=== PATIENT | male | born 1975 | race Hispanic/Latino ===

== ENCOUNTER 2019-03-10 09:56 | Day surgery (SDC) | payer BC ==
[2019-03-09 08:51] VITALS: BMI 21.5
[2019-03-10] MEDS ORDERED: Ondansetron PF 4 MG/2 ML Vial ONE (10:17)
[2019-03-10] MEDS ORDERED: PROPOFOL 200 MG/20 ML VIAL ONE (10:17)
[2019-03-10 11:38] LABS: #Eosinphils 0.3 thou/uL (0.0-0.7); #Lymphocytes 1.7 thou/uL (1.20-3.40); #Monocytes 0.9 thou/uL (0.11-0.59); #Neutrophils 5.7 thou/uL (1.40-6.50); %Basophils 0.6 % (0.0-1.0); %Eosinophils 3.5 % (0.0-10.0); %Lymphocytes 19.3 % (21.0-51.0); %Monocytes 10.3 % (0.0-10.0); %Neutrophils 66.3 % (42.0-75.0); Hemoglobin 11.5 g/dL (14.0-18.0); Mean Corpuscular HGB CONC 34.2 g/dL (32.0-36.0); Mean Corpuscular Hemoglobin 33.9 pg (27.0-31.0); Mean Corpuscular Volume 99.3 fL (78.0-98.0); Platelet Count 374 thou/uL (130-400); RBC Distribution Width 12.6 % (11.5-14.5); Red Blood Cell (RBC) Count 3.41 mill/uL (4.70-6.10); White Blood Cell (WBC) Count 8.6 thou/uL (4.8-10.8)
[2019-03-10 12:03] LABS: BUN (Urea Nitrogen) 50 mg/dL (8.9-20.6); Calc. Creatinine Clearance 5 mL/min (70-130); Calcium 9.3 mg/dL (7.8-10.44); Carbon Dioxide 27 mmol/L (22-29); Chloride 95 mmol/L (98-107); Estimated GFR-MDRD 3; Glucose 103 mg/dL (70-105); Potassium 3.8 mmol/L (3.5-5.1)
[2019-03-10] MEDS ORDERED: Levofloxacin 500 mg/D5W 100 ml Premix Bag ONE (12:06)
[2019-03-10 12:23] LABS: Sodium 136 mmol/L (136-145)
[2019-03-10 12:24] LABS: Anion Gap 18 mmol/L (10-20)
[2019-03-10] MEDS ORDERED: Bupivacaine/Epinephrine 0.25% 30 ML VIAL ONE (12:56)
[2019-03-10] MEDS ORDERED: Fentanyl 100 MCG/2 ML VIAL ONE (13:17)
[2019-03-10] MEDS ORDERED: Propofol 1,000 MG/100 ML VIAL IV ONE (13:17)
[2019-03-10] MEDS ORDERED: Heparin 5,000 UNITS/ML VIAL ONE (14:25)
--- NOTE | 2019-03-11 14:08 | OP ---
DATE OF PROCEDURE: 03/10/2019 PROCEDURE: Revision of peritoneal dialysis catheter. PREOPERATIVE DIAGNOSIS: Chronic infection and extrusion of external cuff of peritoneal dialysis catheter. POSTOPERATIVE DIAGNOSIS: Chronic infection and extrusion of external cuff of peritoneal dialysis catheter. HISTORY: Mr. Zana Lackey is a 43-year-old man who has had several abscesses at the exit site of his peritoneal dialysis catheter. These have cleared up but now the external cuff is visible and recommendation was made to revise the external portion of the peritoneal dialysis catheter to prevent contamination of the internal portion. DESCRIPTION OF PROCEDURE: After informed consent was obtained and appropriate preoperative antibiotics administered, the patient was taken to the operating room. He was placed in the supine position and monitored anesthesia care was administered. He was prepped and draped in standard sterile fashion and local anesthesia infused through the skin and subcutaneous tissue overlying the subcutaneous portion of the peritoneal catheter well away from the exit site which was excluded from the field with a Tegaderm. Dissection was carried down to the catheter tubing, which was dissected free and there was no fluid around the tubing or evidence of infection. The tubing was clamped and divided between clamps. The internal portion was connected to a peritoneal dialysis extended cath, which was then tunneled lateral to the original exit site with the subcutaneous position just proximal to the exit site. The external portion of the peritoneal catheter was tied off and allowed to retract into the subcutaneous tissues, that was then closed with 3-0 Monocryl sutures and the wound was irrigated. The incision was closed with 3-0 subcutaneous Monocryl and 4-0 subcuticular Monocryl sutures. Dermabond dressings were placed at this incision and at the new exit site. Attention was then turned to removal of the old peritoneal dialysis catheter. An elliptical incision was made around the exit site and the external portion of the catheter was removed. There was purulent fluid in the subcutaneous tissue, but the wound was not completely closed, instead it was irrigated and reapproximated at intervals with Monocryl sutures and Telfa aleida placed between the sutures. Tegaderm and gauze dressing was then placed over this and the patient was taken to Recovery in good condition. Estimated blood loss is minimal. There were no complications. There were no specimens. Job ID: [id number]
--- NOTE | 2019-03-12 13:48 | EKG ---
Test Reason : PREOP Blood Pressure : / mmHG Vent. Rate : 052 BPM Atrial Rate : 052 BPM P-R Int : 118 ms QRS Dur : 098 ms QT Int : 492 ms P-R-T Axes : 035 033 042 degrees QTc Int : 457 ms Sinus bradycardia Otherwise normal ECG When compared with ECG of 08-NOV-2016 17:27, Vent. rate has decreased BY [address] Abby MCFARLANE ([id number]) on 03/12/2019 1:47:43 PM Referred By: KEISHA Confirmed By:DR. Abby MCFARLANE
== END 2019-03-10 15:55 | disposition home or self-care (01) ==
LOC: SDC 09:56
PROVIDERS: ATTEND Surgery
PROC: 0WPG03Z Removal of Infusion Device from Peritoneal Cavity, Open Approach (ICD-10-PCS; principal; 2019-03-10)
DX: T85.71XA Infection and inflammatory reaction due to peritoneal dialysis catheter, initial encounter (principal); I12.0 Hypertensive chronic kidney disease with stage 5 chronic kidney disease or end stage renal disease; E11.22 Type 2 diabetes mellitus with diabetic chronic kidney disease; N18.6 End stage renal disease; F17.200 Nicotine dependence, unspecified, uncomplicated; Z99.2 Dependence on renal dialysis; Z79.899 Other long term (current) drug therapy
CPT/HCPCS: 36415; 80048; 85025; 93005; 93010; J1644; J1956; J2405; J2704; J3010

== ENCOUNTER 2019-12-16 05:43 | Day surgery (SDC) | payer BC ==
[2019-12-15 14:28] VITALS: BMI 21.4
[2019-12-16] MEDS ORDERED: Levofloxacin 500 mg/D5W 100 ml Premix Bag ONE (06:17)
[2019-12-16] MEDS ORDERED: EPINEPHrine 1 MG/ML AMP ONE (06:21)
[2019-12-16] MEDS ORDERED: Heparin 10,000 UNITS/1 ML VIAL ONE (06:21)
[2019-12-16] MEDS ORDERED: Bupivacaine 0.25% HCL 30 ML VIAL ONE (06:21)
[2019-12-16] MEDS ORDERED: Fentanyl 100 MCG/2 ML VIAL ONE ×2 (06:41→09:25)
[2019-12-16 06:52] LABS: #Eosinphils 0.2 thou/uL (0.0-0.7); #Lymphocytes 1.2 thou/uL (1.20-3.40); #Monocytes 0.8 thou/uL (0.11-0.59); #Neutrophils 4.1 thou/uL (1.40-6.50); %Basophils 0.3 % (0.0-1.0); %Eosinophils 3.7 % (0.0-10.0); %Lymphocytes 18.7 % (21.0-51.0); %Monocytes 12.9 % (0.0-10.0); %Neutrophils 64.4 % (42.0-75.0); Hemoglobin 10.4 g/dL (14.0-18.0); Mean Corpuscular HGB CONC 33.2 g/dL (32.0-36.0); Mean Corpuscular Hemoglobin 34.4 pg (27.0-31.0); Mean Platelet Volume 7.4 fL (7.4-10.4); Platelet Count 297 thou/uL (130-400); RBC Distribution Width 14.3 % (11.5-14.5); Red Blood Cell (RBC) Count 3.03 mill/uL (4.70-6.10); White Blood Cell (WBC) Count 6.4 thou/uL (4.8-10.8)
[2019-12-16 07:05] LABS: Anion Gap 17 mmol/L (10-20); BUN (Urea Nitrogen) 53 mg/dL (8.9-20.6); Calc. Creatinine Clearance 6 mL/min (70-130); Calcium 8.9 mg/dL (7.8-10.44); Carbon Dioxide 27 mmol/L (22-29); Chloride 96 mmol/L (98-107); Estimated GFR-MDRD 4; Glucose 93 mg/dL (70-105); Potassium 4.8 mmol/L (3.5-5.1); Sodium 135 mmol/L (136-145)
[2019-12-16] MEDS ORDERED: SUGAMMADEX SODIUM 200 MG/2 ML VIAL ONE (09:02)
--- NOTE | 2019-12-16 09:56 | PDOC.OP ---
Operative Note - Operative Note Operative Note: PROCEDURE: Laparoscopic peritoneal dialysis catheter replacement SURGEON: Mary Navarro M.D. DATE OF PROCEDURE: 12/16/2019 PREOPERATIVE DIAGNOSIS: Renal failure with recurrent exit site infections POSTOPERATIVE DIAGNOSIS: Renal failure with recurrent exit site infections HISTORY: Patient with renal failure on peritoneal dialysis dialysis. He has had recurrent skin infections at and near his exit site. Resiting the exit site did not lead to resolution of this problem so replacement of the catheter was recommended. PROCEDURE IN DETAIL: After informed consent was obtained and appropriate preoperative antibiotic were administered the patient was taken to the operating room, placed in supine position and general endotracheal anesthesia was administered. The abdomen was sterilely prepped and draped and the peritoneal catheter, which had been included in the prep and drape, was connected to the insufflation tubing and carbon dioxide gas insufflated to an intra-abdominal pressure 15 which the patient tolerated well. Local anesthesia infused at the level of the umbilicus. A transverse skin incision was made and the fascia was elevated and a [place] port advanced under direct laparoscopic vision into the abdominal cavity which was carefully examined. There was no evidence of Veress needle or trocar injury. There were no significant adhesions and the peritoneal catheter was in appropriate position in the pelvis. A 5 mm trocar was placed in the lateral upper abdomen and the patient was placed in Trendelenburg. The small bowel was easily drawn up out of the pelvis and no adhesions seen in this area. The bottom of the left posterior rectus sheath was identified. Local anesthesia was infused to the skin and subcutaneous tissues overlying and lateral to this area. A skin incision was made and an 8 mm trocar tunneled superiorly medially and then inferiorly through the rectus sheath entering the abdominal cavity just above the inferior edge of the rectus sheath. The peritoneal dialysis catheter was placed through the trocar and held in place positioning the inner cuff within the rectus muscle. The trocar was withdrawn and the end of the peritoneal dialysis catheter placed into the pelvis. The second cuff of the peritoneal dialysis catheter was positioned within the subcutaneous tissues and the skin incision at the exit site closed in 2 layers with 4-0 Monocryl suture. Saline was infused and drained easily out of the peritoneal cavity through the cuffed tunneled dialysis catheter. The extension tubing was attached and flushed with heparin and clamped. The camera was moved to the upper abdominal trocar site and the umbilical trocar removed. The fascia was bridged with a 0 Vicryl suture on a GraNee needle and the sutures secured not tied down. The trocar was replaced through the same defect and the camera moved back to the umbilical location. The upper abdominal trocar was removed and a 0 Vicryl suture on a GraNee needle used to close the fascial defect. Attention was then turned to removal of the right peritoneal catheter. Local anesthesia was infused at the right peritoneal catheter exit site and the subcutaneous cuff dissected free. The tubing was traced to the location of the subcutaneous extension connection point and local anesthesia infused at that location and a counter-incision made. Dissection was carried out to the tubing which was dissected free and the metal connector identified and dissected free of its encasing scar tissue. The tubing was clamped and cut and the external portion removed and discarded. The inner cuff was then dissected free of the rectus muscles and the intra-abdominal portion removed and discarded. Carbon dioxide was reinsuflated and the new catheter confirmed to still be in good position. The rectus sheath defect at the old catheter site was closed with O Vicryl on a Granee needle under direct laparoscopic viosion with excellent result. Carbon dioxide gas was allowed to desufflate through the umbilical trocar which was then removed and the fascia closed with the pre-existing suture. The skin incisions were closed with subcuticular 4-0 Monocryl suture with a small opening left at the exit site of the old catheter which was packed with iodoform. Dermabond dressings were placed and allowed to dry. Once the Dermabond was dry the PD exit sites were dressed with gauze and Tegaderm. The patient was extubated and taken to the recovery room in good condition. Estimated blood loss was minimal. There were no complications. There were no specimens.
[2019-12-16] MEDS ORDERED: HYDROcodone/Acetaminophen 5/325 mg Tablet ONE (11:55)
[2019-12-16] MEDS ORDERED: PROPOFOL 200 MG/20 ML VIAL ONE (12:12)
[2019-12-16] MEDS ORDERED: Glycopyrrolate 0.2 MG/ML 5 ML SYRINGE ONE (12:12)
[2019-12-16] MEDS ORDERED: Ondansetron PF 4 MG/2 ML Vial ONE (12:12)
[2019-12-16] MEDS ORDERED: PHENYLEPHRINE-NS 100 MCG/ML 10 ML SYRINGE ONE (12:12)
[2019-12-16] MEDS ORDERED: EPHEDRINE 25 MG/5 ML SYRINGE ONE (12:12)
[2019-12-16] MEDS ORDERED: Metoclopramide HCl 10 MG/2 ML VIAL ONE (12:12)
[2019-12-16] MEDS ORDERED: Rocuronium Bromide 10 MG/ML (10ML VIAL) ONE (12:12)
[2019-12-16] MEDS ORDERED: Lidocaine 1% PF 5 ML VIAL ONE (12:12)
== END 2019-12-16 12:15 | disposition home or self-care (01) ==
LOC: SDC 05:43
PROVIDERS: ATTEND Surgery
PROC: 0J2TXYZ Change Other Device in Trunk Subcutaneous Tissue and Fascia, External Approach (ICD-10-PCS; principal; 2019-12-16)
DX: T85.71XA Infection and inflammatory reaction due to peritoneal dialysis catheter, initial encounter (principal); N17.9 Acute kidney failure, unspecified; I12.0 Hypertensive chronic kidney disease with stage 5 chronic kidney disease or end stage renal disease; E11.22 Type 2 diabetes mellitus with diabetic chronic kidney disease; N18.6 End stage renal disease; Z79.899 Other long term (current) drug therapy
CPT/HCPCS: 36415; 80048; 85025; J0171; J0690; J1644; J1956; J2001; J2405; J2704; J2765; J3010; S0020

== ENCOUNTER 2019-12-19 11:19 | Inpatient (IN) | payer BC ==
[2019-12-19 12:17] LABS: #Eosinphils 0.2 thou/uL (0.0-0.7); #Lymphocytes 0.9 thou/uL (1.20-3.40); #Monocytes 0.7 thou/uL (0.11-0.59); #Neutrophils 5.2 thou/uL (1.40-6.50); %Lymphocytes 12.4 % (21.0-51.0); %Monocytes 9.9 % (0.0-10.0); %Neutrophils 74.7 % (42.0-75.0); Hemoglobin 10.8 g/dL (14.0-18.0); Mean Corpuscular HGB CONC 34.1 g/dL (32.0-36.0); Mean Corpuscular Hemoglobin 34.3 pg (27.0-31.0); Mean Platelet Volume 7.6 fL (7.4-10.4); Platelet Count 294 thou/uL (130-400); RBC Distribution Width 13.4 % (11.5-14.5); Red Blood Cell (RBC) Count 3.16 mill/uL (4.70-6.10); White Blood Cell (WBC) Count 6.9 thou/uL (4.8-10.8)
[2019-12-19 12:35] LABS: ALT (SGPT) Less than 7 U/L (8-55); AST (SGOT) 50 U/L (5-34); Alkaline Phosphatase 83 U/L (40-110); Anion Gap 18 mmol/L (10-20); BUN (Urea Nitrogen) 66 mg/dL (8.9-20.6); Bilirubin, Total 0.3 mg/dL (0.2-1.2); Calc. Creatinine Clearance 0 mL/min (70-130); Calcium 8.8 mg/dL (7.8-10.44); Carbon Dioxide 24 mmol/L (22-29); Chloride 92 mmol/L (98-107); Estimated GFR-MDRD 3; Globulin 3.3 g/dL (2.4-3.5); Glucose 95 mg/dL (70-105); Potassium 5.6 mmol/L (3.5-5.1); Protein, Total 6.3 g/dL (6.0-8.3); Sodium 128 mmol/L (136-145)
[2019-12-19] MEDS ORDERED: Albuterol Sulfate 2.5 mg/3 ml Neb ONE (15:04)
[2019-12-19] MEDS ORDERED: Albuterol Sulfate 2.5 mg/0.5 ml Neb ONE (15:04)
[2019-12-19] MEDS ORDERED: Fentanyl 100 MCG/2 ML VIAL ONE (15:12)
[2019-12-19] MEDS ORDERED: Sodium Bicarb 50 MEQ/50 ML VIAL ONE (15:27)
[2019-12-19] MEDS ORDERED: Calcium Chloride 1 GM/10 ML Abboject SYRINGE ONE (15:27)
[2019-12-19] MEDS ORDERED: Insulin Regular 300 UNITS/3 ML VIAL ONE (15:27)
[2019-12-19] MEDS ORDERED: Dextrose 50% Abboject 50 ML SYRINGE ONE (15:27)
[2019-12-19] MEDS ORDERED: Dextrose 50% Abboject 50 ML SYRINGE SLOW IVP PRN (16:28)
[2019-12-19] MEDS ORDERED: Insulin Regular 300 UNITS/3 ML VIAL IVP SCH (18:00)
[2019-12-19] MEDS ORDERED: Insulin Regular 300 UNITS/3 ML VIAL SC PRN (18:15)
[2019-12-19] MEDS ORDERED: Dextrose 5% in Water 1,000 ML IV PRN (18:15)
[2019-12-19] MEDS ORDERED: Dextrose 50% Abboject 50 ML SYRINGE IVP PRN (18:15)
--- NOTE | 2019-12-19 18:19 | CON ---
DATE OF CONSULTATION: CONSULTING PHYSICIAN: Nevaeh Hawk MD REQUESTING PHYSICIAN: Dr. Harvey with ER. REASON FOR CONSULTATION: Hyperkalemia and end-stage renal disease. IMPRESSION: 1. End-stage renal disease, on peritoneal dialysis, unfortunately could not dialyze with new dialysis catheter. 2. Hyperkalemia related to missed dialysis. 3. Hyponatremia, probably related to #1. PLAN: 1. The patient's hyperkalemia to be medically managed. Hopefully, we will be able to put this under control pending when dialysis access is secured to initiate dialysis on this patient within the next 24 hours. 2. Renally dose all medications and place the patient on renal diet and low potassium diet. 3. Kayexalate, insulin, and dextrose to be used to address the hyperkalemia. 4. Monitor the sodium. Monitor the electrolyte closely, especially related to the hyperkalemia. HISTORY OF PRESENT ILLNESS: History is that of a 44-year-old gentleman with end-stage renal disease, on peritoneal dialysis, who unfortunately had to change his peritoneal dialysis due to recurrent infection. The patient tried low-volume dialysis; however, leakage could not allow this patient to continue with this modality of treatment. The patient now presented to ER, and elevated potassium was noted. Decision has now been taken to admit this patient to secure an access for alternate dialysis regimen. PAST MEDICAL HISTORY: Significant for end-stage renal disease, on peritoneal dialysis; hypertension; diabetes mellitus; hyperphosphatemia; and secondary hyperparathyroidism. MEDICATIONS: Reviewed as documented on [facility]. ALLERGIES: NO KNOWN DRUG ALLERGIES. FAMILY HISTORY: No alcohol. No drug use. REVIEW OF SYSTEMS: As documented in the body of history. All the other systems were reviewed and found not to be significantly related to present illness. PHYSICAL EXAMINATION: GENERAL: The patient is noted to be hemodynamically stable. Afebrile. HEENT: Unremarkable. CARDIOVASCULAR: First and second heart sounds were heard. RESPIRATORY: Clear to auscultation. DIGESTIVE SYSTEM: Revealed a benign abdomen with positive bowel sounds. EXTREMITIES: No peripheral edema. SKIN: No new gross rash. LYMPHATICS: No peripheral lymphadenopathy. SUMMARY: A 44-year-old gentleman with end-stage renal disease, here because of failed access. Thank you for this consultation. We will follow with you. Job ID: [id number]
[2019-12-19] MEDS ORDERED: Sodium Chloride 0.9% 10 ML ONE (21:00)
[2019-12-19] MEDS: busPIRone HCl 5 MG TAB PO SCH (21:14)
[2019-12-19] MEDS: Pravastatin Sodium 40 MG TAB PO SCH (21:14)
[2019-12-19] MEDS: Carvedilol 25 MG TAB PO SCH (21:14)
[2019-12-20 04:30] LABS: Albumin 2.7 g/dL (3.5-5.0); Anion Gap 18 mmol/L (10-20); BUN (Urea Nitrogen) 71 mg/dL (8.9-20.6); BUN/Creatinine Ratio 3.82; Calc. Creatinine Clearance 5 mL/min (70-130); Calcium 8.4 mg/dL (7.8-10.44); Carbon Dioxide 27 mmol/L (22-29); Chloride 92 mmol/L (98-107); Estimated GFR-MDRD 3; Glucose 79 mg/dL (70-105); Phosphorus 8.3 mg/dL (2.3-4.7); Potassium 5.4 mmol/L (3.5-5.1); Sodium 132 mmol/L (136-145)
--- NOTE | 2019-12-20 07:25 | HP ---
REASON FOR ADMISSION/CHIEF COMPLAINT: Abdominal pain and nonfunctioning peritoneal dialysis. HISTORY OF PRESENT ILLNESS: Mr. Spann is a 44-year-old male with past medical history of end-stage renal disease, hypertension, diabetes, was on peritoneal dialysis, came in because of abdominal pain. He says the peritoneal dialysis started leaking last night and was having some abdominal pain. He did not have any fever. No chest pain. No nausea or vomiting. The patient is sent to the emergency room for possible hemodialysis and fistula placement. He has been on peritoneal dialysis for the last 4 years. He did not have any respiratory problems. The patient was evaluated in the ER. The patient was found to have severe hyperkalemia, was given calcium chloride, insulin and dextrose in the ER. The patient is admitted for further evaluation and management. PAST MEDICAL HISTORY: 1. Hypertension. 2. Diabetes mellitus. 3. End-stage renal disease, on peritoneal dialysis. 4. Hyperlipidemia. PAST SURGICAL HISTORY: 1. Status post surgery for right bimalleolar ankle fracture. 2. Status post left total hip arthroplasty. 3. Status post dialysis access procedure. ALLERGIES: NKDA. CURRENT MEDICATIONS: The patient is on: 1. Pravastatin 40 mg at bedtime. 2. Fenofibrate 160 at bedtime. 3. Carvedilol b.i.d. 4. Amlodipine 10 mg daily. 5. Vitamin D 2000 units daily. FAMILY HISTORY: Nothing contributory. SOCIAL HISTORY: The patient lives with family. No history of smoking. No history of alcohol. REVIEW OF SYSTEMS: CARDIOVASCULAR: No chest pain. No shortness of breath. RESPIRATORY: No fever or cough. GASTROINTESTINAL: No nausea or vomiting. Has abdominal pain. CENTRAL NERVOUS SYSTEM: No headache. No dizziness. PHYSICAL EXAMINATION: GENERAL: The patient is alert, awake, oriented x3. VITAL SIGNS: Temperature 98, pulse 75, respirations 20, blood pressure 150/100. HEENT: Head is normocephalic, atraumatic. Pupils equal and reactive. Nasopharynx is pale and dry. NECK: Supple. No JVD. LUNGS: Bilateral air entry present. No rales, no rhonchi. HEART: S1 and S2 regular. ABDOMEN: Soft. No distention. No tenderness. Bowel sounds present. RECTAL: Deferred. CENTRAL NERVOUS SYSTEM: No focal deficits. LABORATORY DATA: CBC shows WBC 6.9, hemoglobin 10, hematocrit 31, platelets 294. Metabolic panel; sodium 128, potassium 5.6, chloride 92, CO2 25, BUN 66, creatinine 17, glucose 95, AST 15, ALT 7. ASSESSMENT: 1. Failed peritoneal dialysis. 2. Hyperkalemia. 3. End-stage renal disease. 4. Hypertension. 5. Diabetes mellitus. 6. Hyperlipidemia. PLAN: 1. Vital signs q.4 hours. 2. Activities, as tolerated. 3. Allergies, NKDA. 4. Hep-Lock. 5. Continue his home medication. Accu-Chek before meals and at bedtime with sliding scale mild with regular insulin. 6. Nephrology consult for possible hemodialysis. Job ID: [id number]
[2019-12-20] MEDS ORDERED: Ciprofloxacin 500 MG TAB PO SCH (09:00)
[2019-12-20] MEDS: hydrALAZINE 25 MG TAB PO SCH ×2 (09:15→19:30)
[2019-12-20] MEDS: Sevelamer Carbonate 800 MG TAB PO SCH ×3 (09:16→19:09)
[2019-12-20] MEDS: Amlodipine 10 MG TAB PO SCH (09:17)
[2019-12-20] MEDS: busPIRone HCl 5 MG TAB PO SCH ×2 (09:18→21:26)
[2019-12-20] MEDS: Carvedilol 25 MG TAB PO SCH ×2 (09:18→21:26)
[2019-12-20] MEDS: Cyanocobalamin (Vitamin B-12) 1,000 MCG TAB PO SCH (09:18)
[2019-12-20] MEDS: Promethazine 25 MG TAB PO PRN ×2 (09:23→19:44)
--- NOTE | 2019-12-20 10:13 | CON ---
DATE OF CONSULTATION: REASON FOR CONSULTATION: Dialysis access. HISTORY OF PRESENT ILLNESS: Mr. Zana Lackey is a 44-year-old man, who undergoes chronic peritoneal dialysis. He had problems with recurrent skin infections near the exit site of his catheter, and it was felt that his catheter was likely colonized, acting as a source for these abscesses. His catheter was re-sited to new position, but he noticed some leakage around the catheter with low volume peritoneal dialysis, so he was brought into the hospital to plan for hemodialysis catheter placement. He had a left AV fistula placed in the past, but this never developed. He denies any abdominal pain beyond just the normal postoperative soreness. He denies any fevers or chills. The peritoneal dialysate has not been cloudy. PAST MEDICAL HISTORY: Diabetes, hypertension, end-stage renal failure, and hyperlipidemia. PAST SURGICAL HISTORY: ORIF of an ankle fracture, hip replacement, PD catheter, and fistula surgery. ALLERGIES: HE HAS NO KNOWN DRUG ALLERGIES. OUTPATIENT MEDICATIONS: Include, 1. Pravastatin. 2. Fenofibrate. 3. Carvedilol. 4. Amlodipine. 5. Vitamin D. 6. Buspirone. 7. Ciprofloxacin. 8. Pravastatin. 9. Sevelamer. 10. Hydralazine. FAMILY HISTORY: Noncontributory. SOCIAL HISTORY: The patient does not smoke, drink, or use illicit drugs. PHYSICAL EXAMINATION: VITAL SIGNS: T-max 99.3, heart rate 76, respirations 18, 95% saturated on room air, and blood pressure 157/90. GENERAL: Reveals a healthy-appearing man, in no acute distress. He is not flushed or toxic, not jaundiced or icteric. HEENT: Unremarkable. NECK: Supple without lymphadenopathy or thyroid nodules. HEART: Regular in its rate and rhythm without murmurs, rubs, or gallops. LUNGS: Clear to auscultation bilaterally. ABDOMEN: Soft and nondistended with appropriate postoperative tenderness. His incisions look good. The gauze around his exit site is dry. Does not exhibit any rigidity, rebound, or guarding. EXTREMITIES: Warm and well perfused. He has a good forearm cephalic vein on the left side on the dorsum of his forearm. NEURO: No focal deficits. PSYCHIATRIC: Alert, oriented, and appropriate. LABORATORY DATA: White count is normal at 6.9, hematocrit 31.8, and platelets 294. Potassium is 5.4 this morning, down from 5.6 on admission. BUN and creatinine are 71 and 18.58, glucose is 115, and albumin is 2.7. ASSESSMENT: End-stage renal failure, on peritoneal dialysis chronically. The plan was to continue with low volume peritoneal dialysis, but he has had problems with leaking around the catheter, so we are going to transition into hemodialysis for a brief period of time. He had a fistula on the left, which failed to develop, but he has a suitable vein on the dorsum of his forearm, which could be brought across to the radial artery for a new fistula. If there is time on the OR schedule today, we will plan to do that in case he continues to have problems with his peritoneal dialysis. Otherwise, we will plan on a hemodialysis catheter today. Inherent risks include, but are not limited to, bleeding, infection, risks of anesthesia, hemothorax, pneumothorax, and need for other procedures. All the patient's questions were answered. He is on the OR schedule as an add-on for a hemodialysis catheter and possible AV fistula on the left arm. Job ID: [id number]
[2019-12-20] MEDS ORDERED: Lidocaine 1% PF 5 ML VIAL ONE (11:03)
[2019-12-20] MEDS ORDERED: Bupivacaine HCl 0.5%/Epinephrine 1:200,000/PF 30 ml Vial ONE (11:03)
[2019-12-20] MEDS ORDERED: Bupivacaine 0.25% HCL 30 ML VIAL ONE (14:33)
[2019-12-20] MEDS ORDERED: Sodium Chloride 0.9% 30 ML ONE (14:33)
[2019-12-20] MEDS ORDERED: Lidocaine 1% w/Epinephrine 1:100K 20 ML VIAL ONE (14:33)
[2019-12-20] MEDS ORDERED: Heparin 10,000 UNITS/1 ML VIAL ONE (14:33)
[2019-12-20] MEDS ORDERED: Heparin 5,000 UNITS/ML VIAL ONE (14:33)
[2019-12-20] MEDS ORDERED: Midazolam HCl 2 mg/2 ml Vial ONE (15:42)
[2019-12-20] MEDS ORDERED: Fentanyl 100 MCG/2 ML VIAL ONE (15:42)
[2019-12-20] MEDS ORDERED: Propofol 1,000 MG/100 ML VIAL IV ONE (15:46)
[2019-12-20] MEDS ORDERED: Ondansetron HCl/PF 4 MG/2 ML Vial IVP PRN (17:40)
[2019-12-20] MEDS ORDERED: Promethazine HCl 25 MG/ML VIAL IM PRN (17:40)
[2019-12-20] MEDS ORDERED: PACU-Morphine 4MG/ML VIAL SLOW IVP PRN (17:40)
[2019-12-20] MEDS ORDERED: Morphine Sulfate 2 MG/ML SYRINGE SLOW IVP PRN (17:40)
[2019-12-20] MEDS ORDERED: Promethazine HCl 25 MG/ML VIAL SLOW IVP PRN (17:40)
--- NOTE | 2019-12-20 18:06 | PRG ---
DATE OF SERVICE: 12/20/2019 SUBJECTIVE: The patient is noted with the following vital signs. OBJECTIVE: VITAL SIGNS: Afebrile, temperature 98, pulse 69, respiratory rate 16, O2 saturation 96%, and blood pressure 156/94. HEENT: Unremarkable. CARDIOVASCULAR: First and second heart sounds were heard. RESPIRATORY SYSTEM: Clear to auscultation. DIGESTIVE SYSTEM: Benign abdomen. Positive bowel sounds. EXTREMITIES: No peripheral edema. SKIN: No new gross rash. LYMPHATICS: No peripheral lymphadenopathy. LABORATORY INVESTIGATIONS: Significant for potassium of 5.4, BUN of 71, and creatinine 18.58. IMPRESSION: 1. End-stage renal disease. 2. Profound azotemia. 3. Hyperkalemia. PLAN: 1. The patient to be initiated on hemodialysis; however, if the patient comes out very late today, we will initiate hemodialysis tomorrow. 2. We will start with a low prescription to avoid precipitating disequilibrium syndrome given the fact this patient has not been dialyzed for some time. 3. Low-potassium diet. 4. The patient for dialysis as an outpatient on Thursday. Therefore, after dialysis tomorrow the patient could be discharged afterwards to continue with outpatient dialysis. 5. Further management to be dependent on the clinical course. Job ID: [id number]
--- NOTE | 2019-12-20 18:50 | RAD ---
EXAM: CHEST ONE VIEW: 12/20/19 HISTORY: Hemodialysis catheter placement. COMPARISON: 02/28/17. FINDINGS: Right dural lumen access catheter is placed without pneumothorax or pleural effusion. IMPRESSION: Hemodialysis catheter placement without complication. POS: RRE
[2019-12-20] MEDS: Fenofibrate Nanocrystallized 145 MG TAB PO SCH (19:31)
[2019-12-20] MEDS: Acetaminophen 500 MG TAB PO PRN (21:25)
[2019-12-20] MEDS: Pravastatin Sodium 40 MG TAB PO SCH (21:26)
[2019-12-21 05:35] LABS: Albumin 2.4 g/dL (3.5-5.0); Anion Gap 18 mmol/L (10-20); BUN (Urea Nitrogen) 78 mg/dL (8.9-20.6); BUN/Creatinine Ratio 3.74; Calc. Creatinine Clearance 5 mL/min (70-130); Calcium 7.7 mg/dL (7.8-10.44); Carbon Dioxide 24 mmol/L (22-29); Chloride 94 mmol/L (98-107); Estimated GFR-MDRD 2; Glucose 102 mg/dL (70-105); Phosphorus 7.9 mg/dL (2.3-4.7); Potassium 6.4 mmol/L (3.5-5.1); Sodium 130 mmol/L (136-145)
[2019-12-21] MEDS: hydrALAZINE 25 MG TAB PO SCH ×2 (08:50→17:11)
[2019-12-21] MEDS: busPIRone HCl 5 MG TAB PO SCH ×2 (08:51→22:02)
[2019-12-21] MEDS: Amlodipine 10 MG TAB PO SCH (08:51)
[2019-12-21] MEDS: Sevelamer Carbonate 800 MG TAB PO SCH ×3 (08:51→17:12)
[2019-12-21] MEDS: Cyanocobalamin (Vitamin B-12) 1,000 MCG TAB PO SCH (08:51)
[2019-12-21] MEDS: Carvedilol 25 MG TAB PO SCH ×2 (08:51→22:02)
--- NOTE | 2019-12-21 09:02 | PDOC.OP ---
Operative Note - Operative Note Operative Note: DATE OF PROCEDURE: 12/20/2019 PROCEDURE: Placement of tunneled hemodialysis catheter with ultrasound and fluoroscopic guidance left snuffbox AV fistula. SURGEON: Mary Navarro M.D. PREOPERATIVE DIAGNOSIS: End-stage renal failure. POSTOPERATIVE DIAGNOSIS: End-stage renal failure. HISTORY: Patient with end-stage renal failure previously on peritoneal dialysis but experiencing some leakage around his catheter. 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 PROCEDURE: After informed consent was obtained and appropriate preoperative antibiotics were administered, the patient was taken to the Operating Room, placed in the supine position and monitored anesthesia care was administered. The neck and chest were prepped and draped in a standard sterile fashion and the patient placed in Trendelenburg position. A sterile ultrasound probe was used to identify the patent compressible right IJ vein which was accessed under direct ultrasound guidance. A wire was threaded through the needle and confirmed by ultrasound to be within the patent compressible vessel with the tip in the vena cava by fluoroscopy. Local anesthesia was infused to the skin and subcutaneous tissues of the right neck and chest. An infraclavicular incision was made and a catheter tunneled from the infraclavicular to the right IJ access site. The right IJ was sequentially dilated over the wire following which a dilator and sheath were placed over the wire and the dilator and wire removed leaving the sheath in place. The catheter was tunneled through the sheath which was then split and removed leaving the catheter in place. This was confirmed by fluoroscopy to be in good position in the superior vena cava with no kinking of the course of the catheter. Both ports easily aspirated dark venous nonpulsatile blood and easily flushed without resistance. Heparin was instilled to the quantity specified on the hub, and the hub was secured to the skin with 3-0 nylon sutures. The skin incision at the neck was closed in two layers with 4-0 Monocryl suture and Dermabond dressings were placed. The skin at the exit site was snugged up around the catheter with 4-0 Monocryl suture and Dermabond was placed there as well. Once the Dermabond was dry, an occlusive antimicrobial dressing was placed at the exit site. Attention was then turned to creation of the left AV fistula.. A preoperative block had been placed by anesthesia and adequacy confirmed. The patient's arm was prepped and draped in standard sterile fashion. The patient had a large branch of the cephalic vein on the dorsum of his hand near the snuffbox and a good radial artery pulse at that location. The palpable cephalic vein and radial artery were marked on the skin. An incision was made between these 2 structures and dissection carried down to the cephalic vein. This was felt to be of adequate caliber and quality to support an AV fistula. The vein was interrogated with cardiac dilators and easily accepted up to a 3.5 mm dilator. The vein was flushed with heparinized saline and clamped. The radial artery was identified and dissected free and was felt to be of adequate caliber and quality to support a fistula. This was dissected free. Heparin was administered systemically and allowed to circulate for 3 minutes. After the heparin had circulated for 3 minutes, the radial artery was clamped proximally and distally. An anterior arteriotomy was created with an 11 blade and extended with Mitchell scissors. The vein was spatulated and an end-to-side anastomosis was created with excellent technical result. Prior to tying down the anastomosis, the arterial inflow was released flushing the anastomosis. The anastomosis was then secured and hemostasis was verified. Flow was established first through the fistula following which flow was restored through the artery. The patient had a palpable thrill in the cephalic vein as well as a good Doppler signal to the level of the antecubital fossa. The wound was irrigated and examined for hemostasis was again confirmed to be excellent. The subcutaneous tissues were reapproximated with a running 3-0 Monocryl sutures and the skin was closed with running 4-0 subcuticular Monocryl suture. Dermabond dressings were placed. Prior to leaving the operating room the fistula was again examined by Doppler and a good bruit confirmed. The patient was then taken to recovery in good condition. Estimated blood loss was minimal. There were no complications. There were no specimens.
[2019-12-21] MEDS ORDERED: Heparin 10,000 UNITS/ 10 ML VIAL ONE (11:02)
[2019-12-21] MEDS: Acetaminophen 500 MG TAB PO PRN ×3 (12:25→22:08)
--- NOTE | 2019-12-21 16:13 | PDOC.GSPN ---
Surgery Progress Note: Subj - Subjective Narrative: Fistula has a good thrill. Hand is warm and pink. No significant swelling. He is to follow-up in my clinic in 2 weeks. Signing off for now. Surgery Progress Note: Obj - Vital signs Vital signs: Vital Signs - Most Recent Temp Pulse Resp BP Pulse Ox 98.6 F 84 19 153/81 H 93 L 12/21/19 16:00 12/21/19 16:00 12/21/19 16:00 12/21/19 16:00 12/21/19 16:00 Surgery Progress Note: Results - Labs Result Diagrams: 12/19/19 12:08 12/21/19 04:38 Lab results: Laboratory Results - last 24 hr 12/21/19 12/21/19 12/21/19 04:38 05:23 12:32 Sodium 130 L Potassium 6.4 H Chloride 94 L Carbon Dioxide 24 Anion Gap 18 BUN 78 H Creatinine 20.83 H Estimated GFR (MDRD) 2 BUN/Creatinine Ratio 3.74 Glucose 102 POC Glucose 118 H 90 Calcium 7.7 L Phosphorus 7.9 H Albumin 2.4 L
[2019-12-21] MEDS: Fenofibrate Nanocrystallized 145 MG TAB PO SCH (17:11)
[2019-12-21] MEDS: Pravastatin Sodium 40 MG TAB PO SCH (22:02)
[2019-12-22] MEDS: Acetaminophen 500 MG TAB PO PRN ×2 (03:33→17:41)
[2019-12-22 05:13] LABS: Albumin 2.3 g/dL (3.5-5.0); Anion Gap 14 mmol/L (10-20); BUN (Urea Nitrogen) 45 mg/dL (8.9-20.6); BUN/Creatinine Ratio 3.11; Calc. Creatinine Clearance 7 mL/min (70-130); Calcium 7.7 mg/dL (7.8-10.44); Carbon Dioxide 27 mmol/L (22-29); Chloride 96 mmol/L (98-107); Estimated GFR-MDRD 4; Glucose 98 mg/dL (70-105); Phosphorus 5.8 mg/dL (2.3-4.7); Sodium 132 mmol/L (136-145)
--- NOTE | 2019-12-22 09:07 | PRG ---
DATE OF SERVICE: 12/21/2019 SUBJECTIVE: The patient was seen and examined, noted with the following vital signs. OBJECTIVE: VITAL SIGNS: Afebrile with temperature 98.6, pulse 84, respiratory rate of 19, O2 saturation 98%, blood pressure 152/81. HEENT EXAMINATION: Unremarkable. CARDIOVASCULAR SYSTEM: First and second heart sounds were heard. RESPIRATORY: Clear to auscultation. DIGESTIVE: Revealed a benign abdomen with positive bowel sounds. EXTREMITIES: There is no peripheral edema. SKIN EXAMINATION: No new gross rash. LYMPHATICS: No peripheral lymphadenopathy. LABORATORY INVESTIGATIONS: Significant for potassium of 6.1, BUN of 78, creatinine of 20.83, calcium 7.7, phosphorus 7.9, albumin 2.4. IMPRESSION: 1. End-stage renal disease. 2. Severe hyperkalemia in the context of end-stage renal disease. 3. Hyperphosphatemia. 4. Hyperlipidemia. PLAN: 1. The patient to be emergently dialyzed today, . 2. The patient to be as patient does have outpatient dialysis placement . Job ID: [id number]
[2019-12-22] MEDS ORDERED: Heparin 10,000 UNITS/ 10 ML VIAL ONE (09:27)
[2019-12-22] MEDS: Sevelamer Carbonate 800 MG TAB PO SCH ×3 (11:53→17:41)
[2019-12-22] MEDS: busPIRone HCl 5 MG TAB PO SCH ×2 (11:53→20:37)
[2019-12-22] MEDS: hydrALAZINE 25 MG TAB PO SCH ×2 (11:53→17:42)
[2019-12-22] MEDS: Amlodipine 10 MG TAB PO SCH (11:54)
[2019-12-22] MEDS: Cyanocobalamin (Vitamin B-12) 1,000 MCG TAB PO SCH (11:54)
[2019-12-22] MEDS: Carvedilol 25 MG TAB PO SCH ×2 (11:54→20:37)
[2019-12-22 14:58] VITALS: BMI 22.8
--- NOTE | 2019-12-22 17:09 | PRG ---
DATE OF SERVICE: 12/22/2019 SUBJECTIVE: The patient is seen and examined, undergoing dialysis. Hemodynamically stable. OBJECTIVE: HEENT: Unremarkable. CARDIOVASCULAR: First and second heart sounds were heard. RESPIRATORY: Clear to auscultation. DIGESTIVE: Revealed a benign abdomen with positive bowel sounds. EXTREMITIES: No peripheral edema. SKIN: No new gross rash. LYMPHATICS: No peripheral lymphadenopathy. IMPRESSION: 1. End-stage renal disease, on hemodialysis now, normally on peritoneal dialysis. 2. Uremia. 3. Hyperkalemia, improved. PLAN: 1. The patient is undergoing the second session of dialysis today. We will plan on stop the patient on dialysis tomorrow. From the renal standpoint after dialysis tomorrow, the patient can be discharged to follow up with outpatient dialysis next week. 2. Further management to be dependent on the clinical course. Job ID: [id number]
[2019-12-22] MEDS: Fenofibrate Nanocrystallized 145 MG TAB PO SCH (17:41)
[2019-12-22] MEDS: Pravastatin Sodium 40 MG TAB PO SCH (20:37)
[2019-12-23] MEDS: hydrALAZINE 25 MG TAB PO SCH ×2 (09:33→18:59)
[2019-12-23] MEDS: Carvedilol 25 MG TAB PO SCH (09:34)
[2019-12-23] MEDS: Amlodipine 10 MG TAB PO SCH (09:34)
[2019-12-23] MEDS: Sevelamer Carbonate 800 MG TAB PO SCH ×3 (09:34→18:59)
[2019-12-23] MEDS: Cyanocobalamin (Vitamin B-12) 1,000 MCG TAB PO SCH (09:34)
[2019-12-23] MEDS: busPIRone HCl 5 MG TAB PO SCH (09:35)
[2019-12-23 11:45] VITALS: TEMP 97.7
[2019-12-23] MEDS ORDERED: Heparin 10,000 UNITS/ 10 ML VIAL ONE (12:55)
[2019-12-23] MEDS: Fenofibrate Nanocrystallized 145 MG TAB PO SCH (18:59)
[2019-12-23 19:00] VITALS: BP 170/91
[2019-12-23] MEDS: Acetaminophen 500 MG TAB PO PRN (19:00)
[2019-12-23] MEDS ORDERED: Atorvastatin Calcium 10 MG TAB PO SCH (21:00)
--- NOTE | 2019-12-24 15:45 | EKG ---
Test Reason : Blood Pressure : / mmHG Vent. Rate : 069 BPM Atrial Rate : 069 BPM P-R Int : 148 ms QRS Dur : 088 ms QT Int : 392 ms P-R-T Axes : 066 019 043 degrees QTc Int : 420 ms Normal sinus rhythm Normal ECG Confirmed by ERMELINDA HYMAN, RACHID ([id number]), slot editor RAJANI ACEVEDO ([id number]) on 12/24/2019 3:45:21 PM Referred By: Confirmed By:RACHID WADSWORTH MD
--- NOTE | 2019-12-25 09:02 | PRG ---
DATE OF SERVICE: 12/23/2019 SUBJECTIVE: The patient is seen and examined with no new complaint, noted with the following vital signs. OBJECTIVE: VITAL SIGNS: Afebrile, temperature 97.7; pulse 72; respiratory rate 16; O2 sat 93%; blood pressure 149/87. HEENT: Unremarkable. CARDIOVASCULAR: First and second heart sounds were heard. RESPIRATORY: Clear to auscultation. DIGESTIVE: Benign abdomen. Positive bowel sounds. EXTREMITIES: No peripheral edema. SKIN: No new gross rash. LYMPHATICS: No peripheral lymphadenopathy. IMPRESSION: End-stage renal disease, currently on hemodialysis peritoneal dialysis. PLAN: The patient to be dialyzed today and afterwards. From the renal standpoint, the patient can be discharged today to follow up with the outpatient dialysis unit next week. Job ID: [id number]
== END 2019-12-23 20:24 | disposition home or self-care (01) | DRG 907 ==
LOC: ERS 11:19 → 2NO 17:47
PROVIDERS: ADMIT Internal Medicine; ATTEND Internal Medicine
PROC: 031C0ZF Bypass Left Radial Artery to Lower Arm Vein, Open Approach (ICD-10-PCS; principal; 2019-12-20)
PROC: 0JH63XZ Insertion of Tunneled Vascular Access Device into Chest Subcutaneous Tissue and Fascia, Percutaneous Approach (ICD-10-PCS; 2019-12-20)
PROC: 02HV33Z Insertion of Infusion Device into Superior Vena Cava, Percutaneous Approach (ICD-10-PCS; 2019-12-20)
PROC: B5181ZA Fluoroscopy of Superior Vena Cava using Low Osmolar Contrast, Guidance (ICD-10-PCS; 2019-12-20)
PROC: B548ZZA Ultrasonography of Superior Vena Cava, Guidance (ICD-10-PCS; 2019-12-20)
PROC: 5A1D70Z Performance of Urinary Filtration, Intermittent, Less than 6 Hours Per Day (ICD-10-PCS; 2019-12-21)
DX: T85.611A Breakdown (mechanical) of intraperitoneal dialysis catheter, initial encounter (principal); N18.6 End stage renal disease; N25.81 Secondary hyperparathyroidism of renal origin; I12.0 Hypertensive chronic kidney disease with stage 5 chronic kidney disease or end stage renal disease; E87.1 Hypo-osmolality and hyponatremia; E87.5 Hyperkalemia; E11.22 Type 2 diabetes mellitus with diabetic chronic kidney disease; E78.5 Hyperlipidemia, unspecified; Z96.642 Presence of left artificial hip joint; E83.39 Other disorders of phosphorus metabolism; Y84.8 Other medical procedures as the cause of abnormal reaction of the patient, or of later complication, without mention of misadventure at the time of the procedure; Z99.2 Dependence on renal dialysis; Z79.899 Other long term (current) drug therapy
CPT/HCPCS: 36415; 36416; 71045; 76000; 80048; 80053; 80069; 85025; 90935; 93005; 94640; 94760; C1752; C1769; G0257; J0171; J0670; J0690; J1644; J1815; J1956; J2001; J2250; J2405; J2704; J2765; J3010; J7611; Q0169; S0020

== ENCOUNTER 2020-04-13 08:23 | Outpatient (CLI) | payer BC, OTHER ==
[2020-04-13 17:27] LABS: Mean Corpuscular HGB CONC 32.9 g/dL (32.0-36.0); Mean Corpuscular Hemoglobin 33.6 pg (27.0-31.0); Mean Platelet Volume 8.1 fL (7.4-10.4); Platelet Count 326 thou/uL (130-400); Red Blood Cell (RBC) Count 4.46 mill/uL (4.70-6.10); White Blood Cell (WBC) Count 9.4 thou/uL (4.8-10.8)
[2020-04-13 17:56] LABS: Anion Gap 22 mmol/L (10-20); BUN (Urea Nitrogen) 56 mg/dL (8.9-20.6); Calc. Creatinine Clearance 0 mL/min (70-130); Calcium 8.9 mg/dL (7.8-10.44); Carbon Dioxide 25 mmol/L (22-29); Chloride 92 mmol/L (98-107); Estimated GFR-MDRD 3; Glucose 117 mg/dL (70-105); Potassium 3.2 mmol/L (3.5-5.1); Sodium 136 mmol/L (136-145)
[2020-04-14 13:13] LABS: SARS-CoV-2 MS2 Positive; SARS-CoV-2 N Gene Negative; SARS-CoV-2 S Gene Negative; SARS-CoV-2 orf1ab Negative
== END 2020-04-13 08:24 | disposition home or self-care (01) ==
LOC: LABBT 08:23
PROVIDERS: ATTEND Surgery
DX: Z01.812 Encounter for preprocedural laboratory examination (principal); Z11.59 Encounter for screening for other viral diseases; N18.6 End stage renal disease
CPT/HCPCS: 80048; 85027; 87635; U0003

== ENCOUNTER 2020-04-21 15:14 | Inpatient (IN) | payer BC ==
[~2020-04-21 15:14] MED LIST: Iopamidol-370 76% 500 ML 1 ML ONE
[2020-04-21 16:05] LABS: Hemoglobin 13.3 g/dL (14.0-18.0); Mean Corpuscular HGB CONC 34.6 g/dL (32.0-36.0); Mean Corpuscular Hemoglobin 34.9 pg (27.0-31.0); Mean Platelet Volume 7.8 fL (7.4-10.4); Platelet Count 259 thou/uL (130-400); RBC Distribution Width 13.7 % (11.5-14.5); Red Blood Cell (RBC) Count 3.83 mill/uL (4.70-6.10); White Blood Cell (WBC) Count 14.1 thou/uL (4.8-10.8)
--- NOTE | 2020-04-21 16:11 | RAD ---
EXAM: CHEST ONE VIEW HISTORY: Dyspnea. Vomiting. COMPARISON: 12/20/2019 FINDINGS: Right-sided hemodialysis catheter had been removed. Cardiac silhouette and pulmonary vasculature are magnified by portable technique of study. Minimal linear densities are seen in each lung base suggesting mild atelectasis. Lungs are otherwise clear without consolidation or pleural fluid. Vascul ar calcifications are seen in the thoracic aorta. No other interval change. IMPRESSION: No acute cardiopulmonary process.
[2020-04-21 16:18] LABS: Band 11 % (5-11); Lymphocytes 6 % (21-51); MDiff Complete? YES; Monocytes 3 % (0-10); Neutrophil 80 % (42-75); Platelet Morphology Comment Appears Adequate; RBC Morphology Normal
[2020-04-21 16:34] LABS: ALT (SGPT) Less than 7 U/L (8-55); AST (SGOT) 51 U/L (5-34); Albumin 3.3 g/dL (3.5-5.0); Alkaline Phosphatase 81 U/L (40-110); Anion Gap 27 mmol/L (10-20); BUN (Urea Nitrogen) 79 mg/dL (8.9-20.6); Bilirubin, Total 0.6 mg/dL (0.2-1.2); Calc. Creatinine Clearance 0 mL/min (70-130); Carbon Dioxide 20 mmol/L (22-29); Chloride 90 mmol/L (98-107); Estimated GFR-MDRD 2; Glucose 129 mg/dL (70-105); Potassium 3.7 mmol/L (3.5-5.1); Protein, Total 6.3 g/dL (6.0-8.3); Sodium 133 mmol/L (136-145)
[2020-04-21 16:50] LABS: CKMB 9.1 ng/mL (0-6.6)
--- NOTE | 2020-04-21 17:54 | CT ---
CT ABDOMEN AND PELVIS WITH IV CONTRAST 04/21/2020 CLINICAL INFORMATION: Diffuse abdominal pain. Nausea and vomiting. COMPARISON: Noncontrast CT abdomen and pelvis on 11/08/2016. Technique: Multiple contiguous axial CT images are obtained through the abdomen and pelvis with IV contrast. Cor onal reformatted images are provided. FINDINGS: Lower Chest: Remote posterior right rib fractures are seen. Minimal dependent atelectasis is present at the right lung base. Vessels: Minimal vascular calcifications are seen in the abdominal aorta. Abdomen: Portal vein:Patent Gallbladder: Within normal limits for CT imaging. Liver: Mildly enlarged in craniocaudal dimensions measuring 18.5 cm. Liver otherwise demonstrates a n ormal CT appearance. Spleen: within normal limits. Pancreas: within normal limits. Adrenals: within normal limits. Kidneys: Innumerable subcentimeter hypodense lesions are seen throughout the kidneys bilaterally whic h are too small to further characterize. A larger 11 mm hypodense lesion is seen in the inferior pole left kidney which does demonstrate fluid attenuation. Cortically based calcification is seen inv olving the medial aspect superior pole right kidney. There is no hydronephrosis present. Few punctate nonobstructing bilateral renal calculi are seen. Kidneys are generally small in size. Bowel: Scattered colonic diverticula are seen in the sigmoid and descending colon. Appendix: The appendix is visualized and normal in caliber. Peritoneum: Small amount of intraperitoneal free fluid is seen within the abdomen and pelvis. However , this is likely secondary to peritoneal dialysis. Peritoneal dialysis catheter is seen entering the left lower quadrant and coiled within the pelvis. No fluid collection is seen. Mesentery and Retroperitoneum: No enlarged mesenteric or retroperitoneal lymph nodes. Abdominal Wall: There is subcutaneous gas and stranding adjacent to the peritoneal dialysis catheter within the left lower quadrant. No fluid collection is seen in this region. Pelvis: Reproductive Organs: No pelvic masses. Pelvis within normal limits. Bladder: Decompressed. Bones: Left total hip prosthesis present. Bilateral pars defects are seen at L5 with trace anterolist hesis of L5 on S1. IMPRESSION: 1. No acute findings. 2. Small amount of ascites likely related to peritoneal dialysis. Peritoneal dialysis catheter seen e ntering via the left lower quadrant. There is subcutaneous gas and mild stranding along the course of the peritoneal dialysis catheter in the subcutaneous soft tissues. 3. Mild enlargement of the liver in craniocaudal dimensions, but the liver otherwise demonstrates a n ormal CT appearance. 4. Small size of the bilateral kidneys with innumerable subcentimeter too small to characterize hypod ense lesions in each kidney. 5. Scattered punctate nonobstructing bilateral renal calculi. 6. Colonic diverticulosis. 7. Spondylolisthesis lumbosacral junction.
[2020-04-21] MEDS ORDERED: Morphine 4 MG/ML VIAL ONE (18:18)
[2020-04-21] MEDS ORDERED: Ondansetron PF 4 MG/2 ML Vial ONE (18:27)
[2020-04-21] MEDS ORDERED: MEROPENEM 1 GM/50 ML BAG IVPB SCH (18:30)
[2020-04-21 19:25] LABS: HBSAg Index 0.21 S/CO (0-0.99); Hep B Surf Ag Non-Reactive S/CO (NonReactive)
[2020-04-21] MEDS ORDERED: Dextrose 50% Abboject 50 ML SYRINGE SLOW IVP PRN (20:47)
[2020-04-21] MEDS ORDERED: Dextrose 5% in Water 1,000 ML IV PRN (20:47)
[2020-04-21] MEDS ORDERED: hydrALAZINE 20 MG/ML VIAL SLOW IVP PRN (20:50)
--- NOTE | 2020-04-21 22:30 | CON ---
DATE OF CONSULTATION: 04/21/2020 SERVICE: Nephrology. REASON FOR CONSULTATION: End-stage renal disease management. REQUESTING PHYSICIAN: Dr. Pal Mcdonnell. HISTORY OF PRESENT ILLNESS: A 45-year-old male with end-stage renal disease, on dialysis, admitted due to intractable nausea and vomiting. The patient reported that earlier this morning, he developed acute onset of nausea and vomiting. He had several episodes of nausea and vomiting reportedly, more than 20 times. He said that he was unable to keep anything down. He denied cough, shortness of breath, fever, hematemesis, swelling, or abdominal pain. In the ER, the patient was found to have some abdominal tenderness and further evaluation with CT scan, however, was unremarkable. Of note, the patient had peritoneal dialysis exit site infection with Pseudomonas, for which he is on antibiotics and subsequently had reciting of the PD catheter recently. The patient was supposed to transition to hemodialysis, but had access problem, hence hemodialysis could not be started as planned yesterday. PAST MEDICAL HISTORY: 1. Hypertension. 2. Hyperlipidemia. 3. Diabetes mellitus. 4. End-stage renal disease. 5. Prior peritoneal catheter associated infection. PAST SURGICAL HISTORY: 1. Right bimalleolar ankle fracture repair. 2. Left total hip arthroplasty. 3. PD catheter placement. 4. Left arm wrist recent AV fistula creation. FAMILY HISTORY: Reviewed and noncontributory. No history of end-stage renal disease in relatives or premature cardiac disease. SOCIAL HISTORY: The patient lives alone. Smokes about 3 cigarettes daily. 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 ALLERGIES: NO KNOWN DRUG ALLERGIES REPORTED. HOME MEDICATIONS: 1. Sevelamer 800 mg t.i.d. 2. Hydralazine 25 mg p.o. b.i.d. 3. Carvedilol 25 mg p.o. b.i.d. 4. Pravastatin 40 mg p.o. daily. 5. Amlodipine 10 mg p.o. daily. 6. Fenofibrate 160 mg p.o. daily. 7. Promethazine 12.5 mg every 4 hours p.r.n. 8. Buspirone 5 mg p.o. b.i.d. REVIEW OF SYSTEMS: 12-point review of systems performed, was negative other than pertinent positives and negatives included in the history of present illness. PHYSICAL EXAMINATION: VITAL SIGNS: Most current vitals showed BP 129/88, pulse 85, respiratory rate 16, SpO2 of 95% on room air, temperature 99.3. Initial vitals on presentation showed BP 137/86, pulse 98, respiratory rate 19, temperature 100.2, SpO2 of 95% on 3 L nasal cannula. GENERAL: Male patient, in no distress. Afebrile. Anicteric. Acyanotic. HEENT: Normocephalic, atraumatic. Oral mucosa is moist. NECK: Supple with no JVD. CARDIOVASCULAR: Regular rhythm and rate with normal heart sounds 1 and 2. RESPIRATORY: Fair air entry bilaterally with few bibasilar crackles posteriorly. GASTROINTESTINAL: Full, soft with mild diffuse tenderness. PD catheter noted. EXTREMITIES: Grossly normal looking, atraumatic with no edema or erythema. Left wrist AV fistula noted on the dorsum aspect of the arm. Good thrill felt. CENTRAL NERVOUS SYSTEM: Conscious, alert, oriented x3 with appropriate mental status. Cranial nerves 2 through 12 are grossly intact. DIAGNOSTIC DATA: CBC showed WBC count of 14.1, hemoglobin of 13.3, MCV of 101. Chemistry: Sodium 133, potassium 3.7, chloride 90, CO2 of 20, BUN 79, creatinine 22.1, glucose 129, calcium 8.0, total bilirubin 0.6, AST 51, ALT 7, alkaline phosphatase 81, total protein 6.3, albumin 3.3. Initial cardiac markers showed CK-MB 9.1, troponin 0.07. BNP 327. Initial troponin was 1.1 and 1.6. Chest x-ray showed no acute cardiopulmonary process. Minimal linear densities also were seen in each lung base suggesting mild atelectasis. CT scan of the abdomen and pelvis with contrast showed no acute findings. Small amount of ascites likely related to peritoneal dialysis noted. Peritoneal dialysis catheter seen entering the left lower quadrant with some subcutaneous gas and mild stranding along the course of the peritoneal dialysis catheter in the subcutaneous tissue. Mild enlargement of the liver in cranial caudal dimension, but liver otherwise demonstrates normal CT appearance. Colonic diverticulosis and scattered punctate nonobstructing bilateral renal stones and small size of multiple bilateral kidney subcentimeter to small hypodense lesions noted. ASSESSMENT: 1. Presumed uremia. The patient has not had dialysis for about 6 days. 2. Intractable nausea and vomiting, thought to be due to uremia. 3. End-stage renal disease, on dialysis. The patient is currently being transitioned over to hemodialysis due to peritoneal dialysis AV site infection requiring reciting of the PD catheter. 4. Hypertension. Control is acceptable. 5. PD catheter exit site Pseudomonas infection. 6. Hyperlipidemia. PLAN: 1. We will dialyze the patient today utilizing the left arm AV fistula. 2. We will start antiemetics as needed for nausea and vomiting. 3. Further treatment to follow depending on hospital course. Job ID: [id number]
[2020-04-21] MEDS: Heparin 5,000 UNITS/ML VIAL SC SCH (23:37)
[2020-04-21] MEDS: Piperacillin/Tazobactam 2.25 GM in Sodium Chloride 0.9% 100 ML IVPB SCH (23:38)
--- NOTE | 2020-04-22 01:52 | CON ---
DATE OF CONSULTATION: 04/21/2020 SERVICE: Nephrology. REASON FOR CONSULTATION: End-stage renal disease management. REQUESTING PHYSICIAN: Dr. Pal Mcdonnell. CHIEF COMPLAINT: Intractable nausea and vomiting. HISTORY OF PRESENT ILLNESS: 45-year-old male with known history of end-stage renal disease, on peritoneal dialysis; hypertension; diabetes; who presented to the ED with intractable nausea and vomiting as well as abdominal pain and ill feeling. The patient on PD had recently developed Pseudomonas exit site infection necessitating recent surgery and reciting of the PD catheter. The patient was transitioned to hemodialysis to allow for healing. He was supposed to have hemodialysis starting from yesterday, April 20, 2020, but had AV fistula infiltration, hence could not have treatments. The patient denied fever, cough, shortness of breath, hematemesis, hematochezia, or swelling. The patient was also found to have abdominal tenderness on presentation to the ED and subsequently had CT scan of the abdomen. There was a concern for peritonitis and the patient was given meropenem. Evaluation showed a creatinine of 22, hence patient is being admitted for further evaluation and treatment. PAST MEDICAL HISTORY: 1. Hypertension. 2. Hyperlipidemia. 3. Diabetes mellitus. 4. End-stage renal disease, on peritoneal dialysis. 5. Prior peritonitis and PD catheter associated infection. PAST SURGICAL HISTORY: 1. Left wrist AV fistula creation. 2. PD catheter placement. 3. PD catheter removal. 4. Right bimalleolar ankle fracture repair. FAMILY HISTORY: Reviewed and noncontributory. No history of end-stage renal disease in parents or premature coronary artery disease. SOCIAL HISTORY: The patient lives alone. 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 He smokes about 3 cigarettes daily. Denied recreational drug use. ALLERGIES: NO KNOWN DRUG ALLERGIES REPORTED. CURRENT MEDICATIONS: 1. Renvela 800 mg t.i.d. 2. Hydralazine 25 mg b.i.d. 3. Carvedilol 25 mg p.o. b.i.d. 4. Pravastatin 40 mg daily. 5. Amlodipine 10 mg p.o. daily. 6. Fenofibrate 160 mg p.o. daily. 7. Ciprofloxacin 500 mg daily. 8. Promethazine 12.5 mg every 4 hours p.r.n. 9. Buspirone 5 mg p.o. b.i.d. REVIEW OF SYSTEMS: 10-point review of systems performed was negative other than pertinent positives and negatives included in the history of present illness. PHYSICAL EXAMINATION: VITAL SIGNS: Initial vitals on presentation to the ER showed BP 137/86, pulse 98, respiratory rate 19, temperature 100.2, SpO2 of 95. Current vitals showed BP 129/88, pulse 85, respiratory rate 16, temperature 99.3, SpO2 at 96% on room air. GENERAL: Male patient, in no obvious distress. The patient appears older than stated age. Afebrile, anicteric, acyanotic. HEENT: Normocephalic, atraumatic. Oral mucosa is moist. NECK: Supple with no obvious JVD. CARDIOVASCULAR: Regular rhythm and rate with normal. heart sounds one and two. RESPIRATORY: Fair air entry bilaterally with few bibasilar crackles posteriorly. No respiratory distress or use of accessory muscles appreciated. GASTROINTESTINAL: Full, soft with mild diffuse tenderness. Left lower quadrant PD catheter noted. EXTREMITIES: Grossly normal looking, atraumatic with no obvious edema or erythema. Left wrist area AV fistula with good thrill noted. [employer]PARATUS ENGINEERING TECHNOLOGIST: Conscious and alert, oriented x3 with appropriate mental stressors. Cranial nerves 2 through 12 are grossly intact. DIAGNOSTIC DATA: CBC showed WBC count of 14.1, hemoglobin of 13.3, MCV of 101, platelet of 259. CMP showed sodium 133, potassium 3.7, chloride 90, CO2 of 20, BUN 79, creatinine 22, glucose 129, calcium 8.0, total bilirubin 0.6, AST 51, ALT less than 7, alkaline phosphatase 81, total protein 6.3, albumin 3.3, globulin 3.0. Initial cardiac markers showed CK-MB 9.1, troponin 0.070 and BNP 327. Initial lactic acid is 1.6. Chest x-ray showed minimum linear densities in each lung base suggestive of mild atelectasis, but no consolidation or pleural effusion. CT scan of the abdomen and pelvis with IV contrast showed a patent portal vein. Gallbladder within normal limits. Mildly enlarged liver measuring 18.5 cm. Adrenal within normal limits. Innumerable subcentimeter hypodense lesions seen throughout the kidneys bilaterally which are too small for further characterization. A few punctate nonobstructing bilateral renal calculi were also noted. Scattered colonic diverticula are seen in the sigmoid and descending colon. Small amount of intraperitoneal fluid is seen within the abdomen and pelvis. The patient dialysis catheter also is seen entering the left lower quadrant and coiled within the pelvis. No fluid collection is seen. There is subcutaneous gas and stranding adjacent to the peritoneal dialysis catheter within the left lower quadrant with no fluid collection in the area. Impression is read as no acute finding. ASSESSMENT: 1. Intractable nausea and vomiting: This is concerning for uremia. The patient has not had any dialysis for about 6 days. 2. Presumed uremia. 3. End-stage renal disease, on dialysis. The patient was on PD, but had to be stopped due to Pseudomonas exit site infection that required reciting of PD catheter. The patient was supposed to have hemodialysis, but due to access problem, this could not happen. 4. Hypertension, control is acceptable. 5. Volume status: Acceptable. 6. Electrolytes: Potassium is acceptable. The patient had mild hyponatremia. 7. Peritoneal dialysis exit site infection with Pseudomonas. PLAN: We will dialyze the patient today for 3 hours via the patent and functional AV fistula on the left upper limb. I agree with empirical antibiotics. However, I doubt if this patient has any peritonitis. Antibiotics is purely for exit wound infection. We will continue other medications. Antiemetic for nausea and vomiting will be provided. Continue phosphate binders. We will reassess the patient in the morning and if stable and tolerating food, can be discharged to continue outpatient dialysis. Further treatment to follow depending on hospital course. Job ID: [id number]
--- NOTE | 2020-04-22 02:24 | HP ---
REASON FOR ADMISSION: Nausea and vomiting. HISTORY OF PRESENT ILLNESS: This is a 45-year-old male patient, who is known to have end-stage renal disease and usually undergoes peritoneal dialysis, and he does have an AV fistula, but there were some issues accessing the fistula. The patient did miss his dialysis session on Thursday. He comes today reporting nausea, vomiting, and abdominal discomfort, described as cramping in nature, localized mainly in the periumbilical area. Denies any fever, but he was noted to have a temperature of 100.2. Nephrology was notified and the patient is currently undergoing dialysis. He appears to be comfortable, in no acute distress. I did review his records and it seems that he had insertion of hemodialysis catheter in December 2019 and creation of an AV fistula on that month as well. In the past, he had multiple revisions of his peritoneal catheter. It was noted that he had leaking around the catheter and in December, there was an anticipation to transition to hemodialysis since he did have problems with leaking around his catheter. He was noted to have a fistula on the left, which failed to develop, but he has a suitable vein on the dorsum of the forearm. PAST MEDICAL HISTORY: 1. Diabetes. 2. High blood pressure. 3. End-stage renal disease. 4. High cholesterol. PAST SURGICAL HISTORY: 1. ORIF of an ankle fracture. 2. Hip replacement. 3. Peritoneal dialysis catheter placement. 4. Fistula surgery. SOCIAL HISTORY: The patient used to drink a lot, but currently not drinking. He is a smoker. FAMILY HISTORY: Reviewed, found to be noncontributory. REVIEW OF SYSTEMS: All systems reviewed except the above mentioned, found to be negative. PHYSICAL EXAMINATION: GENERAL: He is awake, alert, and oriented, does not appear in distress. VITAL SIGNS: His blood pressure is 137/87, his pulse is 80, saturating 100% on room air, and temperature 100.2. HEENT: Head is nontraumatic and normocephalic. Pupils are equal and reactive. Extraocular movements are intact. Nonicteric sclerae. Well injected conjunctivae. Oral mucosa normal. Nasal mucosa normal. NECK: Supple. No adenopathy. No murmur. Thyroid is not palpable. Trachea is midline. No supraclavicular adenopathy. HEART: S1 and S2. Regular. No murmur. No gallops. No friction rubs. No displaced PMI. LUNGS: Clear to auscultation bilaterally. No wheezes, rhonchi. No crackles. ABDOMEN: Bowel sounds are positive. Abdomen slightly tender, but overall soft. Examination of the skin around the point of entry of his peritoneal catheter appears to be clean. No discharge. EXTREMITIES: No lower extremity edema. No cyanosis noted. NEUROLOGIC: Cranial nerves 2 through 12 within normal limits. Normal motor function. Normal sensory function. Normal reflexes. LABORATORY DATA: Blood work shows WBC of 14.8, hemoglobin 13.3, platelets of 259, neutrophil count 80%. Sodium 133, potassium of 3.7, BUN of 79, and creatinine 22.14. Previous creatinine 15.25 on April 12. CK-MB 9.1, troponin 0.07. BNP 327.6. COVID-19, nonreactive. His CT scan of the abdomen showed no acute findings, small amount of ascites, likely related to peritoneal dialysis. Peritoneal dialysis catheter seen entering via the left lower quadrant, subcutaneous gas and mild stranding along the course of the peritoneal dialysis catheter in the subcutaneous soft tissues. Chest x-ray shows no acute process. ASSESSMENT AND PLAN: This is a 45-year-old male patient, who is presenting with abdominal pain, fever, nausea and vomiting, possibly due to spontaneous bacterial peritonitis. Also, he missed his hemodialysis session. Currently, he is receiving hemodialysis through his AV fistula and appears to be doing well. ID: The patient has suspected spontaneous bacterial peritonitis in the setting of abdominal pain and fever. We are in the process of obtaining a peritoneal fluid and sent for a CBC, differential, Gram stain and culture, also LDH, amylase, and protein as well as albumin levels. Until we get the results, we will cover him with IV Zosyn. He did receive IV meropenem in the ER, I did review previous culture of his wound and fluids in September 2019, it was positive for Pseudomonas, multi-sensitive to meropenem and Zosyn, so we will cover him with Zosyn for now. We will ask ID to see him. Renal system, electrolytes: The patient is undergoing hemodialysis. Nephrology is aware of him. We will recheck his labs in the morning. For deep venous thrombosis prophylaxis, he will be on heparin subcutaneously. Cardiac: The patient does have an indeterminate troponin. I believe it is due to his end-stage renal disease. We will recheck another troponin in the morning. In regard to his diabetes, we will have him on insulin sliding scale. I am awaiting his med rec to be done, so I could reconcile his medications. I did discuss with him his code status and he wishes to be a full code. Job ID: [id number]
[2020-04-22 04:25] LABS: #Lymphocytes 0.9 thou/uL (1.20-3.40); #Monocytes 1.2 thou/uL (0.11-0.59); #Neutrophils 14.3 thou/uL (1.40-6.50); %Basophils 0.1 % (0.0-1.0); %Eosinophils 0.1 % (0.0-10.0); %Lymphocytes 5.5 % (21.0-51.0); %Neutrophils 87.2 % (42.0-75.0); Hemoglobin 12.7 g/dL (14.0-18.0); Mean Corpuscular HGB CONC 32.9 g/dL (32.0-36.0); Mean Corpuscular Hemoglobin 33.3 pg (27.0-31.0); Mean Platelet Volume 8.2 fL (7.4-10.4); Platelet Count 212 thou/uL (130-400); RBC Distribution Width 13.8 % (11.5-14.5); White Blood Cell (WBC) Count 16.4 thou/uL (4.8-10.8)
[2020-04-22 04:41] LABS: Anion Gap 17 mmol/L (10-20); BUN (Urea Nitrogen) 41 mg/dL (8.9-20.6); Calc. Creatinine Clearance 6 mL/min (70-130); Calcium 8.3 mg/dL (7.8-10.44); Carbon Dioxide 26 mmol/L (22-29); Chloride 91 mmol/L (98-107); Estimated GFR-MDRD 4; Glucose 84 mg/dL (70-105); Sodium 130 mmol/L (136-145)
[2020-04-22 09:12] LABS: RBC Count-Automated (BF) 230824 /cu.mm; WBC/Nucleated-Auto (BF) 24207 uL
[2020-04-22 09:15] LABS: BF Color Brown; Body Fluid Source Ascites Body Fluid; Clarity Cloudy/Turbid (Clear)
[2020-04-22] MEDS: hydrALAZINE 25 MG TAB PO SCH ×2 (09:37→17:13)
[2020-04-22] MEDS: Carvedilol 25 MG TAB PO SCH ×2 (09:37→20:25)
[2020-04-22] MEDS: busPIRone HCl 5 MG TAB PO SCH ×2 (09:37→20:25)
[2020-04-22] MEDS: Piperacillin/Tazobactam 2.25 GM in Sodium Chloride 0.9% 100 ML IVPB SCH ×3 (09:37→22:49)
[2020-04-22] MEDS: Fenofibrate Nanocrystallized 145 MG TAB PO SCH (09:38)
[2020-04-22] MEDS: Cyanocobalamin (Vitamin B-12) 1,000 MCG TAB PO SCH (09:38)
[2020-04-22] MEDS: Sevelamer Carbonate 800 MG TAB PO SCH ×3 (09:39→20:25)
[2020-04-22] MEDS: Heparin 5,000 UNITS/ML VIAL SC SCH ×3 (09:39→20:23)
[2020-04-22 09:52] LABS: BF Segmented Neutrophils 87 %; Cell Count Non Hematic 4 %; Lymphocytes 9 %
--- NOTE | 2020-04-22 11:37 | PRG ---
DATE OF SERVICE: 04/22/2020 SERVICE: Nephrology. SUBJECTIVE: A 45-year-old male patient with end-stage renal disease on dialysis, admitted due to intractable nausea and vomiting after missing dialysis for several days. Feeling better after hemodialysis last night. Nausea and vomiting have subsided. Tolerated oral intake. Denied fever, chills, or edema. OBJECTIVE: VITAL SIGNS: Temperature 99.6, pulse 83, respiratory rate 16, SpO2 of 94% on room air, blood pressure is 134/77. GENERAL: Comfortable male patient in no distress. Afebrile. Anicteric. Acyanotic. HEENT: Normocephalic, atraumatic. Oral mucosa is moist. CARDIOVASCULAR: Regular rhythm and rate with normal heart sounds 1 and 2. RESPIRATORY: Good air entry bilaterally with no crackle or rhonchi or use of accessory muscles. GI: Full, soft, nondistended. Mild diffuse tenderness noted. Left lower quadrant PD catheter noted. EXTREMITIES: Grossly normal looking atraumatic with no edema or erythema. Left forearm AV fistula noted. GRANULATOR TENDER: Conscious, alert, oriented x3 with appropriate mental status. Cranial nerves 2 through 12 are grossly intact. DIAGNOSTIC DATA: CBC showed WBC count of 16.4, hemoglobin of 12.7, platelets of 212. Chemistry showed sodium 130, potassium 4.0, chloride 91, CO2 of 26, BUN 41, creatinine 14.79, glucose 84, calcium 8.3. ASSESSMENT: 1. End-stage renal disease. Had hemodialysis yesterday. The patient was transitioned to hemodialysis to allow for resolution of PD catheter exit site Pseudomonas infection. 2. PD site Pseudomonas infection. The patient had exchange of catheter recently. 3. Hyponatremia: Due to excess free water intake and poor urinary excretion of free water. 4. Hypertension: Control is acceptable. 5. Possible peritonitis: Given the leukocytosis and mild abdominal pain. PLAN: 1. We will continue hemodialysis on Thursday, Thursday, Thursday with next treatment scheduled for 2 more. 2. We will also continue broad-spectrum antibiotics. We will, however, defer to primary attending for stress of antibiotics. We will hopefully get the prior culture result with susceptibility to help determine choice of antibiotics. 3. We will also get culture of the peritoneal fluid. 4. Continue other treatments. Further treatment to follow depending on hospital course. Job ID: [id number]
[2020-04-22 12:13] LABS: CKMB 2.8 ng/mL (0-6.6)
--- NOTE | 2020-04-22 12:32 | PDOC.HOSPP ---
- Subjective Encounter Date: 04/22/20 Encounter Time: 09:00 Subjective: no overnight events. this morning, no change. abdominal pain and tenderness persists. otherwise no complaints. - Objective Vital Signs & Weight: Vital Signs (12 hours) Temp Pulse Resp BP BP Pulse Ox 04/22/20 11:34 99.5 F 77 19 120/74 95 04/22/20 09:37 83 134/77 04/22/20 09:35 99.6 F 83 16 134/77 94 L 04/22/20 08:00 94 L Weight Weight 159 lb 4.8 oz I&O: 04/21/20 04/22/20 04/23/20 06:59 06:59 06:59 Intake Total 300 Output Total 1999 Balance -1700 Result Diagrams: 04/22/20 04:08 04/22/20 04:08 Additional Labs: Accuchecks 04/22/20 04/22/20 04/21/20 11:10 06:06 23:16 POC Glucose 79 93 86 Hospitalist ROS - Review of Systems Constitutional: denies: fever, chills, sweats Cardiovascular: denies: chest pain, palpitations Gastrointestinal: reports: abdominal pain. denies: nausea, vomiting, diarrhea, constipation, melena, hematochezia - Medication Medications: Active Medications Generic Name Dose Route Start Last Admin Trade Name Bhavinq PRN Reason Stop Dose Admin Buspirone HCl 5 mg 04/22/20 09:00 04/22/20 09:37 Buspar PO 5 mg BID PAT Administration Carvedilol 25 mg 04/22/20 09:00 04/22/20 09:37 Coreg PO 25 mg BID PAT Administration Cyanocobalamin 2,000 mcg 04/22/20 09:00 04/22/20 09:38 Vitamin B-12 PO 2,000 mcg DAILY PAT Administration Fenofibrate 145 mg 04/22/20 09:00 04/22/20 09:38 Tricor PO 145 mg DAILY PAT Administration Heparin Sodium (Porcine) 5,000 units 04/21/20 21:00 04/22/20 09:39 Heparin SC 5,000 units TID PAT Administration Hydralazine HCl 25 mg 04/22/20 08:00 04/22/20 09:37 Apresoline PO 25 mg BID- PAT Administration Piperacillin Sod/Tazobactam 100 mls @ 200 mls/hr 04/21/20 22:00 04/22/20 09: 37 Sod 2.25 gm/ Sodium Chloride IVPB 100 mls Q8HR PAT Administration Sevelamer Carbonate 3,200 mg 04/22/20 09:00 04/22/20 09:39 Renvela PO 3,200 mg TID PAT Administration - Exam General Appearance: NAD, awake alert Eye: PERRL Neck: no JVD Heart: RRR, no murmur, no gallops, no rubs Respiratory: CTAB, no wheezes, no rales, no ronchi Gastrointestinal - other findings: diffusely tender with guarding; normal bowel sounds Psychiatric: normal affect, normal behavior, A&O x 3 Hosp A/P - Plan #SBP -pending studies; ID onboard, continue zosyn based on previous culture susceptibilities, if febrile, will add vancomycin; ABx may be more beneficial if administered intraperitoneally, defer to ID no indication for albumin since patient already has renal failure; -at this point, no Ix to remove catheter; defer to nephro/ID -preliminary asicitic gram stain showing many WBCs -CT abdomen remarkable for diverticulosis; no free air; unlikely secondary peritonitis #troponinemia -elevated CKMB; may be demand ischemia in context of infection -repeat trop, EKG #macrocytic anemia likely related to liver disease
[2020-04-22] MEDS: Amlodipine 10 MG TAB PO SCH (20:24)
[2020-04-22] MEDS: Atorvastatin Calcium 10 MG TAB PO SCH (20:24)
--- NOTE | 2020-04-22 20:34 | CON ---
DATE OF CONSULTATION: REASON FOR CONSULTATION: CAPD associated peritonitis. HISTORY OF PRESENT ILLNESS: A 45-year-old with history of type 2 diabetes, hypertension, and end-stage renal disease on peritoneal dialysis for more than 4 years. At the end of last year, he developed infection of the exit site of the CAPD catheter and recently Dr. Navarro replaced the catheter exit site or the cuff. There is one procedure in February 2019, which was a chronic infection, extrusion of external cuff of peritoneal dialysis catheter. The operative note was reviewed. Dissection carried down to the catheter tubing, which was dissected free and no fluid around the tubing or evidence of infection noted. The internal portion was connected to a peritoneal dialysis extended cath. This was then tunneled laterally to the original exit site with the subcutaneous position just proximal to the exit site. The external portion of the catheter was tied off and allowed to retract into the subcutaneous tissues. The tract was then ligated. The wound was irrigated and then on December 16, 2019, the patient underwent replacement of the catheter. A transverse skin incision was made. Fascia elevated under laparoscopic vision. No evidence of injury was noted. No significant adhesions to the peritoneal catheter were noted. On December 21, 2019, the patient had another procedure because of leakage around the recent catheter revision site. Also a tunneled hemodialysis catheter was placed in the left AV fistula. Now, the patient presents with abdominal pain, nausea, vomiting, and persistence of drainage. Apparently, the procedure was done in Dr. Navarro's office, it is not clear, which procedure was done, it was replacement of the cuff again or what. Attempted use of the AV fistula was made, but it was not successful. No headaches. No visual symptoms other than his usual retinopathy symptoms. No sore throat, odynophagia, or dysphagia. No cough or sputum production. No chest pain. He is still with abdominal pain, but not as much as before. No more vomiting. Does not have much urine output. No joint symptoms. No skin disorder outside the area of involvement. PAST MEDICAL HISTORY: Type 2 diabetes, hypertension, end-stage renal disease on peritoneal dialysis for the most of the past 4 years without many complications other than the more recent ones since 2018. He has had a tunneled dialysis catheter placement and AV fistula placement. SOCIAL HISTORY: Drinks daily more than 10 drinks per day. Smokes daily with the friend or his brother I guess. ALLERGIES: NONE. FAMILY HISTORY: Type 2 diabetes. CURRENT MEDICATIONS: 1. Norvasc. 2. Lipitor. 3. Buspar. 4. Coreg. 5. TriCor. 6. Apresoline. 7. Insulin. 8. Zosyn. 9. Renvela. PHYSICAL EXAMINATION: VITAL SIGNS: T-max 99.6, blood pressure 120/74, pulse 77, respirations 19, and O2 saturation 95. SKIN: Shows the CAPD catheter site exit in left lower quadrant. No tenderness or induration. The patient has had the right tunneled catheter removed. His AV fistula in left upper extremity was not yet ready to be used. HEENT: Ocular movements conjugate, pterygium. Oral cavity not remarkable. NECK: Supple. LUNGS: Symmetric clear breath sounds. HEART: S1 and S2. Regular rate. No S3 or S4. ABDOMEN: Soft, very mild tenderness, certainly improved from previous symptoms. No distention. No ascites. : No genital abnormalities. EXTREMITIES: No joint inflammatory activity. No edema. Pulses are 1+ in dorsalis pedis. Plantar responses are flexor. Moves all extremities equally. NEUROLOGIC: He is awake and oriented, follows commands. LABORATORY DATA: White cell count is 14,000, it is up to 16.4 at the moment. Platelets 254 and 212 and 87% neutrophils. Chemistry was as expected for his renal disease. Liver profile, AST was 51 and other elements normal. CK 9.1, troponin 0.070, and BNP 327. Albumin 3.3. The peritoneal dialysis fluid with 24,000 wbc's with predominance of mature neutrophils. Protein 3.5. COVID PCR was not detected on April 12. Abdomen and pelvis CT, small amount of ascites, mild enlargement of liver that is basically he had. Microbiology, we have Pseudomonas aeruginosa with broad susceptibility profile from October 06. This is from the abdominal wall, I assume from the catheter exit site and current cultures are yet preliminary findings with no growth thus far including the CAPD fluid. ASSESSMENT: Type 2 diabetes, hypertension, end-stage renal disease on continuous ambulatory peritoneal dialysis treatment for the past four years, now with problems with the exit site having had replacement x2. One time was a revision of the exit site and then, the second time was a total replacement. Knows he is having leakage and this problem has not yet been repaired I believe. Apparently, Dr. Navarro did a procedure just a few days ago, it was not clear, which procedure was it. Anyway so, now he has evidence of continuous ambulatory peritoneal dialysis peritonitis again. DISCUSSION: The usual pathogens include Pseudomonas aeruginosa, but more likely a gram-positive organisms such as coagulase-negative Staphylococcus or Staphylococcus aureus and so on. Escherichia coli is a possibility as well. He was on meropenem and now he is on Zosyn and I would add vancomycin to his regimen until we have final results of the cultures. The future course of his clinical problem will determine if he is going to need removal of the peritoneal dialysis catheter or not. For example, if there is prompt resolution of symptoms, the organisms are easily treatable, then we could pursue conservative management. Otherwise, he would probably require removal of the catheter and transition to hemodialysis. If Pseudomonas is confirmed, eventually could transition to oral quinolone for discharge planning and treat for about 3 weeks. If another organisms, then regimen will be adjusted accordingly. Job ID: [id number]
[2020-04-23 04:31] LABS: #Eosinphils 0.1 thou/uL (0.0-0.7); #Lymphocytes 0.8 thou/uL (1.20-3.40); #Monocytes 0.9 thou/uL (0.11-0.59); #Neutrophils 9.7 thou/uL (1.40-6.50); %Basophils 0.2 % (0.0-1.0); %Eosinophils 0.7 % (0.0-10.0); %Lymphocytes 6.6 % (21.0-51.0); %Neutrophils 84.5 % (42.0-75.0); Hemoglobin 11.2 g/dL (14.0-18.0); Mean Corpuscular HGB CONC 33.9 g/dL (32.0-36.0); Mean Corpuscular Hemoglobin 34.9 pg (27.0-31.0); Mean Platelet Volume 7.9 fL (7.4-10.4); Platelet Count 199 thou/uL (130-400); RBC Distribution Width 13.6 % (11.5-14.5); Red Blood Cell (RBC) Count 3.21 mill/uL (4.70-6.10); White Blood Cell (WBC) Count 11.5 thou/uL (4.8-10.8)
[2020-04-23 04:59] LABS: Troponin I 0.085 ng/mL (< 0.028)
[2020-04-23 05:00] LABS: Anion Gap 20 mmol/L (10-20); BUN (Urea Nitrogen) 60 mg/dL (8.9-20.6); Calc. Creatinine Clearance 5 mL/min (70-130); Calcium 8.3 mg/dL (7.8-10.44); Carbon Dioxide 25 mmol/L (22-29); Chloride 87 mmol/L (98-107); Estimated GFR-MDRD 3; Glucose 61 mg/dL (70-105); Magnesium 2.4 mg/dL (1.6-2.6); Potassium 4.1 mmol/L (3.5-5.1); Sodium 128 mmol/L (136-145)
[2020-04-23] MEDS: Piperacillin/Tazobactam 2.25 GM in Sodium Chloride 0.9% 100 ML IVPB SCH ×3 (05:31→20:32)
[2020-04-23] MEDS ORDERED: Vancomycin 1 GM in Premix Bag 1 BAG IVPB SCH ×2 (08:00→08:15)
[2020-04-23] MEDS ORDERED: HOLD VANCOMYCIN FOR LEVEL >20 FS SCH (08:15)
[2020-04-23] MEDS ORDERED: Vancomycin HCl 1.25 GM in Sodium Chloride 0.9% 250 ML 250 ML IVPB SCH (08:15)
[2020-04-23] MEDS ORDERED: Vancomycin HCl 1.75 GM in Sodium Chloride 0.9% 500 ML IVPB SCH (08:15)
[2020-04-23] MEDS ORDERED: Vancomycin HCl 750 MG in Sodium Chloride 0.9% 250 ML 250 ML IVPB SCH (08:15)
[2020-04-23] MEDS ORDERED: Vancomycin HCl 500 MG in Sodium Chloride 0.9% 100 ML IVPB SCH (08:15)
[2020-04-23] MEDS ORDERED: Vancomycin Sliding Scale 1 EACH FS SCH (08:15)
[2020-04-23] MEDS: Fenofibrate Nanocrystallized 145 MG TAB PO SCH (12:28)
[2020-04-23] MEDS: Heparin 5,000 UNITS/ML VIAL SC SCH ×3 (12:28→20:13)
[2020-04-23] MEDS: Carvedilol 25 MG TAB PO SCH ×2 (12:29→20:08)
[2020-04-23] MEDS: busPIRone HCl 5 MG TAB PO SCH ×2 (12:29→20:08)
[2020-04-23] MEDS: hydrALAZINE 25 MG TAB PO SCH ×2 (12:29→17:00)
[2020-04-23] MEDS: Cyanocobalamin (Vitamin B-12) 1,000 MCG TAB PO SCH (12:29)
[2020-04-23] MEDS: Sevelamer Carbonate 800 MG TAB PO SCH ×3 (12:29→20:09)
--- NOTE | 2020-04-23 16:16 | PDOC.HOSPP ---
- Subjective Encounter Date: 04/23/20 Encounter Time: 09:00 Subjective: No overnight events. Remains afebrile. Has no complaints - Objective Vital Signs & Weight: Vital Signs (12 hours) Temp Pulse Resp BP BP Pulse Ox 04/23/20 11:36 99.4 F 70 16 131/73 95 04/23/20 08:00 98.5 F 71 13 128/75 93 L 04/23/20 05:12 98.3 F 81 16 123/77 96 Weight Weight 159 lb 4.8 oz I&O: 04/22/20 04/23/20 04/24/20 06:59 06:59 06:59 Intake Total 952 757 2721 Output Total 2000 0 Balance -9635 668 4605 Result Diagrams: 04/23/20 04:18 04/23/20 04:18 Additional Labs: Accuchecks 04/23/20 04/23/20 04/23/20 10:27 06:23 05:27 POC Glucose 82 105 59 L* 04/22/20 04/22/20 20:32 16:46 POC Glucose 93 122 H Hospitalist ROS - Review of Systems Constitutional: denies: fever, chills, sweats Respiratory: denies: cough, dry, shortness of breath, hemoptysis Cardiovascular: denies: chest pain, palpitations, orthopnea, paroxysmal noc. dyspnea Gastrointestinal: denies: nausea, vomiting, abdominal pain, diarrhea, constipation - Medication Medications: Active Medications Generic Name Dose Route Start Last Admin Trade Name Freq PRN Reason Stop Dose Admin Amlodipine Besylate 10 mg 04/22/20 21:00 04/22/20 20:24 Norvasc PO 10 mg HS PAT Administration Atorvastatin Calcium 10 mg 04/22/20 21:00 04/22/20 20:24 Lipitor PO 10 mg HS PAT Administration Buspirone HCl 5 mg 04/22/20 09:00 04/23/20 12:29 Buspar PO 5 mg BID PAT Administration Carvedilol 25 mg 04/22/20 09:00 04/23/20 12:29 Coreg PO 25 mg BID PAT Administration Cyanocobalamin 2,000 mcg 04/22/20 09:00 04/23/20 12:29 Vitamin B-12 PO 2,000 mcg DAILY PAT Administration Fenofibrate 145 mg 04/22/20 09:00 04/23/20 12:28 Tricor PO 145 mg DAILY PAT Administration Heparin Sodium (Porcine) 5,000 units 04/21/20 21:00 04/23/20 12:28 Heparin SC 5,000 units TID PAT Administration Hydralazine HCl 25 mg 04/22/20 08:00 04/23/20 12:29 Apresoline PO 25 mg BID-WM PAT Administration Piperacillin Sod/Tazobactam 100 mls @ 200 mls/hr 04/21/20 22:00 04/23/20 05: 31 Sod 2.25 gm/ Sodium Chloride IVPB 100 mls Q8HR PAT Administration Sevelamer Carbonate 3,200 mg 04/22/20 09:00 04/23/20 12:29 Renvela PO 3,200 mg TID PAT Administration Sodium Chloride 10 ml 04/23/20 09:00 04/23/20 12:29 Flush - Normal Saline IVF 10 ml Q12HR PAT Administration - Exam General Appearance: NAD, awake alert Neck: no JVD Heart: RRR, no murmur, no gallops, no rubs Respiratory: CTAB, no wheezes, no rales, no ronchi Gastrointestinal: soft, non-distended, normal bowel sounds Gastrointestinal - other findings: mild diffuse tenderness Psychiatric: normal affect, normal behavior, A&O x 3 Hosp A/P - Plan #peritoneal-dialysis induced peritonitis -peritoneal culture growing pseudomonas; on vanc and zosyn pending finalization of culture; ID onboard appreciated recs -at this point, no Ix to remove catheter; nephro onboard appreciated recs #troponinemia -elevated CKMB; likely demand ischemia in context of infection/hypervolemia; no further workup or treatment #macrocytic anemia likely related to liver disease
--- NOTE | 2020-04-23 18:16 | PRG ---
DATE OF SERVICE: 04/23/2020 SUBJECTIVE: Feeling better. Less abdominal pain. Being dialyzed. Dialysis worked through the AV fistula. OBJECTIVE: VITAL SIGNS: He is afebrile, BP 130/70, pulse 76, respirations 18, and O2 saturation 95. GENERAL: Appears in no distress. LUNGS: Clear. HEART: S1 and S2. Regular rate. ABDOMEN: Flat, soft, not distended. LABORATORY DATA: White cell count down to 11.5, hemoglobin 11, and platelets 199. Cultures from the fluid with presumptive Pseudomonas. ASSESSMENT AND DISCUSSION: 1. Type 2 diabetes. 2. Hypertension. 3. End-stage renal disease, on continuous ambulatory peritoneal dialysis with infection secondary to Pseudomonas aeruginosa. This organism will likely be susceptible to quinolones and so we will be able to discharge on oral quinolone adjusted for renal function, treat him for 3 weeks. Looks like we will be able to salvage the catheter for the time being. Discontinue vancomycin. Job ID: [id number]
[2020-04-23] MEDS: Atorvastatin Calcium 10 MG TAB PO SCH (20:08)
[2020-04-23] MEDS: Amlodipine 10 MG TAB PO SCH (20:08)
[2020-04-24] MEDS: Piperacillin/Tazobactam 2.25 GM in Sodium Chloride 0.9% 100 ML IVPB SCH ×3 (05:16→21:08)
--- NOTE | 2020-04-24 07:37 | PRG ---
DATE OF SERVICE: 04/23/2020 SUBJECTIVE: The patient was seen and examined today, claimed to be feeling better. OBJECTIVE: VITAL SIGNS: Afebrile, temperature 99.4, pulse 70, respiratory rate of 16, O2 saturation of 95%, blood pressure 131/73. HEENT: Unremarkable. CARDIOVASCULAR SYSTEM: First and second heart sounds were heard. RESPIRATORY SYSTEM: Clear to auscultation. DIGESTIVE SYSTEM: Revealed a benign abdomen on palpation with positive bowel sounds. EXTREMITIES: No peripheral edema. SKIN: No new gross rash. LYMPHATICS: No peripheral lymphadenopathy. LABORATORY INVESTIGATION: Showed a white count going down to 11.5, hemoglobin 11.2. Chemistry showed a creatinine of 17.47, sodium of 128, BUN of 60. IMPRESSION: 1. End-stage renal disease, admitted with uremic symptomatologies, doing better. 2. Peritonitis in the context of Pseudomonas infection, status post recent change of the peritoneal dialysis catheter. 3. Recurrent catheter infection. PLAN: 1. The patient is to continue with hemodialysis for now. 2. We will be following the recommendation from Infectious Disease specialist. The patient depending on the sensitivity of the antibiotics may benefit from quinolones long time. 3. Further management will be dependent on the clinical course as well as further recommendations from the Infectious Disease specialist. If the infection cannot be eradicated, this might warrant removal of the peritoneal dialysis catheter entirely. Job ID: [id number]
[2020-04-24] MEDS: Fenofibrate Nanocrystallized 145 MG TAB PO SCH (07:42)
[2020-04-24] MEDS: busPIRone HCl 5 MG TAB PO SCH ×2 (07:42→21:06)
[2020-04-24] MEDS: hydrALAZINE 25 MG TAB PO SCH ×2 (07:42→17:08)
[2020-04-24] MEDS: Heparin 5,000 UNITS/ML VIAL SC SCH ×3 (07:42→21:09)
[2020-04-24] MEDS: Cyanocobalamin (Vitamin B-12) 1,000 MCG TAB PO SCH (07:42)
[2020-04-24] MEDS: Carvedilol 25 MG TAB PO SCH ×2 (07:43→21:06)
[2020-04-24] MEDS: Sevelamer Carbonate 800 MG TAB PO SCH ×3 (07:43→17:08)
--- NOTE | 2020-04-24 19:57 | PDOC.HOSPP ---
- Subjective Encounter Date: 04/24/20 Encounter Time: 08:00 Subjective: No overnight events. Susceptibilites back, not susceptibile to fluoroquinolones. No indication for catheter replacement. Pending discharge - Objective Vital Signs & Weight: Vital Signs (12 hours) Temp Pulse Resp BP Pulse Ox 04/24/20 19:13 98.0 F 58 L 18 121/71 98 04/24/20 17:08 73 04/24/20 08:00 94 L Weight Weight 136 lb 4 oz I&O: 04/23/20 04/24/20 04/25/20 06:59 06:59 06:59 Intake Total 680 1560 1280 Output Total 0 0 Balance 680 1560 1280 Result Diagrams: 04/23/20 04:18 04/23/20 04:18 Additional Labs: Accuchecks 04/24/20 04/24/20 04/24/20 19:21 16:36 11:18 POC Glucose 127 H 125 H 106 04/24/20 04/23/20 04:21 20:12 POC Glucose 112 H 143 H Hospitalist ROS - Review of Systems Constitutional: denies: fever, chills, sweats, weakness, malaise, other Respiratory: denies: cough, dry, shortness of breath, hemoptysis, SOB with excertion, pleuritic pain, sputum, wheezing, other Cardiovascular: denies: chest pain, palpitations, orthopnea, paroxysmal noc. dyspnea, edema, light headedness, other Gastrointestinal: denies: nausea, vomiting, abdominal pain, diarrhea, constipation, melena, hematochezia, other - Medication Medications: Active Medications Generic Name Dose Route Start Last Admin Trade Name Carlo PRN Reason Stop Dose Admin Amlodipine Besylate 10 mg 04/22/20 21:00 04/23/20 20:08 Norvasc PO 10 mg HS PAT Administration Atorvastatin Calcium 10 mg 04/22/20 21:00 04/23/20 20:08 Lipitor PO 10 mg HS PAT Administration Buspirone HCl 5 mg 04/22/20 09:00 04/24/20 07:42 Buspar PO 5 mg BID PAT Administration Carvedilol 25 mg 04/22/20 09:00 04/24/20 07:43 Coreg PO 25 mg BID PAT Administration Cyanocobalamin 2,000 mcg 04/22/20 09:00 04/24/20 07:42 Vitamin B-12 PO 2,000 mcg DAILY PAT Administration Fenofibrate 145 mg 04/22/20 09:00 04/24/20 07:42 Tricor PO 145 mg DAILY PAT Administration Heparin Sodium (Porcine) 5,000 units 04/21/20 21:00 04/24/20 15:00 Heparin SC 5,000 units TID PAT Administration Hydralazine HCl 25 mg 04/22/20 08:00 04/24/20 17:08 Apresoline PO 25 mg BID-WM PAT Administration Piperacillin Sod/Tazobactam 100 mls @ 200 mls/hr 04/21/20 22:00 04/24/20 14: 59 Sod 2.25 gm/ Sodium Chloride IVPB 100 mls Q8HR PAT Administration Sevelamer Carbonate 3,200 mg 04/24/20 17:00 04/24/20 17:08 Renvela PO 3,200 mg 0800,1200,1700 PAT Administration Sodium Chloride 10 ml 04/23/20 09:00 04/24/20 07:43 Flush - Normal Saline IVF 10 ml Q12HR PAT Administration - Exam General Appearance: NAD, awake alert Heart: RRR, no murmur, no gallops, no rubs Respiratory: CTAB, no wheezes, no rales, no ronchi Gastrointestinal: soft, non-tender, non-distended Psychiatric: normal affect, normal behavior, A&O x 3 Hosp A/P - Plan #peritoneal-dialysis induced peritonitis -peritoneal culture growing pseudomonas;on zosyn per ID; not susceptible to fluoroquinolones; considering negative blood culture and prompt patient response , intraperitoneal administration may be preferred, possibly of once daily ceftazidime; defer to ID -at this point, no Ix to remove catheter; defer to nephro/ID #troponinemia -elevated CKMB; likely demand ischemia in context of infection/hypervolemia; no further workup or treatment #macrocytic anemia likely related to liver disease Pending discharge on 04/25
[2020-04-24] MEDS: Amlodipine 10 MG TAB PO SCH (21:03)
[2020-04-24] MEDS: Atorvastatin Calcium 10 MG TAB PO SCH (21:06)
[2020-04-25] MEDS: Ondansetron PF 4 MG/2 ML Vial IVP PRN ×2 (04:39→20:13)
[2020-04-25] MEDS: Piperacillin/Tazobactam 2.25 GM in Sodium Chloride 0.9% 100 ML IVPB SCH ×3 (05:10→22:17)
--- NOTE | 2020-04-25 07:02 | PRG ---
DATE OF SERVICE: 04/24/2020 SUBJECTIVE: The patient is seen and examined, seems to be feeling better, noted with the following vital signs. OBJECTIVE: VITAL SIGNS: Afebrile, temperature 98.8, pulse 73, respiratory rate 22, blood pressure 144/87. HEENT: Unremarkable. CARDIOVASCULAR: First and second heart sounds were heard. RESPIRATORY: Clear to auscultation. DIGESTIVE: Revealed some areas of vague tenderness. Otherwise positive bowel sounds. EXTREMITIES: No peripheral edema. SKIN: No new gross rash. IMPRESSION: 1. End-stage renal disease, on peritoneal dialysis, but currently being dialyzed through the hemodialysis modality. 2. Pseudomonas aeruginosa peritonitis. PLAN: 1. The patient is currently on hemodialysis. 2. According to the Infectious Disease specialist, he feels this catheter could be salvaged with a prolonged antibiotic treatment. However, unfortunately going by the sensitivity result, it seems this patient's Pseudomonas is resistant to quinolones. We will await the recommendation from the Infectious Disease specialist, given the susceptibility results. In any case, if this infection is not amenable to significant outpatient treatment, would recommend removal of this dialysis catheter. I will await the decision of the Infectious Disease specialist. Job ID: [id number]
[2020-04-25] MEDS: busPIRone HCl 5 MG TAB PO SCH ×3 (08:20→20:14)
[2020-04-25] MEDS: Carvedilol 25 MG TAB PO SCH (08:20)
[2020-04-25] MEDS: hydrALAZINE 25 MG TAB PO SCH (08:20)
[2020-04-25] MEDS: Sevelamer Carbonate 800 MG TAB PO SCH ×3 (08:20→17:35)
[2020-04-25] MEDS: Heparin 5,000 UNITS/ML VIAL SC SCH ×3 (08:20→20:13)
[2020-04-25] MEDS: Cyanocobalamin (Vitamin B-12) 1,000 MCG TAB PO SCH (12:46)
[2020-04-25] MEDS: Fenofibrate Nanocrystallized 145 MG TAB PO SCH (12:46)
[2020-04-25] MEDS ORDERED: Carvedilol 25 MG TAB PO SCH (12:47)
[2020-04-25] MEDS ORDERED: Carvedilol 6.25 MG TAB PO SCH (13:00)
--- NOTE | 2020-04-25 17:12 | PRG ---
DATE OF SERVICE: 04/25/2020 SUBJECTIVE: Mr. Spann is feeling okay. He was scheduled for removal of PD catheter, but it has been canceled at the moment. He denies any headaches. No shortness of breath. No back pain. OBJECTIVE: VITAL SIGNS: Normal except for some elevation in systolic blood pressure. His O2 saturations are 97% on room air. GENERAL: Appears in no distress. LUNGS: Clear. HEART: S1 and S2. Regular rate. ABDOMEN: Soft, not distended. LABORATORY DATA: His white cell count is 11.5, hemoglobin 11, platelets 199. Chemistry not remarkable. The Pseudomonas showed resistance to quinolones and susceptibility to cefepime, ceftazidime, Zosyn, meropenem. ASSESSMENT AND DISCUSSION: Type 2 diabetes, hypertension, and end-stage renal disease on CAPD with infection due to Pseudomonas aeruginosa. I discussed with Dr. Herring. Obviously, he has had recurring problems over the past few months. The Pseudomonas aeruginosa being recovered all the times, so I think overall it is likely that this will recur and probably the best advice now is to remove the PD catheter and place a Mueller catheter for administration of the remainder of the course of treatment of his peritonitis, probably with cefepime, adjusted for renal function once daily for another approximately 17 days. Job ID: [id number]
[2020-04-25] MEDS: Carvedilol 6.25 MG TAB PO SCH (20:13)
[2020-04-25] MEDS: Atorvastatin Calcium 10 MG TAB PO SCH (20:13)
[2020-04-25] MEDS: Amlodipine 10 MG TAB PO SCH (20:14)
--- NOTE | 2020-04-25 20:35 | PDOC.HOSPP ---
- Subjective Encounter Date: 04/25/20 Encounter Time: 09:00 Subjective: no overnight events. This morning, feels well and has no complaints. Discharge pending ID and nephro recs regarding antibiotics and catheter replacement - Objective Vital Signs & Weight: Vital Signs (12 hours) Temp Pulse Resp BP BP BP Pulse Ox 04/25/20 20:14 61 04/25/20 20:13 138/84 04/25/20 19:27 98.4 F 61 16 138/84 97 04/25/20 16:00 98.5 F 62 20 169/82 H 97 04/25/20 13:45 98.8 F 64 16 94 L 04/25/20 13:39 144/84 H Weight Weight 136 lb 4 oz I&O: 04/24/20 04/25/20 04/26/20 06:59 06:59 06:59 Intake Total 1560 1480 Output Total 0 Balance 1560 1480 Result Diagrams: 04/23/20 04:18 04/23/20 04:18 Additional Labs: Accuchecks 04/25/20 04/25/20 04/25/20 19:20 15:45 12:49 POC Glucose 102 107 111 H 04/25/20 04:39 POC Glucose 99 Hospitalist ROS - Review of Systems Constitutional: denies: fever, chills, sweats, weakness, malaise, other Cardiovascular: denies: chest pain, palpitations, orthopnea, paroxysmal noc. dyspnea, edema, light headedness, other Gastrointestinal: denies: nausea, vomiting, abdominal pain, diarrhea, constipation, melena, hematochezia, other Genitourinary: denies: dysuria, frequency, incontinence, hematuria, retention, other - Medication Medications: Active Medications Generic Name Dose Route Start Last Admin Trade Name Freq PRN Reason Stop Dose Admin Amlodipine Besylate 10 mg 04/22/20 21:00 04/25/20 20:14 Norvasc PO 10 mg HS PAT Administration Atorvastatin Calcium 10 mg 04/22/20 21:00 04/25/20 20:13 Lipitor PO 10 mg HS PAT Administration Buspirone HCl 5 mg 04/22/20 09:00 04/25/20 20:14 Buspar PO 5 mg BID PAT Administration Carvedilol 12.5 mg 04/25/20 21:00 04/25/20 20:13 Coreg PO 12.5 mg BID PAT Administration Cyanocobalamin 2,000 mcg 04/22/20 09:00 04/25/20 12:46 Vitamin B-12 PO 2,000 mcg DAILY PAT Administration Fenofibrate 145 mg 04/22/20 09:00 04/25/20 12:46 Tricor PO 145 mg DAILY PAT Administration Heparin Sodium (Porcine) 5,000 units 04/21/20 21:00 04/25/20 20:13 Heparin SC 5,000 units TID PAT Administration Piperacillin Sod/Tazobactam 100 mls @ 200 mls/hr 04/21/20 22:00 04/25/20 13: 38 Sod 2.25 gm/ Sodium Chloride IVPB 100 mls Q8HR PAT Administration Ondansetron HCl 4 mg 04/21/20 20:44 04/25/20 20:13 Zofran IVP 4 mg Q6H PRN Administration Nausea/Vomiting Sevelamer Carbonate 3,200 mg 04/24/20 17:00 04/25/20 17:35 Renvela PO 3,200 mg 0800,1200,1700 PAT Administration Sodium Chloride 10 ml 04/23/20 09:00 04/25/20 20:14 Flush - Normal Saline IVF 10 ml Q12HR PAT Administration - Exam General Appearance: NAD, awake alert Neck: no JVD Heart: RRR, no murmur, no gallops, no rubs Respiratory: CTAB, no wheezes, no rales, no ronchi Gastrointestinal: soft, non-tender, non-distended, normal bowel sounds Extremities: no edema Psychiatric: normal affect, normal behavior, A&O x 3 Hosp A/P - Plan #peritoneal-dialysis induced peritonitis -peritoneal culture growing pseudomonas;on zosyn per ID; not susceptible to fluoroquinolones; pending ID recs regarding DC ABx -per ID and nephro, planning to remove PD catheter and place juarez #troponinemia -elevated CKMB; likely demand ischemia in context of infection/hypervolemia; no further workup or treatment #macrocytic anemia likely related to liver disease ELOS: pending arrangement of ABx as outpatient
[2020-04-26] MEDS ORDERED: Promethazine HCl 12.5 MG in Sodium Chloride 0.9% 50 ML IVPB SCH (04:15)
[2020-04-26] MEDS: Piperacillin/Tazobactam 2.25 GM in Sodium Chloride 0.9% 100 ML IVPB SCH ×3 (05:24→21:04)
[2020-04-26 06:37] LABS: Anion Gap 15 mmol/L (10-20); BUN (Urea Nitrogen) 21 mg/dL (8.9-20.6); Calc. Creatinine Clearance 8 mL/min (70-130); Calcium 8.7 mg/dL (7.8-10.44); Carbon Dioxide 27 mmol/L (22-29); Chloride 92 mmol/L (98-107); Estimated GFR-MDRD 6; Glucose 87 mg/dL (70-105); Potassium 4.1 mmol/L (3.5-5.1); Sodium 130 mmol/L (136-145)
[2020-04-26] MEDS: Cyanocobalamin (Vitamin B-12) 1,000 MCG TAB PO SCH (08:52)
[2020-04-26] MEDS: Sevelamer Carbonate 800 MG TAB PO SCH ×3 (08:52→16:21)
[2020-04-26] MEDS: Heparin 5,000 UNITS/ML VIAL SC SCH ×3 (08:54→21:06)
[2020-04-26] MEDS ORDERED: Bupivacaine 0.25% HCL 30 ML VIAL ONE (10:20)
[2020-04-26] MEDS ORDERED: Lidocaine 1% w/Epinephrine 1:100K 20 ML VIAL ONE (10:20)
[2020-04-26] MEDS ORDERED: Sodium Chloride 0.9% 20 ML ONE (10:20)
[2020-04-26] MEDS: Carvedilol 6.25 MG TAB PO SCH ×2 (10:25→21:04)
[2020-04-26] MEDS: busPIRone HCl 5 MG TAB PO SCH ×2 (10:25→21:04)
[2020-04-26] MEDS ORDERED: Propofol 500 MG/50 ML VIAL ONE (10:31)
[2020-04-26] MEDS: Fenofibrate Nanocrystallized 145 MG TAB PO SCH (10:33)
--- NOTE | 2020-04-26 10:34 | PDOC.GSPN ---
Surgery Progress Note: Subj - Subjective Narrative: Patient did not get much sleep last night due to abdominal pain. His PD catheter exit site looks good but he is having significant abdominal tenderness diffusely consistent with peritonitis. Vital signs are stable and his exam is otherwise normal. His fistula is functioning well and he has been undergoing dialysis in the hospital without difficulty. I had initially seen the patient as an inpatient on Thursday and had placed him on the OR schedule for removal of peritoneal dialysis catheter yesterday, but Dr. Blackmon felt that the catheter was potentially salvageable with long-term antibiotics. However, Dr. dey and Dr. Blackmon have since conferred and decided that the catheter should be removed. The patient has had 3 episodes of peritonitis with the same organism and they feel that he is going to continue to have problems with this catheter. Dr. Blackmon has also requested a Mueller catheter for long-term antibiotics. The patient is agreeable to having the catheter removed as he is having a lot of discomfort from his infection and just wants to get better. We discussed the procedure of peritoneal dialysis catheter removal and Mueller catheter placement and the inherent risks of these procedures. These risks include but are not limited to bleeding, infection, risks of anesthesia, damage to nearby structures including bowel, hernia formation, need for other procedures, hemothorax, pneumothorax and DVT. The patient understands and accepts these risks and wishes to proceed. Surgery Progress Note: Obj - Vital signs Vital signs: Vital Signs - Most Recent Temp Pulse Resp BP Pulse Ox 99.7 F H 65 18 157/88 H 95 04/26/20 08:55 04/26/20 08:55 04/26/20 08:55 04/26/20 08:55 04/26/20 08:55 Surgery Progress Note: Results - Labs Result Diagrams: 04/23/20 04:18 04/26/20 05:25 Lab results: Laboratory Results - last 24 hr 04/26/20 04/26/20 04/26/20 04:37 05:25 07:20 Sodium 130 L Potassium 4.1 Chloride 92 L Carbon Dioxide 27 Anion Gap 15 BUN 21 H Creatinine 9.74 H Estimated GFR (MDRD) 6 Glucose 87 POC Glucose 104 Calcium 8.7 SARS-CoV-2 Rap RNA(RT-PCR) Not Detected
[2020-04-26] MEDS ORDERED: Ondansetron HCl/PF 4 MG/2 ML Vial IVP PRN (10:55)
[2020-04-26] MEDS ORDERED: Promethazine HCl 25 MG/ML VIAL SLOW IVP PRN (10:55)
[2020-04-26] MEDS ORDERED: Promethazine HCl 25 MG/ML VIAL IM PRN (10:55)
[2020-04-26] MEDS ORDERED: CEFAZOLIN 1 GM VIAL ONE (11:17)
[2020-04-26] MEDS ORDERED: Ondansetron PF 4 MG/2 ML Vial ONE (11:17)
[2020-04-26] MEDS ORDERED: Promethazine HCl 25 MG/ML VIAL ONE (12:30)
[2020-04-26] MEDS ORDERED: Fentanyl 100 MCG/2 ML VIAL ONE (12:47)
--- NOTE | 2020-04-26 12:56 | RAD ---
Portable frontal chest radiograph: 04/26/2020 COMPARISON: 12/20/2019 HISTORY: Evaluate chest following Mueller catheter placement FINDINGS: Right vascular catheter present with distal tip overlying the cavoatrial junction. No pneum othorax or pleural fluid. No focal consolidation or alveolar edema. Heart and mediastinal contours are grossly unremarkable. IMPRESSION: Right vascular catheter with no evidence for pneumothorax.
--- NOTE | 2020-04-26 17:37 | PRG ---
DATE OF SERVICE: 04/26/2020 SUBJECTIVE: The patient is seen and examined. Noted to be hemodynamically stable. OBJECTIVE: HEENT: Unremarkable. CARDIOVASCULAR SYSTEM: First and second heart sounds were heard. RESPIRATORY SYSTEM: Clear to auscultation. DIGESTIVE SYSTEM: Revealed a benign abdomen with positive bowel sounds. EXTREMITIES: No peripheral edema. SKIN: No new gross rash. LYMPHATICS: No peripheral lymphadenopathy. IMPRESSION: 1. End-stage renal disease, on hemodialysis. 2. Recurrent peritoneal dialysis catheter infection. 3. Peritonitis with Pseudomonas aeruginosa. PLAN: 1. The patient's peritoneal dialysis catheter to be removed today. 2. Mueller catheter to be placed for long-term antibiotics administration. 3. The patient for now to continue with hemodialysis until further noticed. Job ID: [id number]
--- NOTE | 2020-04-26 18:03 | PRG ---
DATE OF SERVICE: 04/25/2020 SUBJECTIVE: The patient was seen and examined, noted with the following vital signs. OBJECTIVE: VITAL SIGNS: Afebrile, temperature 98.4, blood pressure of 138/84, pulse 61, respiratory rate of 16, and O2 saturations of 97%. HEENT: Unremarkable. CARDIOVASCULAR SYSTEM: First and second heart sounds were heard. RESPIRATORY SYSTEM: Clear to auscultation. DIGESTIVE SYSTEM: Revealed vague tenderness with positive bowel sounds. EXTREMITIES: No peripheral edema. SKIN: No new gross rash. IMPRESSION: 1. End-stage renal disease, used to be on peritoneal dialysis, but now currently on hemodialysis. 2. Pseudomonas peritonitis. PLAN: 1. The patient is currently receiving hemodialysis. 2. Decision to be made regarding the patient's peritoneal dialysis catheter, given the sensitivity results of the antibiotics, sensitivity results of the culture of this patient's peritoneum. We are leaning more towards removal of this dialysis catheter as this might become a little bit challenging and difficult to eradicate with a catheter still in place. 3. We will discuss with Infectious Disease specialist as it relates to the definitive management of this recurrent catheter infection. Job ID: [id number]
[2020-04-26] MEDS: Ondansetron PF 4 MG/2 ML Vial IVP PRN (19:27)
[2020-04-26] MEDS: Morphine 2 MG/ML VIAL SLOW IVP PRN (19:27)
[2020-04-26] MEDS: Amlodipine 10 MG TAB PO SCH (21:04)
[2020-04-26] MEDS: Atorvastatin Calcium 10 MG TAB PO SCH (21:04)
--- NOTE | 2020-04-26 22:14 | PDOC.HOSPP ---
- Subjective Encounter Date: 04/26/20 Encounter Time: 09:00 Subjective: overnight, PD catheter removed, juarez placed. this morning, complains of worse nausea, vomiting, and diffuse abdominal pain. - Objective Vital Signs & Weight: Vital Signs (12 hours) Temp Pulse Resp BP BP Pulse Ox 04/26/20 21:04 95 136/93 H 04/26/20 19:29 98.1 F 95 16 136/93 H 97 04/26/20 16:00 98.1 F 78 18 157/83 H 95 Weight Weight 136 lb 4 oz I&O: 04/25/20 04/26/20 04/27/20 06:59 06:59 06:59 Intake Total 1480 Balance 1480 Result Diagrams: 04/23/20 04:18 04/26/20 05:25 Additional Labs: Accuchecks 04/26/20 04/26/20 04/26/20 19:22 16:45 04:37 POC Glucose 116 H 115 H 104 Hospitalist ROS - Review of Systems Constitutional: denies: fever, chills, sweats Respiratory: denies: cough, dry, shortness of breath, pleuritic pain Cardiovascular: denies: chest pain, palpitations Gastrointestinal: reports: nausea, vomiting, abdominal pain. denies: diarrhea, constipation - Medication Medications: Active Medications Generic Name Dose Route Start Last Admin Trade Name Freq PRN Reason Stop Dose Admin Amlodipine Besylate 10 mg 04/22/20 21:00 04/26/20 21:04 Norvasc PO 10 mg HS PAT Administration Atorvastatin Calcium 10 mg 04/22/20 21:00 04/26/20 21:04 Lipitor PO 10 mg HS PAT Administration Buspirone HCl 5 mg 04/22/20 09:00 04/26/20 21:04 Buspar PO 5 mg BID PAT Administration Carvedilol 12.5 mg 04/25/20 21:00 04/26/20 21:04 Coreg PO 12.5 mg BID PAT Administration Cyanocobalamin 2,000 mcg 04/22/20 09:00 04/26/20 08:52 Vitamin B-12 PO Not Given DAILY PAT Fenofibrate 145 mg 04/22/20 09:00 04/26/20 10:33 Tricor PO Not Given DAILY PAT Heparin Sodium (Porcine) 5,000 units 04/21/20 21:00 04/26/20 21:06 Heparin SC 5,000 units TID PAT Administration Piperacillin Sod/Tazobactam 100 mls @ 200 mls/hr 04/21/20 22:00 04/26/20 21: 04 Sod 2.25 gm/ Sodium Chloride IVPB 100 mls Q8HR PAT Administration Morphine Sulfate 2 mg 04/26/20 15:08 04/26/20 19:27 Morphine Sulfate SLOW IVP 2 mg Q4H PRN Administration Moderate Pain (4-6) Ondansetron HCl 4 mg 04/21/20 20:44 04/26/20 19:27 Zofran IVP 4 mg Q6H PRN Administration Nausea/Vomiting Sevelamer Carbonate 3,200 mg 04/24/20 17:00 04/26/20 16:21 Renvela PO 3,200 mg 0800,1200,1700 PAT Administration Sodium Chloride 10 ml 04/23/20 09:00 04/26/20 10:33 Flush - Normal Saline IVF 10 ml Q12HR PAT Administration - Exam General - other findings: mild distress due to abdominal pain Neck: no JVD Heart: RRR, no murmur, no gallops, no rubs Respiratory: CTAB, no wheezes, no rales, no ronchi Gastrointestinal: soft, non-distended, normal bowel sounds Gastrointestinal - other findings: diffusely tender Extremities: no edema Psychiatric: normal affect, normal behavior, A&O x 3 Hosp A/P - Plan #peritoneal-dialysis induced peritonitis -worse abdominal pain, nausea, vomiting (04/26) -PD catheter removed; juarez placed per ID, nephro -pending outpatient abx treatment #troponinemia -elevated CKMB; likely demand ischemia in context of infection/hypervolemia; no further workup or treatment #macrocytic anemia likely related to liver disease ELOS: pending arrangement of ABx as outpatient
--- NOTE | 2020-04-27 04:57 | PDOC.EVN ---
Event Note - Event Note Event Note: called by RN for low BP, will bolus with 500 cc NS and reassess, will draw labs potenstial transfer to ICU for pressors addendum at 6:00 am labs demonstrating high lactate , hyperkalemia and worsening acidosis. BP improved after fluids I plan to urgently contact nephrology , transfer to ICU, give bicarb, do a CT abdomen.
[2020-04-27] MEDS ORDERED: Sodium Chloride 0.9% 500 ML IV SCH (05:00)
[2020-04-27 05:22] LABS: #Eosinphils 0.1 thou/uL (0.0-0.7); #Lymphocytes 0.9 thou/uL (1.20-3.40); #Monocytes 1.4 thou/uL (0.11-0.59); #Neutrophils 17.2 thou/uL (1.40-6.50); %Basophils 0.1 % (0.0-1.0); %Eosinophils 0.3 % (0.0-10.0); %Lymphocytes 4.6 % (21.0-51.0); %Neutrophils 88.1 % (42.0-75.0); Hemoglobin 8.6 g/dL (14.0-18.0); Mean Corpuscular HGB CONC 31.9 g/dL (32.0-36.0); Mean Corpuscular Hemoglobin 33.6 pg (27.0-31.0); Mean Platelet Volume 9.5 fL (7.4-10.4); Platelet Count 262 thou/uL (130-400); RBC Distribution Width 13.1 % (11.5-14.5); Red Blood Cell (RBC) Count 2.54 mill/uL (4.70-6.10); White Blood Cell (WBC) Count 19.5 thou/uL (4.8-10.8)
[2020-04-27 05:44] LABS: Anion Gap 33 mmol/L (10-20); BUN (Urea Nitrogen) 35 mg/dL (8.9-20.6); Calc. Creatinine Clearance 7 mL/min (70-130); Calcium 8.8 mg/dL (7.8-10.44); Carbon Dioxide 14 mmol/L (22-29); Chloride 90 mmol/L (98-107); Estimated GFR-MDRD 5; Glucose 169 mg/dL (70-105); Potassium 6.6 mmol/L (3.5-5.1); Sodium 130 mmol/L (136-145)
[2020-04-27] MEDS ORDERED: Sodium Bicarb 50 MEQ/50 ML Abboject 8.4% SYRINGE IVP SCH (06:00)
[2020-04-27] MEDS ORDERED: Sodium Bicarbonate 150 MEQ in Dextrose 5% in Water 1,000 ML IV PRN (06:11)
[2020-04-27] MEDS ORDERED: Calcium Gluconate 9.2 MEQ in Sodium Chloride 0.9% 100 ML IVPB SCH (07:00)
[2020-04-27] MEDS ORDERED: Insulin Regular 300 UNITS/3 ML VIAL IVP SCH ×2 (07:00→09:31)
[2020-04-27] MEDS ORDERED: Dextrose 50% Abboject 50 ML SYRINGE SLOW IVP SCH (07:00)
--- NOTE | 2020-04-27 07:08 | PDOC.HOSPP ---
- Subjective Encounter Date: 04/27/20 Encounter Time: 06:45 Subjective: overnight, hypotensive, hypoglycemic, transferred to ICU and started on pressors. Lactic acid grossly elevated, hyperkalemic. this morning, feeling well and has no complaints. abdominal pain resolved. Telemetry showing high amplitude T-waves. started emergent medical treatment for hyperkalemia pending hemodialysis - Objective Vital Signs & Weight: Vital Signs (12 hours) Temp Pulse Resp BP BP Pulse Ox 04/27/20 05:15 93/60 04/27/20 04:42 86/57 L 04/27/20 04:00 77 16 98/63 100 04/27/20 00:00 97.3 F L 73 16 100/67 96 04/26/20 21:04 95 136/93 H 04/26/20 20:00 96 04/26/20 19:29 98.1 F 95 16 136/93 H 97 Weight Weight 136 lb 4 oz I&O: 04/26/20 04/27/20 04/28/20 06:59 06:59 06:59 Output Total 350 Balance -350 Result Diagrams: 04/27/20 05:08 04/27/20 05:08 Additional Labs: Accuchecks 04/27/20 04/27/20 04/26/20 04:35 01:57 19:22 POC Glucose 182 H 74 116 H 04/26/20 16:45 POC Glucose 115 H Hospitalist ROS - Review of Systems Constitutional: denies: fever, chills, sweats Respiratory: denies: cough, dry, shortness of breath Cardiovascular: denies: chest pain, palpitations, orthopnea Gastrointestinal: denies: nausea, vomiting, abdominal pain, diarrhea Genitourinary: denies: dysuria, frequency, incontinence - Medication Medications: Active Medications Generic Name Dose Route Start Last Admin Trade Name Freq PRN Reason Stop Dose Admin Atorvastatin Calcium 10 mg 04/22/20 21:00 04/26/20 21:04 Lipitor PO 10 mg HS PAT Administration Buspirone HCl 5 mg 04/22/20 09:00 04/26/20 21:04 Buspar PO 5 mg BID PAT Administration Cyanocobalamin 2,000 mcg 04/22/20 09:00 04/26/20 08:52 Vitamin B-12 PO Not Given DAILY PAT Dextrose/Water 25 gm 04/21/20 20:47 04/27/20 02:45 Dextrose 50% SLOW IVP 25 gm PRN PRN Administration Hypoglycemia Dextrose/Water 25 gm 04/27/20 07:00 04/27/20 06:55 Dextrose 50% SLOW IVP 04/27/20 09:00 25 gm NOW PAT Administration Fenofibrate 145 mg 04/22/20 09:00 04/26/20 10:33 Tricor PO Not Given DAILY PAT Glucagon 1 mg 04/21/20 20:47 04/27/20 02:20 Glucagon IM 1 mg PRN PRN Administration Hypoglycemia Heparin Sodium (Porcine) 5,000 units 04/21/20 21:00 04/26/20 21:06 Heparin SC 5,000 units TID PAT Administration Piperacillin Sod/Tazobactam 100 mls @ 200 mls/hr 04/21/20 22:00 04/26/20 21: 04 Sod 2.25 gm/ Sodium Chloride IVPB 100 mls Q8HR PAT Administration Insulin Human Regular 10 units 04/27/20 07:00 04/27/20 06:55 Humulin R IVP 04/27/20 09:00 10 unit NOW PAT Administration Morphine Sulfate 2 mg 04/26/20 15:08 04/26/20 19:27 Morphine Sulfate SLOW IVP 2 mg Q4H PRN Administration Moderate Pain (4-6) Ondansetron HCl 4 mg 04/21/20 20:44 04/26/20 19:27 Zofran IVP 4 mg Q6H PRN Administration Nausea/Vomiting Sevelamer Carbonate 3,200 mg 04/24/20 17:00 04/26/20 16:21 Renvela PO 3,200 mg 0800,1200,1700 PAT Administration Sodium Bicarbonate 50 meq 04/27/20 06:00 04/27/20 06:55 Bicarbonate, Sodium IVP 04/27/20 08:00 50 meq NOW PAT Administration Sodium Chloride 10 ml 04/23/20 09:00 04/26/20 10:33 Flush - Normal Saline IVF 10 ml Q12HR PAT Administration - Exam General Appearance: NAD, awake alert Neck: no JVD Neck - other findings: juarez in place, no signs of swelling or erythema at insertion site Heart: RRR, no murmur, no gallops, no rubs Respiratory: CTAB, no wheezes, no rales, no ronchi Gastrointestinal: soft, non-tender, non-distended, normal bowel sounds Extremities: no edema Psychiatric: normal affect, normal behavior, A&O x 3 Hosp A/P - Plan #peritoneal-dialysis induced peritonitis #sepsis -qSOFA 2/3 overnight -sepsis vs. cardiogenic shock vs. catheter induced complication (arrhythmia vs. embolism vs. pneumo/hemothorax) -added vancomycin to zosyn -match I/O -blood culture, CXR -repeat troponin; echo #troponinemia -elevated CKMB; likely demand ischemia in context of infection/hypervolemia -repeat trop, echo in context of hypotension #macrocytic anemia likely related to liver disease ELOS: 1
[2020-04-27] MEDS ORDERED: Vancomycin HCl 750 MG in Sodium Chloride 0.9% 250 ML 250 ML IVPB SCH (07:30)
[2020-04-27] MEDS ORDERED: HOLD VANCOMYCIN FOR LEVEL >20 FS SCH (07:30)
[2020-04-27] MEDS ORDERED: Vancomycin Sliding Scale 1 EACH FS ONE (07:30)
[2020-04-27] MEDS ORDERED: Vancomycin 1 GM in Premix Bag 1 BAG IVPB SCH (07:30)
[2020-04-27] MEDS ORDERED: Vancomycin HCl 250 MG in Sodium Chloride 0.9% 100 ML IVPB SCH (07:30)
[2020-04-27] MEDS ORDERED: Vancomycin HCl 500 MG in Sodium Chloride 0.9% 100 ML IVPB SCH (07:30)
[2020-04-27] MEDS: Norepinephrine 8 MG/0.9% NS 250 ML IVPB SCH ×2 (07:51→18:58)
[2020-04-27] MEDS: Piperacillin/Tazobactam 2.25 GM in Sodium Chloride 0.9% 100 ML IVPB SCH ×3 (07:51→21:29)
[2020-04-27 08:10] LABS: Anion Gap 30 mmol/L (10-20); BUN (Urea Nitrogen) 37 mg/dL (8.9-20.6); Calc. Creatinine Clearance 7 mL/min (70-130); Calcium 7.9 mg/dL (7.8-10.44); Carbon Dioxide 14 mmol/L (22-29); Chloride 91 mmol/L (98-107); Estimated GFR-MDRD 5; Glucose 274 mg/dL (70-105); Potassium 5.4 mmol/L (3.5-5.1); Sodium 130 mmol/L (136-145)
--- NOTE | 2020-04-27 08:33 | RAD ---
RADIOGRAPH CHEST 1 VIEW: DATE: 04/27/2020 HISTORY: 45-year-old male with dyspnea. COMPARISON: 04/26/2020 FINDINGS: There are no airspace densities, pulmonary edema, pneumothorax, or cardiomegaly. The lateral costophr enic angles are sharp. Right-sided central venous catheter with distal tip overlying SVC/right atrial junction. No interval change overall. IMPRESSION: No acute cardiopulmonary findings.
[2020-04-27 08:34] LABS: CKMB 3.2 ng/mL (0-6.6)
[2020-04-27 08:59] LABS: Lactic Acid 13.4 mmol/L (0.5-2.2)
[2020-04-27] MEDS ORDERED: Vancomycin 1.5 GRAM/300 ML BAG 1.5 GM in Premix Bag 1 BAG IVPB SCH (09:00)
[2020-04-27] MEDS: Sevelamer Carbonate 800 MG TAB PO SCH ×3 (09:03→17:50)
[2020-04-27] MEDS: Heparin 5,000 UNITS/ML VIAL SC SCH ×3 (09:13→20:40)
[2020-04-27] MEDS: Cyanocobalamin (Vitamin B-12) 1,000 MCG TAB PO SCH (09:13)
[2020-04-27] MEDS: busPIRone HCl 5 MG TAB PO SCH ×2 (09:13→20:39)
[2020-04-27] MEDS: Fenofibrate Nanocrystallized 145 MG TAB PO SCH (09:13)
[2020-04-27] MEDS: Ondansetron PF 4 MG/2 ML Vial IVP PRN ×2 (11:33→20:38)
[2020-04-27 12:24] LABS: #Eosinphils 0.1 thou/uL (0.0-0.7); #Lymphocytes 1.4 thou/uL (1.20-3.40); #Monocytes 0.4 thou/uL (0.11-0.59); #Neutrophils 8.1 thou/uL (1.40-6.50); %Basophils 0.2 % (0.0-1.0); %Eosinophils 0.5 % (0.0-10.0); %Lymphocytes 14.2 % (21.0-51.0); %Monocytes 3.8 % (0.0-10.0); %Neutrophils 81.2 % (42.0-75.0); Hemoglobin 7.2 g/dL (14.0-18.0); Mean Corpuscular HGB CONC 32.9 g/dL (32.0-36.0); Mean Corpuscular Hemoglobin 34.6 pg (27.0-31.0); Mean Platelet Volume 9.9 fL (7.4-10.4); Platelet Count 226 thou/uL (130-400); RBC Distribution Width 12.9 % (11.5-14.5); Red Blood Cell (RBC) Count 2.09 mill/uL (4.70-6.10)
[2020-04-27 12:42] LABS: Anion Gap 26 mmol/L (10-20); BUN (Urea Nitrogen) 37 mg/dL (8.9-20.6); Calc. Creatinine Clearance 8 mL/min (70-130); Calcium 8.7 mg/dL (7.8-10.44); Carbon Dioxide 18 mmol/L (22-29); Chloride 92 mmol/L (98-107); Estimated GFR-MDRD 5; Glucose 132 mg/dL (70-105); Potassium 5.4 mmol/L (3.5-5.1); Sodium 131 mmol/L (136-145)
[2020-04-27 12:49] LABS: Troponin I 0.118 ng/mL (< 0.028)
[2020-04-27 12:58] LABS: CKMB 6.7 ng/mL (0-6.6)
[2020-04-27 13:52] LABS: Lactic Acid 9.2 mmol/L (0.5-2.2)
--- NOTE | 2020-04-27 14:29 | CON ---
DATE OF CONSULTATION: 04/27/2020 CONSULTING PHYSICIAN: Hospitalist. REASON FOR CONSULTATION: Low blood pressure. HISTORY OF PRESENT ILLNESS: The patient is a 45-year-old male, who was originally hospitalized on 04/21/2020. He apparently has an infected peritoneal dialysis catheter that was removed yesterday. He is receiving hemodialysis through AV fistula in his left arm. He also has Mueller catheter that was placed in his right chest yesterday. He had to be placed on Levophed last night. He feels better this morning. He has a high potassium. He is supposed to have dialysis this morning. PAST MEDICAL HISTORY: 1. End-stage renal disease. 2. Diabetes mellitus. 3. Hypertension. 4. Hyperlipidemia. PAST SURGICAL HISTORY: 1. Ankle fracture surgery. 2. Hip replacement. 3. Peritoneal dialysis catheter placement. 4. Left arm AV fistula. 5. Mueller catheter placement. SOCIAL HISTORY: Former drinker. Does smoke. FAMILY MEDICAL HISTORY: Unremarkable. REVIEW OF SYSTEMS: Ten-point review of systems is otherwise negative. PHYSICAL EXAMINATION: VITAL SIGNS: Temperature 96.8, pulse 69, blood pressure 99/59, O2 saturation 100%, and respiratory rate 21. GENERAL: He is awake, alert, no distress. HEENT: Unremarkable. NECK: No adenopathy or JVD. LUNGS: Clear. CARDIAC: S1 and S2. Regular. ABDOMEN: Soft and nontender. EXTREMITIES: No clubbing, cyanosis, or edema. LABORATORY DATA: Sodium 130, potassium 5.4, chloride 91, CO2 of 14, BUN 37, creatinine 11.9, and glucose 274. White blood cell count 19.5, hematocrit 26.8, and platelet count 265. His micro cultures are growing out Pseudomonas from his peritoneal fluid. IMAGING DATA: X-ray shows no mass, effusion, or infiltrate. ASSESSMENT: 1. Sepsis from peritonitis. 2. Chronic renal failure with elevated potassium, BUN, and creatinine. PLAN: 1. Continue Levophed. 2. Continue antibiotics. 3. Needs dialysis. 4. We will be happy to follow with you. Job ID: [id number]
[2020-04-27] MEDS: Sodium Bicarbonate 150 MEQ in Dextrose 5% in Water 1,000 ML IV SCH (15:11)
--- NOTE | 2020-04-27 17:43 | PRG ---
DATE OF SERVICE: 04/27/2020 SUBJECTIVE: Mr. Lackey developed hypotension. He was given a bolus and transferred to the ICU for pressors. Dr. Martin has evaluated the patient. I think he is scheduled for removal of the PD catheter. He right now is in ICU A6 and he is on Levophed drip, that is the main reason he is still in the ICU. Not much pain. No dyspnea. He did have abdominal pain earlier. OBJECTIVE: VITAL SIGNS: T-max of 99.7, blood pressure 106/74, pulse 87, respirations 20, O2 saturation 100%. GENERAL: Awake and alert. LUNGS: Clear. HEART: S1 and S2, regular rate. ABDOMEN: Moderately tender. EXTREMITIES: He moves extremities equally. LABORATORY DATA: White cell count is down to 10,000, hemoglobin 7.2, platelets 226. Creatinine 10.46, sodium 131. Lactic acid 9.2. Repeat blood cultures were not submitted. Chest x-ray with no acute cardiopulmonary findings. Echocardiogram, EF 65% and valves without major abnormalities noted. He is currently receiving vancomycin, sliding scale, and Zosyn. ASSESSMENT AND DISCUSSION: Type 2 diabetes; hypertension; end-stage renal disease, on continuous ambulatory peritoneal dialysis previously, now has been switched over to hemodialysis through his left upper extremity arteriovenous fistula; peritoneal dialysis infection with Pseudomonas aeruginosa with peritonitis and now he has had hypotension associated with worsening pain in the abdominal area. The patient actually does not look particularly unwell at the moment, so whatever happened was somewhat transient. It looks like blood cultures are still cooking and we will have to adjust antimicrobial therapy accordingly, but he certainly will have to have the peritoneal dialysis catheter removed and an alternate intraabdominal inflammatory process, for example, bowel involvement, would be something to be concerned with since those complications sometimes develop in patients with continuous ambulatory peritoneal dialysis catheters. Job ID: [id number]
[2020-04-27 18:04] LABS: Hemoglobin 6.7 g/dL (14.0-18.0); Mean Corpuscular HGB CONC 33.9 g/dL (32.0-36.0); Mean Corpuscular Hemoglobin 34.9 pg (27.0-31.0); Platelet Count 256 thou/uL (130-400); RBC Distribution Width 13.2 % (11.5-14.5); Red Blood Cell (RBC) Count 1.92 mill/uL (4.70-6.10); White Blood Cell (WBC) Count 21.5 thou/uL (4.8-10.8)
--- NOTE | 2020-04-27 18:05 | PRG ---
DATE OF SERVICE: 04/27/2020 SUBJECTIVE: The patient seen and examined in ICU. Events that are related to the patient being transferred to the ICU noted. The patient is still labile in terms of hemodynamics now and dependent on pressors to maintain the blood pressure. SUBJECTIVE: HEENT: Otherwise, HEENT examination unremarkable. CARDIOVASCULAR SYSTEM: First and second heart sounds were heard. RESPIRATORY SYSTEM: Clear to auscultation. DIGESTIVE SYSTEM: Reveals some area of tenderness with positive bowel sounds. EXTREMITIES: No peripheral edema. SKIN: No new gross rash. NEURO: Revealed the patient cranial nerves II through XII grossly intact. LABORATORY INVESTIGATION: Showed a potassium of 6.6, sodium 130, bicarb of 14 with lactic acid of , creatinine 11.88, BUN of 35. IMPRESSION: 1. End-stage renal disease, on hemodialysis for now. 2. Pseudomonas peritonitis/sepsis, status post removal of the dialysis catheter yesterday. 3. Profound metabolic acidosis, lactic acidemia, query cause. 4. Hyperkalemia, likely related to the cellular shift of potassium with profound metabolic acidosis. PLAN: 1. The patient to be dialyzed today. 2. Start this patient on gentle IV fluid resuscitation with a bicarb-based infusion. 3. Monitor the hemodynamics closely. We will likely be able to come off the pressors, status post hemodialysis and IV fluid resuscitation. 4. Further management will be dependent on the clinical course. Meanwhile, we will continue with broad-spectrum antibiotics. Job ID: [id number]
[2020-04-27 18:15] LABS: Band 7 % (5-11); Lymphocytes 9 % (21-51); MDiff Complete? YES; Macrocytosis SLIGHT = 6-15 cells (100X) (0-5/hpf); Monocytes 2 % (0-10); Neutrophil 82 % (42-75); Platelet Morphology Comment Appears Adequate; Polychromasia SLIGHT = 2-3 cells (100X) (0-2/hpf)
[2020-04-27 18:16] LABS: Anion Gap 22 mmol/L (10-20); BUN (Urea Nitrogen) 29 mg/dL (8.9-20.6); Calc. Creatinine Clearance 10 mL/min (70-130); Calcium 8.2 mg/dL (7.8-10.44); Carbon Dioxide 22 mmol/L (22-29); Chloride 92 mmol/L (98-107); Estimated GFR-MDRD 8; Glucose 131 mg/dL (70-105); Sodium 131 mmol/L (136-145)
[2020-04-27] MEDS: Atorvastatin Calcium 10 MG TAB PO SCH (20:39)
[2020-04-27] MEDS: HumaLOG 300 UNITS/3 ML VIAL SC PRN (20:47)
[2020-04-27] MEDS ORDERED: Promethazine HCl 12.5 MG in Sodium Chloride 0.9% 50 ML IVPB SCH (21:30)
[2020-04-28] MEDS: Sodium Bicarbonate 150 MEQ in Dextrose 5% in Water 1,000 ML IV SCH ×2 (02:02→18:41)
[2020-04-28] MEDS: Piperacillin/Tazobactam 2.25 GM in Sodium Chloride 0.9% 100 ML IVPB SCH ×3 (05:23→21:39)
[2020-04-28] MEDS: Ondansetron PF 4 MG/2 ML Vial IVP PRN ×2 (05:47→09:09)
[2020-04-28] MEDS: HumaLOG 300 UNITS/3 ML VIAL SC PRN (06:28)
--- NOTE | 2020-04-28 07:48 | PDOC.HOSPP ---
- Subjective Encounter Date: 04/28/20 Encounter Time: 07:00 Subjective: overnight, had dialysis during which was thrashing in bed, eyes rolled back, resolved with discontinuation of dialysis and giving fluids per nurse. blood glucose and electrolytes wnl at the time. this morning, laying comfortably in bed and has no complaints. - Objective Vital Signs & Weight: Vital Signs (12 hours) Temp Pulse Ox 04/28/20 04:00 98.5 F 04/28/20 00:00 98.5 F 04/27/20 20:00 98.0 F 04/27/20 19:59 98 Weight Weight 149 lb 0.52 oz Most Recent Monitor Data Heart Rate from ECG 79 NIBP 111/66 NIBP BP-Mean 81 Respiration from ECG 21 SpO2 100 I&O: 04/27/20 04/28/20 04/29/20 06:59 06:59 06:59 Intake Total 3338.4 Output Total 350 500 Balance -350 2838.4 Result Diagrams: 04/28/20 07:35 04/28/20 07:35 Additional Labs: Accuchecks 04/28/20 04/27/20 04/27/20 06:31 20:48 16:16 POC Glucose 157 H 204 H 127 H 04/27/20 04/27/20 04/27/20 12:12 11:01 07:44 POC Glucose 169 H 208 H 305 H 04/27/20 02:21 POC Glucose 65 L Hospitalist ROS - Review of Systems Constitutional: denies: fever, chills, sweats, weakness Respiratory: denies: cough, shortness of breath Cardiovascular: denies: chest pain, palpitations, orthopnea Gastrointestinal: denies: nausea, vomiting, abdominal pain - Medication Medications: Active Medications Generic Name Dose Route Start Last Admin Trade Name Freq PRN Reason Stop Dose Admin Atorvastatin Calcium 10 mg 04/22/20 21:00 04/27/20 20:39 Lipitor PO 10 mg HS PAT Administration Buspirone HCl 5 mg 04/22/20 09:00 04/27/20 20:39 Buspar PO 5 mg BID PAT Administration Cyanocobalamin 2,000 mcg 04/22/20 09:00 04/27/20 09:13 Vitamin B-12 PO 2,000 mcg DAILY PAT Administration Dextrose/Water 25 gm 04/21/20 20:47 04/27/20 02:45 Dextrose 50% SLOW IVP 25 gm PRN PRN Administration Hypoglycemia Fenofibrate 145 mg 04/22/20 09:00 04/27/20 09:13 Tricor PO 145 mg DAILY PAT Administration Glucagon 1 mg 04/21/20 20:47 04/27/20 02:20 Glucagon IM 1 mg PRN PRN Administration Hypoglycemia Heparin Sodium (Porcine) 5,000 units 04/21/20 21:00 04/27/20 20:40 Heparin SC 5,000 units TID PAT Administration Piperacillin Sod/Tazobactam 100 mls @ 200 mls/hr 04/21/20 22:00 04/28/20 05: 23 Sod 2.25 gm/ Sodium Chloride IVPB 100 mls Q8HR PAT Administration Norepinephrine Bitartrate 250 mls @ 0 mls/hr 04/27/20 06:15 04/27/20 18:58 Levophed IVPB 250 mls INF PAT Administration Protocol Titrate Sodium Bicarbonate 150 meq/ 1,150 mls @ 100 mls/hr 04/27/20 13:00 04/28/20 02 :02 Dextrose/Water IV 1,150 mls .[id number] APT Administration Insulin Human Lispro 0 units 04/21/20 20:47 04/28/20 06:28 Humalog SC 2 unit .MODERATE SLIDING SC PRN Administration Moderate Correctional Scale Morphine Sulfate 2 mg 04/26/20 15:08 04/26/20 19:27 Morphine Sulfate SLOW IVP 2 mg Q4H PRN Administration Moderate Pain (4-6) Ondansetron HCl 4 mg 04/21/20 20:44 04/28/20 05:47 Zofran IVP 4 mg Q6H PRN Administration Nausea/Vomiting Sevelamer Carbonate 3,200 mg 04/24/20 17:00 04/27/20 17:50 Renvela PO Not Given 0800,1200,1700 PAT Sodium Chloride 10 ml 04/23/20 09:00 04/27/20 20:40 Flush - Normal Saline IVF Not Given Q12HR PAT - Exam General Appearance: NAD, awake alert Eye: PERRL ENT: normocephalic atraumatic Neck: no JVD Heart: RRR, no murmur, no gallops, no rubs Heart - other findings: juarez right upper thorax, no signs of infection Respiratory: CTAB, no wheezes, no rales, no ronchi Gastrointestinal: soft, non-tender, non-distended, normal bowel sounds Psychiatric: normal affect, normal behavior, A&O x 3 Hosp A/P - Plan #peritoneal-dialysis induced peritonitis #sepsis -qsofa 0/3 -sepsis vs. cardiogenic shock vs. hypovolemic shock vs. catheter induced complication (arrhythmia vs. embolism vs. pneumo/hemothorax) -added vancomycin to zosyn -match I/O -blood culture, CXR -repeat troponin; echo #troponinemia -elevated CKMB; likely demand ischemia in context of infection/hypervolemia -repeat trop, echo in context of hypotension #macrocytic anemia likely related to liver disease ELOS: 4 nights
[2020-04-28 08:02] LABS: Anion Gap 15 mmol/L (10-20); BUN (Urea Nitrogen) 39 mg/dL (8.9-20.6); Calc. Creatinine Clearance 10 mL/min (70-130); Calcium 7.9 mg/dL (7.8-10.44); Carbon Dioxide 32 mmol/L (22-29); Chloride 88 mmol/L (98-107); Estimated GFR-MDRD 6; Glucose 117 mg/dL (70-105); Potassium 4.1 mmol/L (3.5-5.1); Sodium 131 mmol/L (136-145)
[2020-04-28 08:06] LABS: #Basophils 0.1 thou/uL (0.0-0.2); #Lymphocytes 1.4 thou/uL (1.20-3.40); #Monocytes 0.7 thou/uL (0.11-0.59); #Neutrophils 12.3 thou/uL (1.40-6.50); %Basophils 0.3 % (0.0-1.0); %Eosinophils 0.3 % (0.0-10.0); %Lymphocytes 9.6 % (21.0-51.0); %Monocytes 4.7 % (0.0-10.0); Hemoglobin 5.6 g/dL (14.0-18.0); Mean Corpuscular HGB CONC 33.9 g/dL (32.0-36.0); Mean Corpuscular Hemoglobin 35.4 pg (27.0-31.0); Platelet Count 246 thou/uL (130-400); RBC Distribution Width 13.1 % (11.5-14.5); Red Blood Cell (RBC) Count 1.58 mill/uL (4.70-6.10); White Blood Cell (WBC) Count 14.5 thou/uL (4.8-10.8)
--- NOTE | 2020-04-28 08:06 | PRG ---
DATE OF SERVICE: 04/28/2020 SUBJECTIVE: The patient feels well today. He has been weaned off his Levophed drip. OBJECTIVE: VITAL SIGNS: On exam, his temperature is 98.5, pulse 79, blood pressure 111/66, and O2 saturation 100%. Intake 3338, output not quantitated. HEENT: Unremarkable. NECK: No adenopathy or JVD. LUNGS: Clear. CARDIAC: S1 and S2. Regular. ABDOMEN: Soft. EXTREMITIES: No edema. LABORATORY DATA: No new labs were reported today. ASSESSMENT: 1. Transient hypotension, likely related to volume status, now resolved. 2. Sepsis from peritonitis. 3. Chronic renal failure. PLAN: From my standpoint, patient could be transferred out to the floor. He will continue antibiotics per ID and the Hospitalist Group. He does not need vasopressors at this time; therefore, he does not need to be in ICU. Job ID: [id number]
[2020-04-28] MEDS: Sevelamer Carbonate 800 MG TAB PO SCH ×3 (08:16→18:50)
[2020-04-28] MEDS: Fenofibrate Nanocrystallized 145 MG TAB PO SCH (08:17)
[2020-04-28] MEDS: busPIRone HCl 5 MG TAB PO SCH ×2 (08:17→21:39)
[2020-04-28] MEDS: Cyanocobalamin (Vitamin B-12) 1,000 MCG TAB PO SCH (08:17)
[2020-04-28 08:23] LABS: Vancomycin, Trough 31.9 ug/mL
--- NOTE | 2020-04-28 08:54 | PDOC.EVN ---
Event Note - Event Note Event Note: Notified by nurse that patient has HgB 5.6. PRBC x 2, CT thorax and abd/pelvis stat.
--- NOTE | 2020-04-28 09:15 | PDOC.GSPN ---
Surgery Progress Note: Subj - Subjective Narrative: Patient looks and feels much better today. Abdominal pain has resolved and BP is normal, off levophed. Abdominal exam is benign and mental status normal. Hgb has dropped- will recheck as intraoperative bleeding was minimal and no hematemesis/melena to explain drop. Agree with CT abdomen and pelvis but recommend PO contrast. Will follow. If low H/H confirmed on recheck, will need transfusion then serial H/H q6h. Surgery Progress Note: Obj - Vital signs Vital signs: Vital Signs - Most Recent Temp Pulse Resp BP Pulse Ox 98.0 F 77 16 93/60 98 04/28/20 08:00 04/27/20 04:00 04/27/20 04:00 04/27/20 05:15 04/27/20 19:59 Surgery Progress Note: Results - Labs Result Diagrams: 04/28/20 07:35 04/28/20 07:35 Lab results: Laboratory Results - last 24 hr 04/28/20 04/28/20 04/28/20 06:31 07:35 07:35 WBC RBC Hgb Hct MCV MCH MCHC RDW Plt Count MPV Neutrophils % Lymphocytes % Monocytes % Eosinophils % Basophils % Neutrophils # Lymphocytes # Monocytes # Eosinophils # Basophils # Sodium 131 L Potassium 4.1 Chloride 88 L Carbon Dioxide 32 H Anion Gap 15 BUN 39 H Creatinine 9.09 H Estimated GFR (MDRD) 6 Glucose 117 H POC Glucose 157 H Calcium 7.9 Vancomycin Trough 31.9 H* 04/28/20 07:35 WBC 14.5 H RBC 1.58 L Hgb 5.6 L* Hct 16.4 L MCV 104.0 H MCH 35.4 H MCHC 33.9 RDW 13.1 Plt Count 246 MPV 9.0 Neutrophils % 85.0 H Lymphocytes % 9.6 L Monocytes % 4.7 Eosinophils % 0.3 Basophils % 0.3 Neutrophils # 12.3 H Lymphocytes # 1.4 Monocytes # 0.7 H Eosinophils # 0.0 Basophils # 0.1 Sodium Potassium Chloride Carbon Dioxide Anion Gap BUN Creatinine Estimated GFR (MDRD) Glucose POC Glucose Calcium Vancomycin Trough
[2020-04-28 09:55] LABS: #Lymphocytes 1.6 thou/uL (1.20-3.40); #Monocytes 0.8 thou/uL (0.11-0.59); #Neutrophils 12.5 thou/uL (1.40-6.50); %Basophils 0.1 % (0.0-1.0); %Eosinophils 0.1 % (0.0-10.0); %Lymphocytes 10.4 % (21.0-51.0); %Monocytes 5.6 % (0.0-10.0); %Neutrophils 83.8 % (42.0-75.0); Critical Call w/ Read Back NUR.LG7; Hemoglobin 5.8 g/dL (14.0-18.0); Mean Corpuscular HGB CONC 34.1 g/dL (32.0-36.0); Mean Platelet Volume 9.3 fL (7.4-10.4); Platelet Count 255 thou/uL (130-400); Red Blood Cell (RBC) Count 1.65 mill/uL (4.70-6.10)
--- NOTE | 2020-04-28 13:12 | PDOC.OP ---
Operative Note - Operative Note Operative Note: DATE OF PROCEDURE: 04/26/2020 PROCEDURE: Placement of Mueller catheter with ultrasound and fluoroscopic guidance, removal of peritoneal dialysis catheter. SURGEON: Mary Navarro M.D. PREOPERATIVE/POSTOPERATIVE DIAGNOSIS: End-stage renal failure with recurrent peritonitis and need for long-term IV antibiotic access. HISTORY: Patient with renal failure and recurrent catheter associated peritonitis. His electric razor assembler and infectious disease specialist have recommended removal of the peritoneal dialysis catheter. He will also need a Mueller catheter for long-term IV antibiotics.. PROCEDURE: After informed consent was obtained and appropriate preoperative antibiotics were administered, the patient was taken to the Operating Room, placed in the supine position and monitored anesthesia care was administered. The neck and chest were prepped and draped in a standard sterile fashion and the patient placed in Trendelenburg position. A sterile ultrasound probe was used to identify the patent compressible right IJ vein which was accessed under direct ultrasound guidance. A wire was threaded through the needle and confirmed by ultrasound to be within the patent compressible vessel with the tip in the vena cava by fluoroscopy. Local anesthesia was infused to the skin and subcutaneous tissues of the right neck and chest. An infraclavicular incision was made and a catheter tunneled from the infraclavicular to the right IJ access site and trimmed to the appropriate leg. The dilator and sheath were placed over the wire and the dilator and wire removed leaving the sheath in place. The catheter was tunneled through the sheath which was then split and removed leaving the catheter in place. This was confirmed by fluoroscopy to be in good position in the superior vena cava with no kinking of the course of the catheter. Both ports easily aspirated dark venous nonpulsatile blood and easily flushed without resistance. Heparin flush was instilled to the quantity specified on the hub, and the hub was secured to the skin with 3-0 nylon sutures. The skin incision at the neck was closed in two layers with 4-0 Monocryl suture and Dermabond dressings were placed. The skin at the exit site was snugged up around the catheter with 4-0 Monocryl suture and Dermabond was placed there as well. Once the Dermabond was dry, a Biopatch and Tegaderm dressing was placed at the exit site. Attention was then turned to removal of the peritoneal dialysis catheter. The abdomen had been sterilely prepped and draped as well and local anesthesia was infused to the skin and subcutaneous tissues overlying the internal cuffs. The muscular cuff was dissected free of the surrounding rectus muscle and hemostasis verified. The catheter was removed and the rectus sheath closed under direct vision with a 0 Vicryl suture on a UR 6 needle with excellent result. The subcutaneous tissues were copiously irrigated, closed with 3-0 Monocryl suture and the skin closed with a 4-0 Monocryl suture. Dermabond dressings were placed.. The external cuffs were not yet adherent due to recent placement, and these were simply removed and the external opening packed with a Telfa wick. The patient was taken to Recovery in good condition. Estimated blood loss was minimal. There were no complications. There were no specimens.
--- NOTE | 2020-04-28 13:14 | PDOC.GSPN ---
Surgery Progress Note: Subj - Subjective Narrative: Patient has not intraperitoneal fluid as anticipated. This was slightly higher density than serous but does not look like layering blood. I agree with transfusion. Recommend serial H/H posttransfusion. Do not anticipate need for surgery. Surgery Progress Note: Obj - Vital signs Vital signs: Vital Signs - Most Recent Temp Pulse Resp BP Pulse Ox 98.0 F 77 16 93/60 100 04/28/20 08:00 04/27/20 04:00 04/27/20 04:00 04/27/20 05:15 04/28/20 08:00 Surgery Progress Note: Results - Labs Result Diagrams: 04/28/20 09:19 04/28/20 07:35 Lab results: Laboratory Results - last 24 hr 04/28/20 04/28/20 04/28/20 06:31 07:35 07:35 WBC RBC Hgb Hct MCV MCH MCHC RDW Plt Count MPV Neutrophils % Lymphocytes % Monocytes % Eosinophils % Basophils % Neutrophils # Lymphocytes # Monocytes # Eosinophils # Basophils # Sodium 131 L Potassium 4.1 Chloride 88 L Carbon Dioxide 32 H Anion Gap 15 BUN 39 H Creatinine 9.09 H Estimated GFR (MDRD) 6 Glucose 117 H POC Glucose 157 H Calcium 7.9 Vancomycin Trough 31.9 H* Blood Type Antibody Screen Crossmatch 04/28/20 04/28/20 04/28/20 07:35 08:23 09:19 WBC 14.5 H 15.0 H RBC 1.58 L 1.65 L Hgb 5.6 L* 5.8 L* Hct 16.4 L 16.9 L MCV 104.0 H 103.0 H MCH 35.4 H 35.0 H MCHC 33.9 34.1 RDW 13.1 13.0 Plt Count 246 255 MPV 9.0 9.3 Neutrophils % 85.0 H 83.8 H Lymphocytes % 9.6 L 10.4 L Monocytes % 4.7 5.6 Eosinophils % 0.3 0.1 Basophils % 0.3 0.1 Neutrophils # 12.3 H 12.5 H Lymphocytes # 1.4 1.6 Monocytes # 0.7 H 0.8 H Eosinophils # 0.0 0.0 Basophils # 0.1 0.0 Sodium Potassium Chloride Carbon Dioxide Anion Gap BUN Creatinine Estimated GFR (MDRD) Glucose POC Glucose Calcium Vancomycin Trough Blood Type O POSITIVE Antibody Screen NEGATIVE Crossmatch See Detail 04/28/20 10:39 WBC RBC Hgb Hct MCV MCH MCHC RDW Plt Count MPV Neutrophils % Lymphocytes % Monocytes % Eosinophils % Basophils % Neutrophils # Lymphocytes # Monocytes # Eosinophils # Basophils # Sodium Potassium Chloride Carbon Dioxide Anion Gap BUN Creatinine Estimated GFR (MDRD) Glucose POC Glucose 162 H Calcium Vancomycin Trough Blood Type Antibody Screen Crossmatch
[2020-04-28] MEDS: Atorvastatin Calcium 10 MG TAB PO SCH (21:39)
--- NOTE | 2020-04-28 23:02 | PRG ---
DATE OF SERVICE: 04/28/2020 SUBJECTIVE: Noted with the following vital signs. OBJECTIVE: VITAL SIGNS: Afebrile, temperature 97.9, pulse 60, respiratory rate of 16, O2 saturation of 100%, and blood pressure 144/82. HEENT: Unremarkable. CARDIOVASCULAR: First and second heart sounds were heard. RESPIRATORY: Clear to auscultation. DIGESTIVE: Revealed a benign abdomen with positive bowel sounds. EXTREMITIES: No peripheral edema. SKIN: No new gross rash. LYMPHATICS: No peripheral lymphadenopathy. LABORATORY INVESTIGATION: Showed the hemoglobin dropped to 5.6, platelets 255,000, white count of 15,000. IMPRESSION: 1. Severe anemia, query cause. 2. End-stage renal disease. 3. Sepsis with Pseudomonas peritonitis, status post removal of dialysis catheter. PLAN: 1. It is quite worrisome that the hemoglobin dropped to about raising the possibility of bleeding, which may be related to the recent removal of the dialysis catheter or may be other source of bleeding. The patient did require about 2 units of blood and continue with erythropoiesis stimulating agent. We will monitor this hemoglobin closely and if further significant drop, will require possible surgical intervention. 2. We will continue with current regimen of hemodialysis. The patient is beginning to act like somebody that is classified as a failed peritoneal dialysis candidate and will not be committed to permanent hemodialysis. 3. Avoid any anticoagulant put on the floor and during dialysis. 4. Further management to be dependent on the clinical course. Job ID: [id number]
[2020-04-28 23:36] LABS: Hemoglobin 8.1 g/dL (14.0-18.0)
[2020-04-29 04:44] LABS: #Eosinphils 0.1 thou/uL (0.0-0.7); #Lymphocytes 1.2 thou/uL (1.20-3.40); #Monocytes 0.8 thou/uL (0.11-0.59); #Neutrophils 9.5 thou/uL (1.40-6.50); %Basophils 0.2 % (0.0-1.0); %Eosinophils 0.6 % (0.0-10.0); %Lymphocytes 10.2 % (21.0-51.0); %Neutrophils 81.9 % (42.0-75.0); Hemoglobin 7.7 g/dL (14.0-18.0); Mean Corpuscular HGB CONC 35.6 g/dL (32.0-36.0); Mean Corpuscular Hemoglobin 34.1 pg (27.0-31.0); Mean Corpuscular Volume 95.8 fL (78.0-98.0); Mean Platelet Volume 8.4 fL (7.4-10.4); Platelet Count 206 thou/uL (130-400); RBC Distribution Width 14.4 % (11.5-14.5); Red Blood Cell (RBC) Count 2.26 mill/uL (4.70-6.10); White Blood Cell (WBC) Count 11.6 thou/uL (4.8-10.8)
[2020-04-29 05:06] LABS: Anion Gap 14 mmol/L (10-20); BUN (Urea Nitrogen) 46 mg/dL (8.9-20.6); Calc. Creatinine Clearance 10 mL/min (70-130); Calcium 7.3 mg/dL (7.8-10.44); Carbon Dioxide 33 mmol/L (22-29); Chloride 85 mmol/L (98-107); Estimated GFR-MDRD 6; Glucose 117 mg/dL (70-105); Sodium 128 mmol/L (136-145)
[2020-04-29] MEDS: Piperacillin/Tazobactam 2.25 GM in Sodium Chloride 0.9% 100 ML IVPB SCH ×3 (06:14→21:28)
[2020-04-29] MEDS: Cyanocobalamin (Vitamin B-12) 1,000 MCG TAB PO SCH (08:16)
[2020-04-29] MEDS: Fenofibrate Nanocrystallized 145 MG TAB PO SCH (08:16)
[2020-04-29] MEDS: busPIRone HCl 5 MG TAB PO SCH ×2 (08:16→21:27)
[2020-04-29] MEDS: Sevelamer Carbonate 800 MG TAB PO SCH ×3 (08:16→17:40)
[2020-04-29] MEDS: Ondansetron PF 4 MG/2 ML Vial IVP PRN ×2 (08:16→21:28)
--- NOTE | 2020-04-29 11:02 | PDOC.GSPN ---
Surgery Progress Note: Subj - Subjective Narrative: Patient is feeling okay today, just tired. He denies any abdominal pain or nausea. His hemoglobin chinyere appropriately after transfusion yesterday and remained stable on repeat checks through the night. Vital signs are normal. He is afebrile. His abdomen is soft nontender nondistended. His surgical incisions look good. Drain packing at the PD exit site was removed. Assessment/plan: Status post removal of peritoneal dialysis catheter for persistent/recurrent peritonitis. Hypotensive episode postoperatively likely a combination of anemia and sepsis. These are both being treated appropriately and he is improving clinically. His blood count has been stable since transfusion and I have discontinued serial H&H checks. We will repeat his labs in the morning. No new recommendations. Surgery Progress Note: Obj - Vital signs Vital signs: Vital Signs - Most Recent Temp Pulse Resp BP Pulse Ox 97.9 F 59 L 18 135/79 94 L 04/29/20 08:00 04/29/20 08:00 04/29/20 08:00 04/29/20 08:00 04/29/20 08:00 Surgery Progress Note: Results - Labs Result Diagrams: 04/29/20 04:23 04/29/20 04:23 Lab results: Laboratory Results - last 24 hr 04/28/20 04/29/20 04/29/20 23:24 04:23 04:23 WBC 11.6 H RBC 2.26 L Hgb 8.1 L 7.7 L Hct 23.2 L 21.7 L MCV 95.8 MCH 34.1 H MCHC 35.6 RDW 14.4 Plt Count 206 MPV 8.4 Neutrophils % 81.9 H Lymphocytes % 10.2 L Monocytes % 7.0 Eosinophils % 0.6 Basophils % 0.2 Neutrophils # 9.5 H Lymphocytes # 1.2 Monocytes # 0.8 H Eosinophils # 0.1 Basophils # 0.0 Sodium 128 L Potassium 4.0 Chloride 85 L Carbon Dioxide 33 H Anion Gap 14 BUN 46 H Creatinine 9.91 H Estimated GFR (MDRD) 6 Glucose 117 H POC Glucose Calcium 7.3 L Magnesium 2.0 04/29/20 04/29/20 05:50 10:39 WBC RBC Hgb Hct MCV MCH MCHC RDW Plt Count MPV Neutrophils % Lymphocytes % Monocytes % Eosinophils % Basophils % Neutrophils # Lymphocytes # Monocytes # Eosinophils # Basophils # Sodium Potassium Chloride Carbon Dioxide Anion Gap BUN Creatinine Estimated GFR (MDRD) Glucose POC Glucose 123 H 149 H Calcium Magnesium
--- NOTE | 2020-04-29 12:05 | PDOC.HOSPP ---
- Subjective Encounter Date: 04/29/20 Encounter Time: 15:00 Subjective: Patient seen and examined for peritonitis. Abd pain improving. Intermittent nausea. No new complaints. No overnight events - Objective Vital Signs & Weight: Vital Signs (12 hours) Temp Pulse Resp BP Pulse Ox 04/29/20 08:00 97.9 F 59 L 18 135/79 94 L 04/29/20 03:24 98.1 F 63 20 108/65 96 Weight Weight 163 lb 6.4 oz Most Recent Monitor Data Heart Rate from ECG 69 NIBP 134/80 NIBP BP-Mean 96 Respiration from ECG 19 SpO2 95 I&O: 04/28/20 04/29/20 04/30/20 06:59 06:59 06:59 Intake Total 3338.4 750 Output Total 500 Balance 2838.4 750 Result Diagrams: 04/30/20 04:19 04/30/20 04:19 Additional Labs: Accuchecks 04/29/20 04/29/20 04/28/20 10:39 05:50 20:28 POC Glucose 149 H 123 H 148 H 04/28/20 16:38 POC Glucose 165 H EKG Reviewed by me: Yes (Tele SR) Hospitalist ROS - Review of Systems Respiratory: denies: cough, dry, shortness of breath, hemoptysis, SOB with excertion, pleuritic pain, sputum, wheezing, other Cardiovascular: denies: chest pain, palpitations, orthopnea, paroxysmal noc. dyspnea, edema, light headedness, other - Medication Medications: Active Medications Generic Name Dose Route Start Last Admin Trade Name Freq PRN Reason Stop Dose Admin Atorvastatin Calcium 10 mg 04/22/20 21:00 04/28/20 21:39 Lipitor PO 10 mg HS PAT Administration Buspirone HCl 5 mg 04/22/20 09:00 04/29/20 08:16 Buspar PO 5 mg BID PAT Administration Cyanocobalamin 2,000 mcg 04/22/20 09:00 04/29/20 08:16 Vitamin B-12 PO 2,000 mcg DAILY PAT Administration Dextrose/Water 25 gm 04/21/20 20:47 04/27/20 02:45 Dextrose 50% SLOW IVP 25 gm PRN PRN Administration Hypoglycemia Fenofibrate 145 mg 04/22/20 09:00 04/29/20 08:16 Tricor PO 145 mg DAILY PAT Administration Glucagon 1 mg 04/21/20 20:47 04/27/20 02:20 Glucagon IM 1 mg PRN PRN Administration Hypoglycemia Piperacillin Sod/Tazobactam 100 mls @ 200 mls/hr 04/21/20 22:00 04/29/20 06: 14 Sod 2.25 gm/ Sodium Chloride IVPB 100 mls Q8HR PAT Administration Insulin Human Lispro 0 units 04/21/20 20:47 04/28/20 06:28 Humalog SC 2 unit .MODERATE SLIDING SC PRN Administration Moderate Correctional Scale Morphine Sulfate 2 mg 04/26/20 15:08 04/26/20 19:27 Morphine Sulfate SLOW IVP 2 mg Q4H PRN Administration Moderate Pain (4-6) Ondansetron HCl 4 mg 04/21/20 20:44 04/29/20 08:16 Zofran IVP 4 mg Q6H PRN Administration Nausea/Vomiting Sevelamer Carbonate 3,200 mg 04/24/20 17:00 04/29/20 11:14 Renvela PO 3,200 mg 0800,1200,1700 PAT Administration Sodium Chloride 10 ml 04/23/20 09:00 04/29/20 08:17 Flush - Normal Saline IVF 10 ml Q12HR PAT Administration - Exam General Appearance: NAD Heart: RRR, no gallops Respiratory: no wheezes, no ronchi Gastrointestinal: normal bowel sounds, no guarding, no rigidity Extremities: no cyanosis Neurological: no new deficit Hosp A/P - Plan DVT proph w/SCDs Severe sepsis due to peritoneal dialysis catheter associated peritonitis due to Pseudomonas ESRD - changed to HD this admission Anemia of unclear etiology Hyponatremia HTN HLD DM2 PLAN: Cont IV Vanc/Zosyn Monitor Vancomycin level Dialysis per Nephrology Cont sliding scale Cont other meds as above
[2020-04-29] MEDS: Atorvastatin Calcium 10 MG TAB PO SCH (21:27)
[2020-04-30 04:38] LABS: #Eosinphils 0.1 thou/uL (0.0-0.7); #Lymphocytes 1.4 thou/uL (1.20-3.40); #Monocytes 0.8 thou/uL (0.11-0.59); #Neutrophils 7.7 thou/uL (1.40-6.50); %Basophils 0.2 % (0.0-1.0); %Eosinophils 0.8 % (0.0-10.0); %Lymphocytes 13.8 % (21.0-51.0); %Monocytes 7.7 % (0.0-10.0); %Neutrophils 77.6 % (42.0-75.0); Hemoglobin 7.7 g/dL (14.0-18.0); Mean Corpuscular HGB CONC 35.3 g/dL (32.0-36.0); Mean Corpuscular Hemoglobin 33.8 pg (27.0-31.0); Mean Corpuscular Volume 95.8 fL (78.0-98.0); Mean Platelet Volume 8.3 fL (7.4-10.4); Platelet Count 212 thou/uL (130-400); RBC Distribution Width 13.9 % (11.5-14.5); Red Blood Cell (RBC) Count 2.27 mill/uL (4.70-6.10); White Blood Cell (WBC) Count 9.9 thou/uL (4.8-10.8)
[2020-04-30 04:54] LABS: Anion Gap 15 mmol/L (10-20); BUN (Urea Nitrogen) 57 mg/dL (8.9-20.6); Calc. Creatinine Clearance 8 mL/min (70-130); Calcium 7.5 mg/dL (7.8-10.44); Carbon Dioxide 35 mmol/L (22-29); Chloride 84 mmol/L (98-107); Estimated GFR-MDRD 5; Glucose 101 mg/dL (70-105); Sodium 130 mmol/L (136-145)
[2020-04-30] MEDS: Piperacillin/Tazobactam 2.25 GM in Sodium Chloride 0.9% 100 ML IVPB SCH ×3 (05:03→21:27)
[2020-04-30] MEDS: Cyanocobalamin (Vitamin B-12) 1,000 MCG TAB PO SCH (09:11)
[2020-04-30] MEDS: busPIRone HCl 5 MG TAB PO SCH ×2 (09:12→21:25)
[2020-04-30] MEDS: Saccharomyces boulardii 250 MG CAP PO SCH (09:12)
[2020-04-30] MEDS: Fenofibrate Nanocrystallized 145 MG TAB PO SCH (09:12)
[2020-04-30] MEDS: Sevelamer Carbonate 800 MG TAB PO SCH ×3 (09:12→18:21)
[2020-04-30] MEDS: Ondansetron PF 4 MG/2 ML Vial IVP PRN ×2 (09:14→18:11)
[2020-04-30 15:30] LABS: Vancomycin, Random 15.9 ug/mL (See Comment)
--- NOTE | 2020-04-30 15:45 | CT ---
CT thorax noncontrast CT abdomen noncontrast CT pelvis noncontrast: DATE: 04/28/2020 HISTORY: 45-year-old male "acute blood loss status post Mueller, and peritonitis" COMPARISON: CT abdomen and pelvis of 04/21/2020 FINDINGS: No pulmonary consolidation, pleural effusion, pneumothorax, or pulmonary edema. Mild nonspecific grou ndglass densities broadly abutting the posterior pleural surfaces at bilateral lower lobes, new since prior abdominal CT. No thoracic aortic aneurysm, cardiomegaly, or significant mediastinal lymphadenopathy. No mediastinal hematoma. Trachea and bilateral mainstem bronchi are patent and clear. Multiple old, healed right posterior inferior rib fracture deformities. Central venous catheter distal tip is at superior vena cava/right atrial junction. Bilateral L5 pars interarticularis defects. Mild grade 1 anterolisthesis of L5 on S1. No significant disc space narrowing at any level in the lumbar spine no central spinal canal stenosis in the lumbar spine. Vertebral body heights are maintained. Moderate volume of free intraperitoneal fluid in the left upper quadrant and right upper quadrant, pa racolic gutters, and within pelvic cavity. The volume has increased since prior CT. Density of fluid is approximately 20 Hounsfield units, higher than serous fluid. Within the limitations of a noncontrast scan, no major pathology is identified involving spleen, panc reas, abdominal aorta, adrenals, or liver. Kidneys are bilaterally small. No hydronephrosis. Numerous punctate calcifications in the renal upper , mid, and lower poles. Innumerable tiny bilateral renal cysts. Decompressed urinary bladder. Metallic left acetabular cup and metallic left femoral head, neck, and the stem prosthesis, causes st reak artifact, mildly obscuring intrapelvic contents. No definite evidence of colonic diverticulitis, although the free fluid could obscure such findings. No small bowel dilation. No pneumoperitoneum. The peritoneal dialysis catheter has now been removed. IMPRESSION: 1. No major intrathoracic pathology identified. 2. Interval increase in volume of now moderate amount of free fluid throughout the abdominal and pelv ic cavity. Density 20 Hounsfield units. 3. Mild grade 1 spondylolisthesis at L5-S1 due to bilateral L5 spondylolysis. 4. Interval removal of peritoneal dialysis catheter. 5. Evidence for chronic renal failure. Transcribed Date/Time: 04/30/2020 2:38 PM
--- NOTE | 2020-04-30 16:28 | PDOC.HOSPP ---
- Subjective Encounter Date: 04/30/20 Encounter Time: 15:30 Subjective: Patient seen and examined for peritonitis. No new fever/N/V. Abd pain improving. No new complaints. No overnight events - Objective Vital Signs & Weight: Vital Signs (12 hours) Temp Pulse Resp BP Pulse Ox 04/30/20 13:30 98.3 F 61 17 146/81 H 98 04/30/20 08:00 97.6 F 70 18 135/84 97 Weight Weight 161 lb Most Recent Monitor Data Heart Rate from ECG 69 NIBP 134/80 NIBP BP-Mean 96 Respiration from ECG 19 SpO2 95 I&O: 04/29/20 04/30/20 05/01/20 06:59 06:59 06:59 Intake Total 750 838 Output Total 0 Balance 750 838 Result Diagrams: 04/30/20 04:19 04/30/20 04:19 Additional Labs: Accuchecks 04/30/20 04/29/20 04/29/20 06:01 21:02 16:42 POC Glucose 99 101 107 04/27/20 04/27/20 04/27/20 02:41 02:37 02:34 POC Glucose 325 H 55 L* 58 L* 04/27/20 04/27/20 02:32 02:30 POC Glucose 57 L* 61 L EKG Reviewed by me: Yes (Tele SR) Hospitalist ROS - Review of Systems Respiratory: denies: cough, dry, shortness of breath, hemoptysis, SOB with excertion, pleuritic pain, sputum, wheezing, other Cardiovascular: denies: chest pain, palpitations, orthopnea, paroxysmal noc. dyspnea, edema, light headedness, other - Medication Medications: Active Medications Generic Name Dose Route Start Last Admin Trade Name Freq PRN Reason Stop Dose Admin Atorvastatin Calcium 10 mg 04/22/20 21:00 04/29/20 21:27 Lipitor PO 10 mg HS PAT Administration Buspirone HCl 5 mg 04/22/20 09:00 04/30/20 09:12 Buspar PO 5 mg BID PAT Administration Cyanocobalamin 2,000 mcg 04/22/20 09:00 04/30/20 09:11 Vitamin B-12 PO 2,000 mcg DAILY PAT Administration Dextrose/Water 25 gm 04/21/20 20:47 04/27/20 02:45 Dextrose 50% SLOW IVP 25 gm PRN PRN Administration Hypoglycemia Fenofibrate 145 mg 04/22/20 09:00 04/30/20 09:12 Tricor PO 145 mg DAILY PAT Administration Glucagon 1 mg 04/21/20 20:47 04/27/20 02:20 Glucagon IM 1 mg PRN PRN Administration Hypoglycemia Piperacillin Sod/Tazobactam 100 mls @ 200 mls/hr 04/21/20 22:00 04/30/20 14: 52 Sod 2.25 gm/ Sodium Chloride IVPB 100 mls Q8HR PAT Administration Insulin Human Lispro 0 units 04/21/20 20:47 04/28/20 06:28 Humalog SC 2 unit .MODERATE SLIDING SC PRN Administration Moderate Correctional Scale Morphine Sulfate 2 mg 04/26/20 15:08 04/26/20 19:27 Morphine Sulfate SLOW IVP 2 mg Q4H PRN Administration Moderate Pain (4-6) Ondansetron HCl 4 mg 04/21/20 20:44 04/30/20 09:14 Zofran IVP 4 mg Q6H PRN Administration Nausea/Vomiting Saccharomyces Boulardii 250 mg 04/30/20 09:00 04/30/20 09:12 Florastor PO 250 mg DAILY PAT Administration Sevelamer Carbonate 3,200 mg 04/24/20 17:00 04/30/20 12:05 Renvela PO Not Given 0800,1200,1700 PAT Sodium Chloride 10 ml 04/23/20 09:00 04/30/20 09:12 Flush - Normal Saline IVF 10 ml Q12HR PAT Administration - Exam General Appearance: NAD Heart: RRR, no gallops Respiratory: no wheezes, no ronchi Gastrointestinal: non-distended, normal bowel sounds, no guarding, no rigidity Extremities: no cyanosis Neurological: no new deficit Hosp A/P - Plan DVT proph w/SCDs Severe sepsis due to peritoneal dialysis catheter associated peritonitis due to Pseudomonas ESRD - changed to HD this admission Anemia of unclear etiology Hyponatremia HTN HLD DM2 PLAN: Cont IV Zosyn DC Vancomycin Dialysis per Nephrology Cont sliding scale No Heparin due to Anemia Cont other meds as above Await outpt Atbx and dialysis setup Stable for dc
[2020-04-30] MEDS: Atorvastatin Calcium 10 MG TAB PO SCH (21:25)
--- NOTE | 2020-04-30 21:25 | PRG ---
DATE OF SERVICE: 04/30/2020 SUBJECTIVE: The patient is seen and examined, noted with the following vital signs. OBJECTIVE: VITAL SIGNS: Afebrile, temperature 98.3, pulse 64, respiratory rate of 16, O2 saturation of 97%, and blood pressure . HEENT: Unremarkable. CARDIOVASCULAR: First and second heart sounds were heard. RESPIRATORY: Clear to auscultation. DIGESTIVE: Revealed a benign abdomen with positive bowel sounds. EXTREMITIES: No peripheral edema. SKIN: No new gross rash. LYMPHATICS: No peripheral lymphadenopathy. IMPRESSION: 1. End-stage renal disease, on hemodialysis. 2. Pseudomonas peritonitis/sepsis. 3. Anemia, status post blood transfusion. PLAN: 1. Continue with current renal replacement therapy regimen. The patient to be dialyzed today in accordance with the schedule. 2. We will continue with erythropoiesis stimulating agents to address the anemia of this patient. 3. Further management to be dependent on the clinical course. Job ID: [id number]
[2020-05-01] MEDS: Piperacillin/Tazobactam 2.25 GM in Sodium Chloride 0.9% 100 ML IVPB SCH ×3 (05:42→22:12)
[2020-05-01 06:40] LABS: #Eosinphils 0.2 thou/uL (0.0-0.7); #Lymphocytes 1.1 thou/uL (1.20-3.40); #Monocytes 0.9 thou/uL (0.11-0.59); #Neutrophils 7.5 thou/uL (1.40-6.50); %Basophils 0.1 % (0.0-1.0); %Lymphocytes 10.9 % (21.0-51.0); %Monocytes 9.5 % (0.0-10.0); %Neutrophils 77.5 % (42.0-75.0); Hemoglobin 7.7 g/dL (14.0-18.0); Mean Corpuscular HGB CONC 34.6 g/dL (32.0-36.0); Mean Platelet Volume 8.3 fL (7.4-10.4); Platelet Count 234 thou/uL (130-400); RBC Distribution Width 13.8 % (11.5-14.5); Red Blood Cell (RBC) Count 2.27 mill/uL (4.70-6.10); White Blood Cell (WBC) Count 9.7 thou/uL (4.8-10.8)
[2020-05-01 07:00] LABS: Albumin 2.2 g/dL (3.5-5.0); Anion Gap 15 mmol/L (10-20); BUN (Urea Nitrogen) 26 mg/dL (8.9-20.6); BUN/Creatinine Ratio 3.52; Calc. Creatinine Clearance 13 mL/min (70-130); Calcium 7.7 mg/dL (7.8-10.44); Carbon Dioxide 26 mmol/L (22-29); Chloride 95 mmol/L (98-107); Estimated GFR-MDRD 8; Glucose 78 mg/dL (70-105); Phosphorus 4.1 mg/dL (2.3-4.7); Potassium 4.5 mmol/L (3.5-5.1); Sodium 131 mmol/L (136-145)
[2020-05-01] MEDS: busPIRone HCl 5 MG TAB PO SCH ×2 (08:17→22:11)
[2020-05-01] MEDS: Saccharomyces boulardii 250 MG CAP PO SCH (08:17)
[2020-05-01] MEDS: Cyanocobalamin (Vitamin B-12) 1,000 MCG TAB PO SCH (08:18)
[2020-05-01] MEDS: Fenofibrate Nanocrystallized 145 MG TAB PO SCH (08:18)
[2020-05-01] MEDS: Sevelamer Carbonate 800 MG TAB PO SCH ×3 (08:19→17:00)
--- NOTE | 2020-05-01 11:43 | PDOC.HOSPP ---
- Subjective Encounter Date: 05/01/20 Encounter Time: 14:45 Subjective: Mr. Zana Lackey is seen today for follow up of peritonitis secondary to a peritoneal dialysis catheter infection due to Pseuodomonas. Today he reports some nausea and poor appetite, but he states this is because he doesn't like the hospital food. He denies any abdominal pain, fever, chills. He has been able to get up and walk around his room. - Objective Vital Signs & Weight: Vital Signs (12 hours) Temp Pulse Resp BP BP Pulse Ox 05/01/20 07:46 98.5 F 60 16 185/98 H 99 05/01/20 04:00 98.1 F 67 16 163/91 H 100 05/01/20 00:40 160/90 H 05/01/20 00:00 97.8 F 63 18 185/93 H 97 Weight Weight 157 lb 12.8 oz Most Recent Monitor Data Heart Rate from ECG 69 NIBP 134/80 NIBP BP-Mean 96 Respiration from ECG 19 SpO2 95 I&O: 04/30/20 05/01/20 05/02/20 06:59 06:59 06:59 Intake Total 838 612 Output Total 0 2600 Balance 838 -1987 Result Diagrams: 05/01/20 05:55 05/01/20 05:55 Additional Labs: Accuchecks 05/01/20 04/30/20 04/30/20 05:41 20:46 16:50 POC Glucose 94 105 111 H Hospitalist ROS - Review of Systems Constitutional: denies: fever, chills, sweats, weakness, malaise, other Respiratory: denies: cough, dry, shortness of breath, hemoptysis, SOB with excertion, pleuritic pain, sputum, wheezing, other Cardiovascular: denies: chest pain, palpitations, orthopnea, paroxysmal noc. dyspnea, edema, light headedness, other - Medication Medications: Active Medications Generic Name Dose Route Start Last Admin Trade Name Freq PRN Reason Stop Dose Admin Atorvastatin Calcium 10 mg 04/22/20 21:00 04/30/20 21:25 Lipitor PO 10 mg HS PAT Administration Buspirone HCl 5 mg 04/22/20 09:00 05/01/20 08:17 Buspar PO 5 mg BID PAT Administration Cyanocobalamin 2,000 mcg 04/22/20 09:00 05/01/20 08:18 Vitamin B-12 PO 2,000 mcg DAILY PAT Administration Dextrose/Water 25 gm 04/21/20 20:47 04/27/20 02:45 Dextrose 50% SLOW IVP 25 gm PRN PRN Administration Hypoglycemia Fenofibrate 145 mg 04/22/20 09:00 05/01/20 08:18 Tricor PO 145 mg DAILY PAT Administration Glucagon 1 mg 04/21/20 20:47 04/27/20 02:20 Glucagon IM 1 mg PRN PRN Administration Hypoglycemia Piperacillin Sod/Tazobactam 100 mls @ 200 mls/hr 04/21/20 22:00 05/01/20 05: 42 Sod 2.25 gm/ Sodium Chloride IVPB 100 mls Q8HR PAT Administration Insulin Human Lispro 0 units 04/21/20 20:47 04/28/20 06:28 Humalog SC 2 unit .MODERATE SLIDING SC PRN Administration Moderate Correctional Scale Morphine Sulfate 2 mg 04/26/20 15:08 04/26/20 19:27 Morphine Sulfate SLOW IVP 2 mg Q4H PRN Administration Moderate Pain (4-6) Ondansetron HCl 4 mg 04/21/20 20:44 04/30/20 18:11 Zofran IVP 4 mg Q6H PRN Administration Nausea/Vomiting Saccharomyces Boulardii 250 mg 04/30/20 09:00 05/01/20 08:17 Florastor PO 250 mg DAILY PAT Administration Sevelamer Carbonate 3,200 mg 04/24/20 17:00 05/01/20 08:19 Renvela PO 3,200 mg 0800,1200,1700 PAT Administration Sodium Chloride 10 ml 04/23/20 09:00 05/01/20 08:18 Flush - Normal Saline IVF 10 ml Q12HR PAT Administration - Exam General Appearance: NAD, awake alert Heart: RRR, no murmur, no gallops, no rubs Respiratory: CTAB, no wheezes, no rales, no ronchi Gastrointestinal: soft, non-tender, normal bowel sounds Extremities: no cyanosis, no edema Psychiatric: A&O x 3 Hosp A/P - Plan Severe sepsis due to peritoneal dialysis catheter associated peritonitis due to Pseudomonas ESRD - changed to HD this admission. Creatinine improved to 7.38 today. Anemia of unclear etiology Hyponatremia HTN HLD DM2 PLAN: Cont IV Zosyn Dialysis per Nephrology Cont sliding scale No Heparin due to Anemia Cont other meds as above Await outpt Atbx and dialysis setup Stable for dc
--- NOTE | 2020-05-01 13:58 | PRG ---
DATE OF SERVICE: 05/01/2020 SUBJECTIVE: The patient is back from the unit after that episode of hypotension. He is very anemic and got transfused. He is feeling good now. He still does not like the hospital food and is itching to be discharged. No respiratory symptoms. No abdominal pain any longer. No joint symptoms. No neurological issues. OBJECTIVE: VITAL SIGNS: He has been afebrile for a while now. BP 180/106, pulse 61, respiratory rate 16, O2 saturation 99% on room air. GENERAL: Awake, alert, and oriented. LUNGS: Clear. HEART: S1 and S2, regular rate. ABDOMEN: Soft, not distended or tender. PD catheter is removed and now he has a Mueller in the right IJ position. LABORATORY DATA: White cell count 9.7, hemoglobin 7.7, platelets 234. Sodium 131, creatinine 7.38. Negative blood cultures. ASSESSMENT AND DISCUSSION: End-stage renal disease, continuous ambulatory peritoneal dialysis infection by Pseudomonas aeruginosa, failed conservative management. The patient now has a Mueller and will have continuation of cefepime in the outpatient setting to complete course of therapy. We will make preparations. Job ID: [id number]
[2020-05-01] MEDS ORDERED: cloNIDine 0.1 MG TAB PO PRN (14:35)
[2020-05-01] MEDS ORDERED: Amlodipine 5 MG TAB PO SCH (14:45)
--- NOTE | 2020-05-01 16:29 | EKG ---
Test Reason : Blood Pressure : / mmHG Vent. Rate : 086 BPM Atrial Rate : 086 BPM P-R Int : 148 ms QRS Dur : 098 ms QT Int : 374 ms P-R-T Axes : 067 020 034 degrees QTc Int : 447 ms Normal sinus rhythm Left atrial enlargement Left ventricular hypertrophy Borderline ECG Confirmed by MAXI HYMAN, DORIS Sandoval ([id number]), newspaper editor GAURAV LAWS ([id number]) on 05/01/2020 4:29:10 PM Referred By: Confirmed By:DORIS GERMAN MD
[2020-05-01] MEDS: Ondansetron PF 4 MG/2 ML Vial IVP PRN (17:53)
[2020-05-01] MEDS: Morphine 2 MG/ML VIAL SLOW IVP PRN (17:58)
[2020-05-01] MEDS: Atorvastatin Calcium 10 MG TAB PO SCH (22:11)
--- NOTE | 2020-05-02 00:02 | PRG ---
DATE OF SERVICE: SUBJECTIVE: The patient noted with the following vital signs. OBJECTIVE: VITAL SIGNS: Afebrile, temperature 96.1, pulse 63, respiratory rate of 16, O2 sat of 98% with the blood pressure of 173/93 to 184/97. HEENT: Unremarkable. CARDIOVASCULAR: First and second heart sounds were heard. RESPIRATORY: Clear to auscultation. DIGESTIVE: Revealed a benign abdomen. EXTREMITIES: No peripheral edema. SKIN: No new gross rash. LYMPHATICS: No peripheral lymphadenopathy. EXTREMITIES: No peripheral edema. IMPRESSION: 1. End-stage renal disease, on hemodialysis. 2. Peritonitis/sepsis in the context of Pseudomonas aeruginosa infection. 3. Anemia status post blood transfusion. 4. Hypertension suboptimally controlled. PLAN: 1. The patient to undergo dialysis tomorrow in accordance with the current schedule of Thursday, Thursday, Thursday dialysis. 2. The patient to be on erythropoiesis stimulating agent. 3. Antibiotics treatment and planning being connected with Infectious Disease in order to transition to outpatient antibiotics administration. 4. Further management to be dependent on the clinical course. signal manager to finalize the outpatient hemodialysis placement. 5. Further management to be dependent on the clinical course. From the Renal standpoint, patient is due for discharge once the outpatient dialysis facility arrangement is finalized. Job ID: [id number]
[2020-05-02] MEDS: Piperacillin/Tazobactam 2.25 GM in Sodium Chloride 0.9% 100 ML IVPB SCH ×3 (05:34→21:48)
[2020-05-02 05:42] LABS: #Eosinphils 0.3 thou/uL (0.0-0.7); #Lymphocytes 1.3 thou/uL (1.20-3.40); #Monocytes 1.1 thou/uL (0.11-0.59); %Basophils 0.1 % (0.0-1.0); %Eosinophils 2.9 % (0.0-10.0); %Monocytes 10.2 % (0.0-10.0); %Neutrophils 74.7 % (42.0-75.0); Hemoglobin 7.9 g/dL (14.0-18.0); Mean Corpuscular HGB CONC 33.5 g/dL (32.0-36.0); Mean Corpuscular Hemoglobin 33.2 pg (27.0-31.0); Platelet Count 262 thou/uL (130-400); Red Blood Cell (RBC) Count 2.39 mill/uL (4.70-6.10); White Blood Cell (WBC) Count 10.7 thou/uL (4.8-10.8)
[2020-05-02 06:04] LABS: Albumin 2.2 g/dL (3.5-5.0); Anion Gap 14 mmol/L (10-20); BUN (Urea Nitrogen) 31 mg/dL (8.9-20.6); BUN/Creatinine Ratio 3.41; Calc. Creatinine Clearance 0 mL/min (70-130); Calcium 7.5 mg/dL (7.8-10.44); Carbon Dioxide 26 mmol/L (22-29); Chloride 95 mmol/L (98-107); Estimated GFR-MDRD 6; Glucose 96 mg/dL (70-105); Phosphorus 4.4 mg/dL (2.3-4.7); Potassium 4.8 mmol/L (3.5-5.1); Sodium 130 mmol/L (136-145)
[2020-05-02] MEDS: Cyanocobalamin (Vitamin B-12) 1,000 MCG TAB PO SCH (07:45)
[2020-05-02] MEDS: Amlodipine 5 MG TAB PO SCH (07:45)
[2020-05-02] MEDS: Sevelamer Carbonate 800 MG TAB PO SCH ×3 (07:45→18:48)
[2020-05-02] MEDS: busPIRone HCl 5 MG TAB PO SCH ×2 (07:45→21:48)
[2020-05-02] MEDS: Saccharomyces boulardii 250 MG CAP PO SCH (07:46)
[2020-05-02] MEDS: Fenofibrate Nanocrystallized 145 MG TAB PO SCH (07:46)
[2020-05-02] MEDS: EPOETIN ALFA-EPBX (ESRD) 2,000 UNIT/ML VIAL IVP SCH (09:43)
[2020-05-02] MEDS: EPOETIN ALFA-EPBX (ESRD) 3,000 UNIT/ML VIAL IVP SCH (09:43)
--- NOTE | 2020-05-02 10:52 | PDOC.HOSPP ---
- Subjective Encounter Date: 05/02/20 Encounter Time: 15:00 Subjective: Patient seen and examined for Sepsis. Abd pain improving. Mild nausea. No new complaints. No overnight events - Objective Vital Signs & Weight: Vital Signs (12 hours) Temp Pulse Resp BP Pulse Ox 05/02/20 07:45 65 05/02/20 07:33 98.1 F 65 18 179/102 H 98 05/02/20 04:00 98.2 F 66 16 160/97 H 99 05/02/20 00:00 98.2 F 66 16 158/92 H 99 Weight Weight 5.616 oz Most Recent Monitor Data Heart Rate from ECG 69 NIBP 134/80 NIBP BP-Mean 96 Respiration from ECG 19 SpO2 95 I&O: 05/01/20 05/02/20 05/03/20 06:59 06:59 06:59 Intake Total 612 470 Output Total 2600 Balance -1987 470 Result Diagrams: 05/03/20 06:23 05/03/20 06:23 Additional Labs: Accuchecks 05/02/20 05/01/20 05/01/20 05:02 20:28 16:33 POC Glucose 98 129 H 107 05/01/20 12:02 POC Glucose 89 Hospitalist ROS - Review of Systems Respiratory: denies: cough, dry, shortness of breath, hemoptysis, SOB with excertion, pleuritic pain, sputum, wheezing, other Cardiovascular: denies: chest pain, palpitations, orthopnea, paroxysmal noc. dyspnea, edema, light headedness, other - Medication Medications: Active Medications Generic Name Dose Route Start Last Admin Trade Name Freq PRN Reason Stop Dose Admin Amlodipine Besylate 5 mg 05/02/20 09:00 05/02/20 07:45 Norvasc PO Not Given DAILY PAT Atorvastatin Calcium 10 mg 04/22/20 21:00 05/01/20 22:11 Lipitor PO 10 mg HS PAT Administration Buspirone HCl 5 mg 04/22/20 09:00 05/02/20 07:45 Buspar PO Not Given BID PAT Clonidine 0.1 mg 05/01/20 14:35 05/01/20 17:00 Catapres PO 0.1 mg Q4H PRN Administration SBP Greater Than 180 Cyanocobalamin 2,000 mcg 04/22/20 09:00 05/02/20 07:45 Vitamin B-12 PO Not Given DAILY [facility] [place] Dextrose/Water 25 gm 04/21/20 20:47 04/27/20 02:45 Dextrose 50% SLOW IVP 25 gm PRN PRN Administration Hypoglycemia Epoetin Walter-epbx 2,000 unit 05/02/20 09:00 05/02/20 09:43 Retacrit IVP Not Given MoWeFr [facility] [place] Epoetin Walter-epbx 3,000 unit 05/02/20 09:00 05/02/20 09:43 Retacrit IVP Not Given MoWeFr [facility] [place] Fenofibrate 145 mg 04/22/20 09:00 05/02/20 07:46 Tricor PO Not Given DAILY [facility] [place] Glucagon 1 mg 04/21/20 20:47 04/27/20 02:20 Glucagon IM 1 mg PRN PRN Administration Hypoglycemia Piperacillin Sod/Tazobactam 100 mls @ 200 mls/hr 04/21/20 22:00 05/02/20 05: 34 Sod 2.25 gm/ Sodium Chloride IVPB 100 mls Q8HR PAT Administration Insulin Human Lispro 0 units 04/21/20 20:47 04/28/20 06:28 Humalog SC 2 unit .MODERATE SLIDING SC PRN Administration Moderate Correctional Scale Morphine Sulfate 2 mg 04/26/20 15:08 05/01/20 17:58 Morphine Sulfate SLOW IVP 2 mg Q4H PRN Administration Moderate Pain (4-6) Ondansetron HCl 4 mg 04/21/20 20:44 05/01/20 17:53 Zofran IVP 4 mg Q6H PRN Administration Nausea/Vomiting Saccharomyces Boulardii 250 mg 04/30/20 09:00 05/02/20 07:46 Florastor PO Not Given DAILY [facility] [place] Sevelamer Carbonate 3,200 mg 04/24/20 17:00 05/02/20 07:45 Renvela PO Not Given 0800,1200,1700 [facility] [place] Sodium Chloride 10 ml 04/23/20 09:00 05/02/20 07:46 Flush - Normal Saline IVF Not Given Q12HR [facility] - Exam General Appearance: NAD Heart: RRR, no gallops Respiratory: no wheezes, no ronchi Gastrointestinal: soft, no guarding, no rigidity Extremities: no cyanosis Hosp A/P - Plan DVT proph w/SCDs Severe sepsis due to peritoneal dialysis catheter associated peritonitis due to Pseudomonas ESRD - changed to HD this admission Anemia of unclear etiology Hyponatremia HTN HLD DM2 PLAN: Cont IV Zosyn Dialysis per Nephrology No SQ Heparin due to Anemia Cont other meds as above Cont sliding scale Await outpt Atbx setup Outpt dialysis arranged Stable for dc
[2020-05-02 15:21] VITALS: BMI 24.0
[2020-05-02] MEDS: Atorvastatin Calcium 10 MG TAB PO SCH (21:47)
[2020-05-02] MEDS ORDERED: Epoetin (ESRD) 20,000 UNITS/ML IVP SCH (22:29)
[2020-05-03] MEDS: Piperacillin/Tazobactam 2.25 GM in Sodium Chloride 0.9% 100 ML IVPB SCH ×3 (06:07→21:01)
[2020-05-03 06:47] LABS: #Eosinphils 0.3 thou/uL (0.0-0.7); #Lymphocytes 1.2 thou/uL (1.20-3.40); #Monocytes 1.1 thou/uL (0.11-0.59); #Neutrophils 8.4 thou/uL (1.40-6.50); %Basophils 0.4 % (0.0-1.0); %Eosinophils 2.7 % (0.0-10.0); %Lymphocytes 10.8 % (21.0-51.0); %Monocytes 10.1 % (0.0-10.0); Hemoglobin 8.2 g/dL (14.0-18.0); Mean Corpuscular HGB CONC 33.7 g/dL (32.0-36.0); Mean Corpuscular Hemoglobin 33.9 pg (27.0-31.0); Mean Platelet Volume 7.9 fL (7.4-10.4); Platelet Count 291 thou/uL (130-400); RBC Distribution Width 14.2 % (11.5-14.5); Red Blood Cell (RBC) Count 2.42 mill/uL (4.70-6.10); White Blood Cell (WBC) Count 11.1 thou/uL (4.8-10.8)
[2020-05-03 07:04] LABS: Albumin 2.3 g/dL (3.5-5.0); Anion Gap 13 mmol/L (10-20); BUN (Urea Nitrogen) 15 mg/dL (8.9-20.6); BUN/Creatinine Ratio 2.31; Calc. Creatinine Clearance 15 mL/min (70-130); Calcium 7.7 mg/dL (7.8-10.44); Carbon Dioxide 29 mmol/L (22-29); Chloride 95 mmol/L (98-107); Estimated GFR-MDRD 9; Glucose 80 mg/dL (70-105); Phosphorus 3.8 mg/dL (2.3-4.7); Potassium 4.3 mmol/L (3.5-5.1); Sodium 133 mmol/L (136-145)
[2020-05-03] MEDS: Saccharomyces boulardii 250 MG CAP PO SCH (08:16)
[2020-05-03] MEDS: Cyanocobalamin (Vitamin B-12) 1,000 MCG TAB PO SCH (08:16)
[2020-05-03] MEDS: Amlodipine 5 MG TAB PO SCH (08:16)
[2020-05-03] MEDS: busPIRone HCl 5 MG TAB PO SCH ×2 (08:16→21:01)
[2020-05-03] MEDS: Sevelamer Carbonate 800 MG TAB PO SCH ×3 (08:16→18:22)
[2020-05-03] MEDS: Fenofibrate Nanocrystallized 145 MG TAB PO SCH (08:18)
--- NOTE | 2020-05-03 10:18 | PDOC.HOSPP ---
- Subjective Encounter Date: 05/03/20 Encounter Time: 11:17 Subjective: Mr. Zana Lackey is seen today for follow up of peritonitis secondary to a peritoneal dialysis catheter. He reports he is feeling better today. He has had some ongoing nausea and vomiting over the past few days, but he was able to keep his dinner and breakfast down. He has some ongoing abdominal pain with deep palpation, rated at 4/10 today. He is working with PT and has been able to walk around without difficulty. - Objective Vital Signs & Weight: Vital Signs (12 hours) Temp Pulse Resp BP BP BP Pulse Ox 05/03/20 08:16 80 164/97 H 05/03/20 08:00 98.3 F 80 18 164/97 H 97 05/03/20 04:00 98.5 F 72 18 155/92 H 98 05/03/20 00:00 98.0 F 67 18 165/92 H 99 Weight Admit Weight 147 lb 6.4 oz Weight 157 lb 12.8 oz Most Recent Monitor Data Heart Rate from ECG 69 NIBP 134/80 NIBP BP-Mean 96 Respiration from ECG 19 SpO2 95 I&O: 05/02/20 05/03/20 05/04/20 06:59 06:59 06:59 Intake Total 470 Balance 470 Result Diagrams: 05/03/20 06:23 05/03/20 06:23 Additional Labs: Accuchecks 05/03/20 05/02/20 05/02/20 05:12 19:51 16:21 POC Glucose 91 110 95 Hospitalist ROS - Review of Systems Constitutional: denies: fever, chills, sweats, weakness, malaise, other Respiratory: denies: cough, dry, shortness of breath, hemoptysis, SOB with excertion, pleuritic pain, sputum, wheezing, other Cardiovascular: denies: chest pain, palpitations, orthopnea, paroxysmal noc. dyspnea, edema, light headedness, other All other systems reviewed; all pertinent +/- noted in HPI/Subj - Medication Medications: Active Medications Generic Name Dose Route Start Last Admin Trade Name Freq PRN Reason Stop Dose Admin Amlodipine Besylate 5 mg 05/02/20 09:00 05/03/20 08:16 Norvasc PO 5 mg DAILY PAT Administration Atorvastatin Calcium 10 mg 04/22/20 21:00 05/02/20 21:47 Lipitor PO 10 mg HS PAT Administration Buspirone HCl 5 mg 04/22/20 09:00 05/03/20 08:16 Buspar PO 5 mg BID PAT Administration Clonidine 0.1 mg 05/01/20 14:35 05/01/20 17:00 Catapres PO 0.1 mg Q4H PRN Administration SBP Greater Than 180 Cyanocobalamin 2,000 mcg 04/22/20 09:00 05/03/20 08:16 Vitamin B-12 PO 2,000 mcg DAILY PAT Administration Dextrose/Water 25 gm 04/21/20 20:47 04/27/20 02:45 Dextrose 50% SLOW IVP 25 gm PRN PRN Administration Hypoglycemia Epoetin Walter-epbx 2,000 unit 05/02/20 09:00 05/02/20 09:43 Retacrit IVP Not Given MoWe[facility] Epoetin Walter-epbx 3,000 unit 05/02/20 09:00 05/02/20 09:43 Retacrit IVP Not Given MoWeFr [facility] Fenofibrate 145 mg 04/22/20 09:00 05/03/20 08:18 Tricor PO 145 mg DAILY PAT Administration Glucagon 1 mg 04/21/20 20:47 04/27/20 02:20 Glucagon IM 1 mg PRN PRN Administration Hypoglycemia Piperacillin Sod/Tazobactam 100 mls @ 200 mls/hr 04/21/20 22:00 05/03/20 06: 07 Sod 2.25 gm/ Sodium Chloride IVPB 100 mls Q8HR PAT Administration Insulin Human Lispro 0 units 04/21/20 20:47 04/28/20 06:28 Humalog SC 2 unit .MODERATE SLIDING SC PRN Administration Moderate Correctional Scale Morphine Sulfate 2 mg 04/26/20 15:08 05/01/20 17:58 Morphine Sulfate SLOW IVP 2 mg Q4H PRN Administration Moderate Pain (4-6) Ondansetron HCl 4 mg 04/21/20 20:44 05/01/20 17:53 Zofran IVP 4 mg Q6H PRN Administration Nausea/Vomiting Saccharomyces Boulardii 250 mg 04/30/20 09:00 05/03/20 08:16 Florastor PO 250 mg DAILY PAT Administration Sevelamer Carbonate 3,200 mg 04/24/20 17:00 05/03/20 08:16 Renvela PO 3,200 mg 0800,1200,1700 PAT Administration Sodium Chloride 10 ml 04/23/20 09:00 05/03/20 08:18 Flush - Normal Saline IVF 10 ml Q12HR PAT Administration - Exam General Appearance: NAD, awake alert Heart: RRR, no murmur, no gallops, no rubs Respiratory: CTAB, no wheezes Gastrointestinal: soft, non-distended, normal bowel sounds, tender to palpation (only with deep palpation) Extremities - other findings: AV fistula on the left forearm Psychiatric: A&O x 3 Hosp A/P - Plan Severe sepsis due to peritoneal dialysis catheter associated peritonitis due to Pseudomonas ESRD - changed to HD this admission Anemia of unclear etiology Hyponatremia HTN HLD DM2 PLAN: Cont IV Zosyn via Mueller catheter Dialysis MWF per Nephrology No SQ Heparin due to Anemia Cont other meds as above Cont sliding scale Await outpt Atbx setup Outpt dialysis arranged Stable for dc
[2020-05-03] MEDS: Ondansetron PF 4 MG/2 ML Vial IVP PRN (12:38)
[2020-05-03] MEDS: Atorvastatin Calcium 10 MG TAB PO SCH (21:01)
[2020-05-04] MEDS: Piperacillin/Tazobactam 2.25 GM in Sodium Chloride 0.9% 100 ML IVPB SCH ×2 (06:32→14:05)
[2020-05-04] MEDS: Saccharomyces boulardii 250 MG CAP PO SCH (08:20)
[2020-05-04] MEDS: Cyanocobalamin (Vitamin B-12) 1,000 MCG TAB PO SCH (08:20)
[2020-05-04] MEDS: busPIRone HCl 5 MG TAB PO SCH (08:20)
[2020-05-04] MEDS: Sevelamer Carbonate 800 MG TAB PO SCH ×3 (08:20→18:53)
[2020-05-04] MEDS: Amlodipine 5 MG TAB PO SCH (08:21)
[2020-05-04] MEDS: Fenofibrate Nanocrystallized 145 MG TAB PO SCH (08:21)
[2020-05-04] MEDS ORDERED: Carvedilol 25 MG TAB PO SCH (09:15)
--- NOTE | 2020-05-04 09:31 | PDOC.HOSPP ---
- Subjective Encounter Date: 05/04/20 Encounter Time: 09:00 Subjective: Patient seen and examined for Peritonitis. No new complaints. No overnight events - Objective Vital Signs & Weight: Vital Signs (12 hours) Temp Pulse Resp BP BP Pulse Ox 05/04/20 08:00 99 05/04/20 07:38 98.3 F 77 18 178/101 H 99 05/04/20 05:20 98.6 F 66 17 155/91 H 98 Weight Admit Weight 147 lb 6.4 oz Weight 157 lb 12.8 oz Most Recent Monitor Data Heart Rate from ECG 69 NIBP 134/80 NIBP BP-Mean 96 Respiration from ECG 19 SpO2 95 Result Diagrams: 05/03/20 06:23 05/03/20 06:23 Additional Labs: Accuchecks 05/04/20 05/03/20 05/03/20 05:24 20:42 16:48 POC Glucose 84 105 88 05/03/20 10:48 POC Glucose 108 Hospitalist ROS - Review of Systems Respiratory: denies: cough, dry, shortness of breath, hemoptysis, SOB with excertion, pleuritic pain, sputum, wheezing, other Cardiovascular: denies: chest pain, palpitations, orthopnea, paroxysmal noc. dyspnea, edema, light headedness, other - Medication Medications: Active Medications Generic Name Dose Route Start Last Admin Trade Name Freq PRN Reason Stop Dose Admin Amlodipine Besylate 5 mg 05/02/20 09:00 05/04/20 08:21 Norvasc PO 5 mg DAILY PAT Administration Atorvastatin Calcium 10 mg 04/22/20 21:00 05/03/20 21:01 Lipitor PO 10 mg HS PAT Administration Buspirone HCl 5 mg 04/22/20 09:00 05/04/20 08:20 Buspar PO 5 mg BID PAT Administration Clonidine 0.1 mg 05/01/20 14:35 05/01/20 17:00 Catapres PO 0.1 mg Q4H PRN Administration SBP Greater Than 180 Cyanocobalamin 2,000 mcg 04/22/20 09:00 05/04/20 08:20 Vitamin B-12 PO 2,000 mcg DAILY PAT Administration Dextrose/Water 25 gm 04/21/20 20:47 04/27/20 02:45 Dextrose 50% SLOW IVP 25 gm PRN PRN Administration Hypoglycemia Epoetin Walter-epbx 2,000 unit 05/02/20 09:00 05/02/20 09:43 Retacrit IVP Not Given MoWeFr PAT Epoetin Walter-epbx 3,000 unit 05/02/20 09:00 05/02/20 09:43 Retacrit IVP Not Given MoWeFr PAT Fenofibrate 145 mg 04/22/20 09:00 05/04/20 08:21 Tricor PO 145 mg DAILY PAT Administration Glucagon 1 mg 04/21/20 20:47 04/27/20 02:20 Glucagon IM 1 mg PRN PRN Administration Hypoglycemia Piperacillin Sod/Tazobactam 100 mls @ 200 mls/hr 04/21/20 22:00 05/04/20 06: 32 Sod 2.25 gm/ Sodium Chloride IVPB 100 mls Q8HR PAT Administration Insulin Human Lispro 0 units 04/21/20 20:47 04/28/20 06:28 Humalog SC 2 unit .MODERATE SLIDING SC PRN Administration Moderate Correctional Scale Morphine Sulfate 2 mg 04/26/20 15:08 05/01/20 17:58 Morphine Sulfate SLOW IVP 2 mg Q4H PRN Administration Moderate Pain (4-6) Ondansetron HCl 4 mg 04/21/20 20:44 05/03/20 12:38 Zofran IVP 4 mg Q6H PRN Administration Nausea/Vomiting Saccharomyces Boulardii 250 mg 04/30/20 09:00 05/04/20 08:20 Florastor PO 250 mg DAILY PAT Administration Sevelamer Carbonate 3,200 mg 04/24/20 17:00 05/04/20 08:20 Renvela PO 3,200 mg 0800,1200,1700 PAT Administration Sodium Chloride 10 ml 04/23/20 09:00 05/04/20 08:21 Flush - Normal Saline IVF Not Given Q12HR PAT - Exam General Appearance: NAD Heart: RRR, no gallops Respiratory: no wheezes, no ronchi Gastrointestinal: non-tender, non-distended, normal bowel sounds Extremities: no cyanosis Neurological: no new deficit Hosp A/P - Plan DVT proph w/SCDs Severe sepsis due to peritoneal dialysis catheter associated peritonitis due to Pseudomonas ESRD - changed to HD this admission Anemia of unclear etiology Hyponatremia HTN HLD DM2 PLAN: Cont IV Zosyn Dialysis per Nephrology No SQ Heparin due to Anemia Cont other meds as above Cont sliding scale Await outpt Atbx setup Outpt dialysis arranged Stable for dc
[2020-05-04] MEDS: EPOETIN ALFA-EPBX (ESRD) 2,000 UNIT/ML VIAL IVP SCH (18:40)
[2020-05-04] MEDS: EPOETIN ALFA-EPBX (ESRD) 3,000 UNIT/ML VIAL IVP SCH (18:40)
--- NOTE | 2020-05-04 19:13 | DIS ---
DATE OF ADMISSION: 04/21/2020 DATE OF DISCHARGE: 05/04/2020 DISCHARGE DISPOSITION: Home with outpatient IV antibiotics. Hemodialysis has been arranged. The patient was seen and examined on the day of discharge. Denies any new complaints. No chest pain, shortness of breath, or palpitations reported. DISCHARGE MEDICATIONS: The patient will complete cefepime as outpatient at the infusion center. All other home medications were left unchanged. BRIEF HOSPITAL COURSE: The patient is a 45-year-old male, with end- stage renal disease, on peritoneal dialysis, presented to the emergency room with nausea along with vomiting and abdominal discomfort. He also had a temperature of 100.2. He underwent paracentesis that showed 24,000 WBCs with 87% bandemia. The ascitic fluid culture was consistent with Pseudomonas, sensitive to cefepime and Zosyn. He was placed on IV Zosyn, that will be transitioned to cefepime at discharge. Peritoneal dialysis was removed on April,. Mueller catheter was placed for IV antibiotics. Outpatient dialysis has been arranged. There was a delay in the discharge due to outpatient antibiotic setup. He will receive IV antibiotics at the infusion center. He was advised to return to emergency room or contact his PCP if he develops any new symptoms. He will follow up with primary care physician, Dr. Navarro, and Infectious Disease as scheduled. Time coordinating the discharge of this patient was 36 minute FINAL DIAGNOSES: Severe sepsis due to peritoneal dialysis catheter associated peritonitis due to Pseudomonas ESRD - changed to hemodialysis this admission Anemia of unclear etiology Hyponatremia HTN HLD DM2 Job ID: [id number] [facility]
[2020-05-04 19:48] VITALS: BP 167/100; TEMP 98.7
[2020-05-04] MEDS ORDERED: hydrALAZINE 25 MG TAB PO SCH (21:00)
--- NOTE | 2020-05-05 06:45 | PRG ---
DATE OF SERVICE: 05/04/2020 SUBJECTIVE: The patient was seen and examined, very eager to go home. Noted with the following vital signs. OBJECTIVE: VITAL SIGNS: Afebrile, temperature 98.3, pulse 77, respiratory rate of 18, blood pressure 178/101, O2 saturation of 99%. HEENT: Unremarkable. CARDIOVASCULAR SYSTEM: First and second heart sounds were heard. RESPIRATORY: Clear to auscultation. DIGESTIVE SYSTEM: Revealed a benign abdomen. Positive bowel sounds. EXTREMITIES: No peripheral edema. SKIN: No new gross rash. LYMPHATICS: No peripheral lymphadenopathy. IMPRESSION: 1. End-stage renal disease, on hemodialysis. 2. Pseudomonas aeruginosa, peritonitis/sepsis. 3. Anemia status post transfusion. PLAN: 1. Outpatient antibiotics treatment will be set up. Once this was arranged, the patient will be good for discharge as the patient's outpatient hemodialysis is finalized. 2. From the renal standpoint, the patient is to be discharged to continue outpatient dialysis. Job ID: [id number]
--- NOTE | 2020-05-05 06:51 | PRG ---
DATE OF SERVICE: 05/02/2020 SUBJECTIVE: The patient noted with the following vital signs. OBJECTIVE: VITAL SIGNS: Afebrile, temperature 98.1, pulse 63, respiratory rate 16, and blood pressure 158/92. HEENT: Unremarkable. CARDIOVASCULAR: First and second heart sounds were heard. RESPIRATORY: Clear to auscultation. DIGESTIVE: Revealed a benign abdomen. Positive bowel sounds. EXTREMITIES: No peripheral edema. SKIN: No new gross rash. LYMPHATICS: No peripheral lymphadenopathy. IMPRESSION: 1. End-stage renal disease, on hemodialysis. 2. Pseudomonas peritonitis/sepsis. 3. Anemia, status post blood transfusion. PLAN: 1. We will continue with hemodialysis catheter for now. 2. Antibiotics management per the Primary Team and Infectious Disease specialist. 3. Erythropoiesis stimulating agent will be continued. Job ID: [id number]
--- NOTE | 2020-05-05 07:03 | PRG ---
DATE OF SERVICE: 05/05/2020 SUBJECTIVE: The patient noted with the following vital signs. OBJECTIVE: VITAL SIGNS: Afebrile, temperature 98.3, pulse 83, respiratory rate of 18, and blood pressure . HEENT: Unremarkable. CARDIOVASCULAR SYSTEM: First and second heart sounds were heard. RESPIRATORY SYSTEM: Clear to auscultation. DIGESTIVE SYSTEM: Revealed a benign abdomen with positive bowel sounds. EXTREMITIES: No peripheral edema. SKIN: No new gross rash. LYMPHATICS: No peripheral lymphadenopathy. IMPRESSION: 1. End-stage renal disease, on hemodialysis. 2. Pseudomonas peritonitis, on antibiotics. 3. Anemia, status post transfusion. PLAN: 1. We will continue with current management. 2. Continue with current hemodialysis. 3. From the renal standpoint, the patient is good for discharge. Job ID: [id number]
== END 2020-05-04 19:51 | disposition home or self-care (01) | DRG 907 ==
LOC: ERS 15:14 → 2NO 18:16 → T4-A 04-23 18:16 → CCU 04-27 06:17 → 2NO 04-28 10:24 → T4-B 04-30 17:50
PROVIDERS: ADMIT Internal Medicine; ATTEND Internal Medicine
PROC: 0WPG03Z Removal of Infusion Device from Peritoneal Cavity, Open Approach (ICD-10-PCS; principal; 2020-04-26)
PROC: 02HV33Z Insertion of Infusion Device into Superior Vena Cava, Percutaneous Approach (ICD-10-PCS; 2020-04-26)
PROC: B548ZZA Ultrasonography of Superior Vena Cava, Guidance (ICD-10-PCS; 2020-04-26)
PROC: 3E030XZ Introduction of Vasopressor into Peripheral Vein, Open Approach (ICD-10-PCS; 2020-04-27)
PROC: 30233N1 Transfusion of Nonautologous Red Blood Cells into Peripheral Vein, Percutaneous Approach (ICD-10-PCS; 2020-04-28)
DX: T85.71XA Infection and inflammatory reaction due to peritoneal dialysis catheter, initial encounter (principal); N18.6 End stage renal disease; K65.2 Spontaneous bacterial peritonitis; A41.52 Sepsis due to Pseudomonas; R65.20 Severe sepsis without septic shock; I12.0 Hypertensive chronic kidney disease with stage 5 chronic kidney disease or end stage renal disease; E87.1 Hypo-osmolality and hyponatremia; E87.2 Acidosis; I24.8 Other forms of acute ischemic heart disease; E78.00 Pure hypercholesterolemia, unspecified; Z96.642 Presence of left artificial hip joint; E78.5 Hyperlipidemia, unspecified; E11.22 Type 2 diabetes mellitus with diabetic chronic kidney disease; Y84.1 Kidney dialysis as the cause of abnormal reaction of the patient, or of later complication, without mention of misadventure at the time of the procedure; D53.9 Nutritional anemia, unspecified; D63.1 Anemia in chronic kidney disease; Z79.899 Other long term (current) drug therapy; Z99.2 Dependence on renal dialysis; E87.5 Hyperkalemia; I95.89 Other hypotension
CPT/HCPCS: 36415; 36416; 36430; 71045; 71250; 74176; 74177; 80048; 80053; 80069; 80202; 82150; 82553; 82945; 83605; 83615; 83735; 83880; 84157; 84484; 85025; 85060; 86850; 86900; 86901; 87040; 87070; 87077; 87186; 87205; 87340; 89051; 90935; 90945; 93005; 93010; 93306; 96374; 96375; C1751; G0257; J0360; J0690; J1610; J1642; J1644; J1815; J2185; J2270; J2405; J2543; J2550; J2704; J3010; J3370; J3490; J7030; J7070; J7620; P9016; Q5105; Q9967; S0020; U0002

== ENCOUNTER 2020-06-25 08:44 | Emergency (ER) | payer BC ==
[2020-06-25] MEDS ORDERED: HYDROcodone/Acetaminophen 5/325 mg Tablet ONE (09:36)
[2020-06-25] MEDS ORDERED: Dexamethasone 10 MG/ML VIAL ONE (09:36)
--- NOTE | 2020-06-25 10:17 | RAD ---
LEFT SHOULDER 3 VIEWS: HISTORY: Shoulder pain. COMPARISON: None. FINDINGS: No acute fracture or malalignment. Acromioclavicular alignment is normal. Visualized ribs are intact. IMPRESSION: No acute osseous abnormality. POS: HOME
--- NOTE | 2020-06-26 16:15 | EKG ---
Test Reason : Blood Pressure : / mmHG Vent. Rate : 072 BPM Atrial Rate : 072 BPM P-R Int : 140 ms QRS Dur : 086 ms QT Int : 428 ms P-R-T Axes : 074 044 061 degrees QTc Int : 468 ms Normal sinus rhythm Normal ECG Confirmed by LINNETTE MAJOR ([id number]), editorial intern GAURAV LAWS ([id number] on 06/26/2020 4:14:35 PM Referred By: Confirmed By:LINNETTE MAJOR
== END 2020-06-25 11:58 | disposition home or self-care (01) ==
LOC: ERS 08:44
DX: M25.512 Pain in left shoulder (principal); I12.0 Hypertensive chronic kidney disease with stage 5 chronic kidney disease or end stage renal disease; N18.6 End stage renal disease; E11.22 Type 2 diabetes mellitus with diabetic chronic kidney disease; F17.210 Nicotine dependence, cigarettes, uncomplicated; Z79.899 Other long term (current) drug therapy
CPT/HCPCS: 93005; 96372; J1100

== ENCOUNTER 2020-06-30 02:55 | Emergency (ER) | payer BC ==
--- NOTE | 2020-06-30 10:14 | RAD ---
LEFT SHOULDER 3 VIEWS: Date: 06/30/2020 HISTORY: Shoulder pain. FINDINGS: No fracture or dislocation seen. AC joint normally aligned. IMPRESSION: No acute findings. POS: [facility]
== END 2020-06-30 03:55 | disposition home or self-care (01) ==
LOC: ERS 02:55
DX: M25.511 Pain in right shoulder (principal); I12.0 Hypertensive chronic kidney disease with stage 5 chronic kidney disease or end stage renal disease; E11.22 Type 2 diabetes mellitus with diabetic chronic kidney disease; N18.6 End stage renal disease; F17.210 Nicotine dependence, cigarettes, uncomplicated; Z79.899 Other long term (current) drug therapy

== ENCOUNTER 2020-07-29 19:23 | Emergency (ER) | payer BC, OTHER ==
[2020-07-29 20:03] LABS: #Eosinphils 0.2 thou/uL (0.0-0.7); #Lymphocytes 1.3 thou/uL (1.20-3.40); #Monocytes 0.7 thou/uL (0.11-0.59); #Neutrophils 4.9 thou/uL (1.40-6.50); %Basophils 0.5 % (0.0-1.0); %Eosinophils 2.7 % (0.0-10.0); %Monocytes 10.4 % (0.0-10.0); %Neutrophils 68.5 % (42.0-75.0); Hemoglobin 8.1 g/dL (14.0-18.0); Mean Corpuscular Hemoglobin 32.8 pg (27.0-31.0); Mean Corpuscular Volume 99.5 fL (78.0-98.0); Mean Platelet Volume 7.3 fL (7.4-10.4); Platelet Count 311 thou/uL (130-400); RBC Distribution Width 15.1 % (11.5-14.5); Red Blood Cell (RBC) Count 2.47 mill/uL (4.70-6.10); White Blood Cell (WBC) Count 7.2 thou/uL (4.8-10.8)
--- NOTE | 2020-07-29 20:10 | RAD ---
XR Chest 1 View Portable History: Hypertension Comparison: Radiograph April 2020 Findings: Lungs are clear. No pneumothorax or effusion. Cardiac silhouette and mediastinal contours a re within normal limits. The central venous catheter has been removed. Impression: No acute intrathoracic abnormality.
[2020-07-29 20:27] LABS: ALT (SGPT) 10 U/L (8-55); AST (SGOT) 29 U/L (5-34); Albumin 3.1 g/dL (3.5-5.0); Alkaline Phosphatase 83 U/L (40-110); Anion Gap 14 mmol/L (10-20); BUN (Urea Nitrogen) 32 mg/dL (8.9-20.6); Bilirubin, Total 0.3 mg/dL (0.2-1.2); Calc. Creatinine Clearance 0 mL/min (70-130); Calcium 8.6 mg/dL (7.8-10.44); Carbon Dioxide 30 mmol/L (22-29); Chloride 93 mmol/L (98-107); Estimated GFR-MDRD 9; Globulin 4.3 g/dL (2.4-3.5); Glucose 118 mg/dL (70-105); Potassium 5.1 mmol/L (3.5-5.1); Protein, Total 7.4 g/dL (6.0-8.3); Sodium 132 mmol/L (136-145)
[2020-07-29] MEDS ORDERED: Labetalol HCl 100 MG/20 ML VIAL ONE (21:01)
--- NOTE | 2020-07-29 22:02 | RAD ---
XR Shoulder Lt 3 View STANDARD History: Injury Comparison: Radiograph left month Findings: No acute fracture or malalignment. Visualized ribs are intact. Impression: No acute osseous abnormality.
--- NOTE | 2020-07-29 22:03 | RAD ---
XR Knee Rt 4 View STANDARD History: Pain Comparison: None. Findings: Moderate joint effusion. No acute fracture or malalignment. Diffuse arterial medial scleros is. Impression: 1. No acute fracture or malalignment. 2. Diffuse arterial medial sclerosis. 3. Moderate joint effusion could be reactive. If clinically warranted, nonemergent MRI recommended.
[2020-07-29 23:01] LABS: Troponin I 0.018 ng/mL (< 0.028)
== END 2020-07-29 23:30 | disposition home or self-care (01) ==
LOC: ERS 19:23
DX: I12.0 Hypertensive chronic kidney disease with stage 5 chronic kidney disease or end stage renal disease (principal); N18.6 End stage renal disease; R07.9 Chest pain, unspecified; E11.22 Type 2 diabetes mellitus with diabetic chronic kidney disease; F17.210 Nicotine dependence, cigarettes, uncomplicated; Z79.899 Other long term (current) drug therapy
CPT/HCPCS: 36415; 71045; 80053; 84484; 85025; 93005; 96374

== ENCOUNTER 2020-08-10 16:13 | Inpatient (IN) | payer BC, OTHER ==
[2020-08-10 17:49] LABS: #Eosinphils 0.2 thou/uL (0.0-0.7); #Lymphocytes 1.1 thou/uL (1.20-3.40); #Monocytes 0.8 thou/uL (0.11-0.59); #Neutrophils 7.6 thou/uL (1.40-6.50); %Basophils 0.5 % (0.0-1.0); %Eosinophils 2.3 % (0.0-10.0); %Lymphocytes 11.5 % (21.0-51.0); %Neutrophils 77.6 % (42.0-75.0); Hemoglobin 10.1 g/dL (14.0-18.0); Mean Corpuscular HGB CONC 32.5 g/dL (32.0-36.0); Mean Corpuscular Hemoglobin 32.7 pg (27.0-31.0); Mean Platelet Volume 7.6 fL (7.4-10.4); Platelet Count 435 thou/uL (130-400); RBC Distribution Width 17.5 % (11.5-14.5); Red Blood Cell (RBC) Count 3.09 mill/uL (4.70-6.10); White Blood Cell (WBC) Count 9.8 thou/uL (4.8-10.8)
--- NOTE | 2020-08-10 17:57 | RAD ---
ONE VIEW CHEST: 08/10/20 HISTORY: Fever. COMPARISON: 07/29/20. FINDINGS: The cardiac silhouette is magnified by projection but is stable in size compared to prior study. Pulm onary vasculature is borderline increased. Lungs are otherwise clear without consolidation or pleural fluid seen. Vascular calcifications are seen in the thoracic aorta. No other interval change. IMPRESSION: Findings suggesting mild pulmonary vascular congestion when compared to prior exam. Lungs are otherwi se clear. POS: MARCELOC
[2020-08-10 18:10] LABS: ALT (SGPT) 11 U/L (8-55); AST (SGOT) 29 U/L (5-34); Albumin 3.5 g/dL (3.5-5.0); Alkaline Phosphatase 90 U/L (40-110); Anion Gap 15 mmol/L (10-20); BUN (Urea Nitrogen) 41 mg/dL (8.9-20.6); Bilirubin, Total 0.3 mg/dL (0.2-1.2); Calc. Creatinine Clearance 0 mL/min (70-130); Calcium 8.9 mg/dL (7.8-10.44); Carbon Dioxide 28 mmol/L (22-29); Chloride 93 mmol/L (98-107); Estimated GFR-MDRD 9; Globulin 4.6 g/dL (2.4-3.5); Glucose 94 mg/dL (70-105); Protein, Total 8.1 g/dL (6.0-8.3); Sodium 129 mmol/L (136-145)
[2020-08-10 18:19] LABS: Potassium 7.3 mmol/L (3.5-5.1)
[2020-08-10] MEDS ORDERED: Calcium Gluc 4.6 MEQ/10 ML (100 MG/ML) ONE (18:50)
[2020-08-10] MEDS ORDERED: Albuterol Sulfate 2.5 mg/3 ml Neb ONE (19:06)
[2020-08-10] MEDS ORDERED: Dextrose 50% Abboject 50 ML SYRINGE ONE ×3 (19:09→20:49)
[2020-08-10] MEDS ORDERED: Insulin Regular 300 UNITS/3 ML VIAL ONE (19:09)
[2020-08-10] MEDS ORDERED: Sodium Bicarbonate 2.5 MEQ/5 ML VIAL ONE (19:09)
[2020-08-10] MEDS ORDERED: Sodium Bicarb 50 MEQ/50 ML VIAL ONE (19:12)
[2020-08-10] MEDS ORDERED: Acetaminophen 325 MG TAB PO PRN (19:48)
[2020-08-10] MEDS ORDERED: hydrALAZINE 20 MG/ML VIAL SLOW IVP PRN (19:50)
--- NOTE | 2020-08-10 21:33 | PDOC.EVN ---
Event Note - Event Note Event Note: [id number]
[2020-08-10 23:14] LABS: HBSAg Index 0.19 S/CO (0-0.99); Hep B Surf Ag Non-Reactive S/CO (NonReactive)
--- NOTE | 2020-08-11 00:36 | HP ---
CHIEF COMPLAINT: Headache, chills, and elevated blood pressure. HISTORY OF PRESENT ILLNESS: Mr. Spann is a 45-year-old male with past medical history of end-stage renal disease, on hemodialysis; hypertension; diabetes, type 2 among others, who presents from dialysis center for concern of elevated blood pressure as well as headache, chills at dialysis session. Dialysis called to arrange for COVID test and did not perform dialysis prior to transfer. The patient reports that he took all his blood pressure medications this morning, but the blood pressure remains high. The patient denies feeling of illness currently, but states generalized fatigue. Denies any fevers, chills, cough, or shortness of breath. Notes no prior exposure to COVID. Workup in the emergency room, patient was found to be hyperkalemic with a potassium more than 7. The patient was given calcium gluconate, D50, insulin, bicarb, and a health outreach worker was consulted, who is arranging for urgent hemodialysis. The patient is being admitted to the hospital for further management. PAST MEDICAL HISTORY: As mentioned above in history of present illness. PAST SURGICAL HISTORY: 1. Left hip and right ankle surgery. 2. Peritoneal dialysis placement. 3. Dialysis fistula in the left upper extremity. SOCIAL HISTORY: The patient currently uses drugs, uses marijuana, currently smokes two cigarettes per day. FAMILY HISTORY: Reviewed and noncontributory. HOME MEDICATIONS: Please see home medication reconciliation form for updated medications. ALLERGIES: NO KNOWN ALLERGIES. REVIEW OF SYSTEMS: Review of 14 systems negative except what is mentioned in history of present illness. PHYSICAL EXAMINATION: GENERAL: The patient is awake, does not appear to be in acute distress. VITAL SIGNS: Blood pressure 182/113, pulse 68, respiratory rate is 18, oxygen saturation is 100% on room air, temperature 97.5. HEAD AND NECK: Normocephalic, atraumatic. Neck is supple. CHEST: Fair bilateral air entry. HEART: S1, S2. Regular. ABDOMEN: Soft, nontender. NEUROLOGIC: Awake, alert. EXTREMITIES: No cyanosis, no clubbing. NEUROLOGIC: Awake and alert. Moving extremities. LABORATORY DATA: WBC 9.8, hemoglobin 10.1, platelets 435. Sodium 129, potassium 7.3, BUN is 41, creatinine 6.6. BNP is 851. ASSESSMENT: 1. Acute hyperkalemia. 2. End-stage renal disease, needing hemodialysis. 3. Hypertensive urgency. 4. Diabetes mellitus, type 2. PLAN: 1. Admit. 2. Medical management for hyperkalemia was initiated in the emergency room including calcium gluconate, D50, insulin. 3. First Aid Teacher is consulted who is arranging for urgent hemodialysis. 4. COVID-19 test sent. We will keep him on isolation precautions for now. 5. Reconcile home medications. 6. DVT prophylaxis as appropriate. 7. Expected length of stay, 2 midnights or more. Job ID: [id number]
[2020-08-11 01:22] VITALS: BMI 19.0
[2020-08-11 01:47] LABS: #Eosinphils 0.2 thou/uL (0.0-0.7); #Lymphocytes 1.4 thou/uL (1.20-3.40); #Monocytes 0.8 thou/uL (0.11-0.59); #Neutrophils 5.9 thou/uL (1.40-6.50); %Basophils 0.5 % (0.0-1.0); %Eosinophils 2.2 % (0.0-10.0); %Monocytes 9.5 % (0.0-10.0); %Neutrophils 70.8 % (42.0-75.0); Hemoglobin 10.4 g/dL (14.0-18.0); Mean Corpuscular Hemoglobin 33.3 pg (27.0-31.0); Mean Platelet Volume 7.2 fL (7.4-10.4); Platelet Count 411 thou/uL (130-400); RBC Distribution Width 17.6 % (11.5-14.5); Red Blood Cell (RBC) Count 3.12 mill/uL (4.70-6.10); White Blood Cell (WBC) Count 8.4 thou/uL (4.8-10.8)
[2020-08-11 02:16] LABS: Anion Gap 15 mmol/L (10-20); BUN (Urea Nitrogen) 13 mg/dL (8.9-20.6); Calc. Creatinine Clearance 26 mL/min (70-130); Calcium 9.4 mg/dL (7.8-10.44); Carbon Dioxide 27 mmol/L (22-29); Chloride 94 mmol/L (98-107); Estimated GFR-MDRD 23; Glucose 75 mg/dL (70-105); Potassium 4.2 mmol/L (3.5-5.1); Sodium 132 mmol/L (136-145)
[2020-08-11] MEDS ORDERED: FLU VACC QS2020-21(6MOS UP)/PF 60 MCG/0.5 ML SYRINGE IM ONE (09:00)
[2020-08-11 11:40] VITALS: TEMP 98.5
[2020-08-11 12:03] LABS: SARS-CoV-2 MS2 Positive; SARS-CoV-2 N Gene Negative; SARS-CoV-2 S Gene Negative; SARS-CoV-2 by NAA Not Detected (NotDetected); SARS-CoV-2 orf1ab Negative
[2020-08-11] MEDS ORDERED: hydrALAZINE 25 MG TAB PO SCH ×2 (15:45→21:00)
[2020-08-11] MEDS ORDERED: Amlodipine 10 MG TAB PO SCH ×2 (15:45→21:00)
[2020-08-11] MEDS ORDERED: Carvedilol 25 MG TAB PO SCH ×2 (15:45→21:00)
[2020-08-11 16:51] VITALS: BP 163/94
--- NOTE | 2020-08-11 19:33 | PRG ---
DATE OF SERVICE: 08/11/2020 SUBJECTIVE: Seen and examined today, he is feeling much better status post hemodialysis last night, noted with the following vital signs. OBJECTIVE: VITAL SIGNS: Afebrile, temperature 98.3, pulse 70, respiratory rate of 17, O2 saturations of 94%, with a blood pressure 157/92. HEENT: Unremarkable. CARDIOVASCULAR SYSTEM: First and second heart sounds were heard. RESPIRATORY SYSTEM: Clear to auscultation. DIGESTIVE SYSTEM: Revealed a benign abdomen with positive bowel sounds. EXTREMITIES: No peripheral edema. SKIN: No new gross rash. LYMPHATICS: No peripheral lymphadenopathy. IMPRESSION: 1. End-stage renal disease. 2. Severe hyperkalemia, responded very well to hemodialysis. PLAN: From the renal standpoint, the patient is due for discharge, will be dependent on the primary team. Job ID: [id number]
[2020-08-11] MEDS ORDERED: Sevelamer Carbonate 800 MG TAB PO SCH (21:00)
[2020-08-11] MEDS ORDERED: Atorvastatin Calcium 10 MG TAB PO SCH (21:00)
--- NOTE | 2020-08-11 22:19 | DIS ---
DATE OF ADMISSION: 08/10/2020 DATE OF DISCHARGE: 08/11/2020 DISCHARGE DIAGNOSES: 1. Hypertensive urgency. 2. End-stage renal disease, on dialysis. 3. Severe hyperkalemia. HOSPITAL COURSE: This is a 45-year-old male patient with history of ESRD, who was sent in from his dialysis unit on account of significantly elevated blood pressures and he was unable to receive dialysis. On presentation, he was hyperkalemic with potassium at 7.3. Nephrology was consulted and he had dialysis with improvement in his potassium from 7.3 to 7.2. He also had a mild hyponatremia of 129, which improved to 132 after dialysis. DISCHARGE EXAMINATION: GENERAL: The patient in bed, in no acute distress. RESPIRATORY SYSTEM: Air entry adequate bilaterally. CARDIOVASCULAR SYSTEM: S1 and S2 present and normal. No murmurs, gallops, or rubs. ABDOMEN: Benign. EXTREMITIES: No edema. DISCHARGE CONDITION: Stable. GYROSCOPIC ENGINEERING TECHNICIAN: Dr. Nevaeh Hawk - Nephrology. DISCHARGE MEDICATIONS: Home blood pressure medications. Job ID: [id number]
--- NOTE | 2020-08-12 07:58 | CON ---
DATE OF CONSULTATION: 08/10/2020 IMPRESSION: 1. Severe hyperkalemia in the context of end-stage renal disease. 2. End-stage renal disease. PLAN: 1. The patient to be emergently dialyzed. Meanwhile, we will continue with medical management of hyperkalemia with insulin, dextrose, albuterol . 2. Renally dose all medications. 3. Further management will be dependent on the clinical course. HISTORY OF PRESENT ILLNESS: History is that of a 45-year-old gentleman with end-stage renal disease, hemodialysis dependent, who presented to his outpatient dialysis today and complained of nausea as well as feeling sick and having some subjective fever. The patient was sent over to the ER, where initial evaluation for COVID was done and came back negative. However, incidentally, the patient was noted to be severely hyperkalemic with EKG changes of waves and potassium of 7.3, decision was taken to the involve Renal for possible emergency dialysis. PAST MEDICAL HISTORY: Significant for end-stage renal disease, hypertension, dyslipidemia, and type 2 diabetes. MEDICATIONS: Reviewed and documented on Mayvenn. FAMILY HISTORY: Nonsignificantly related to present illness. ALLERGIES: NO KNOWN DRUG ALLERGIES. SOCIAL HISTORY: Significant for the patient does smoke two cigarettes per day and uses marijuana. PHYSICAL EXAMINATION: GENERAL: The patient was found to be ill looking. Noted with the following vital signs. VITAL SIGNS: Afebrile, temperature 98.1, pulse 86, and respiratory rate of 20 with blood pressure 156/104. HEENT: Unremarkable. CARDIOVASCULAR SYSTEM: First and second heart sounds were heard. RESPIRATORY SYSTEM: Clear to auscultation. DIGESTIVE SYSTEM: Revealed a benign abdomen. Positive bowel sounds. EXTREMITIES: No peripheral edema. SKIN: No new gross rash. LYMPHATICS: No peripheral lymphadenopathy. LABORATORY INVESTIGATION: Showed sodium of 129, potassium 7.3, and creatinine 6.63 with BUN of 41. BNP of 851. SUMMARY: A 45-year-old gentleman with end-stage renal disease, who presented here, noted to be severely hyperkalemia. Thank you for this consultation. We will follow with you. Job ID: [id number]
[2020-08-12] MEDS ORDERED: Aspirin 81 mg Enteric Coated Tablet PO SCH (09:00)
== END 2020-08-11 17:47 | disposition home or self-care (01) | DRG 640 ==
LOC: ERS 16:13 → 2NO 20:15
PROVIDERS: ADMIT Internal Medicine; ATTEND Internal Medicine
PROC: 5A1D70Z Performance of Urinary Filtration, Intermittent, Less than 6 Hours Per Day (ICD-10-PCS; principal; 2020-08-10)
DX: E87.5 Hyperkalemia (principal); N18.6 End stage renal disease; I12.0 Hypertensive chronic kidney disease with stage 5 chronic kidney disease or end stage renal disease; I16.0 Hypertensive urgency; E11.22 Type 2 diabetes mellitus with diabetic chronic kidney disease; F17.210 Nicotine dependence, cigarettes, uncomplicated; E87.1 Hypo-osmolality and hyponatremia; E78.5 Hyperlipidemia, unspecified; Z20.828 Contact with and (suspected) exposure to other viral communicable diseases; Z79.899 Other long term (current) drug therapy; Z79.82 Long term (current) use of aspirin; Z99.2 Dependence on renal dialysis
CPT/HCPCS: 36415; 36416; 71045; 80053; 83880; 85025; 87340; 87635; 87804; 90935; 93005; 94640; 96374; 96375; G0257; J0360; J1815; J2001; J7611; U0003

== ENCOUNTER 2021-03-29 14:29 | Inpatient (IN) | payer BC ==
[2021-03-29] MEDS ORDERED: Boostrix 0.5 ML (Tdap) VIAL ONE (14:47)
[2021-03-29] MEDS ORDERED: Fentanyl 100 MCG/2 ML VIAL ONE ×4 (14:47→18:44)
[2021-03-29 14:58] LABS: #Basophils 0.1 thou/uL (0.0-0.2); #Eosinphils 0.1 thou/uL (0.0-0.7); #Lymphocytes 3.4 thou/uL (1.20-3.40); #Neutrophils 4.3 thou/uL (1.40-6.50); %Basophils 0.6 % (0.0-1.0); %Eosinophils 1.5 % (0.0-10.0); %Lymphocytes 38.2 % (21.0-51.0); %Monocytes 11.5 % (0.0-10.0); %Neutrophils 48.1 % (42.0-75.0); Mean Corpuscular HGB CONC 33.3 g/dL (32.0-36.0); Mean Corpuscular Hemoglobin 34.4 pg (27.0-31.0); Mean Platelet Volume 7.4 fL (7.4-10.4); Platelet Count 294 thou/uL (130-400); RBC Distribution Width 13.2 % (11.5-14.5); Red Blood Cell (RBC) Count 4.35 mill/uL (4.70-6.10); White Blood Cell (WBC) Count 8.9 thou/uL (4.8-10.8)
[2021-03-29 15:09] LABS: PTT 25.2 sec (22.9-36.1); Prothrombin Time 13.6 sec (12.0-14.7)
[2021-03-29 15:18] LABS: ALT (SGPT) 10 U/L (8-55); AST (SGOT) 18 U/L (5-34); Albumin 4.4 g/dL (3.5-5.0); Alkaline Phosphatase 123 U/L (40-110); Anion Gap 23 mmol/L (10-20); BUN (Urea Nitrogen) 48 mg/dL (8.9-20.6); Bilirubin, Total 0.6 mg/dL (0.2-1.2); CK (CPK) 169 U/L (30-200); Calc. Creatinine Clearance 0 mL/min (70-130); Calcium 8.9 mg/dL (7.8-10.44); Carbon Dioxide 26 mmol/L (22-29); Chloride 95 mmol/L (98-107); Globulin 3.9 g/dL (2.4-3.5); Glucose 115 mg/dL (70-105); Potassium 3.9 mmol/L (3.5-5.1); Protein, Total 8.3 g/dL (6.0-8.3); Sodium 140 mmol/L (136-145)
[2021-03-29] MEDS ORDERED: Lidocaine 1% w/Epinephrine 1:100K 20 ML VIAL ONE (16:24)
[2021-03-29] MEDS ORDERED: Bupivacaine PF 0.5% 30 ML VIAL ONE (16:24)
[2021-03-29] MEDS ORDERED: Neomycin-Polymyxin 1 ML AMP ONE (16:24)
[2021-03-29] MEDS ORDERED: traMADol HCl 50 MG TAB PO PRN (17:18)
[2021-03-29] MEDS ORDERED: Dextrose 50% Abboject 50 ML SYRINGE SLOW IVP PRN (17:18)
[2021-03-29] MEDS ORDERED: Cyclobenzaprine 10 MG TAB PO PRN (17:18)
[2021-03-29] MEDS ORDERED: Dextrose 5% in Water 1,000 ML IV PRN (17:18)
[2021-03-29] MEDS ORDERED: Ondansetron ODT 4 MG TAB PO PRN (17:18)
[2021-03-29] MEDS ORDERED: Esmolol 100 MG/10 ML VIAL ONE (17:19)
[2021-03-29] MEDS ORDERED: Lidocaine 1% PF 5 ML VIAL ONE (17:19)
[2021-03-29] MEDS ORDERED: PROPOFOL 200 MG/20 ML VIAL ONE (17:19)
[2021-03-29] MEDS ORDERED: Ondansetron PF 4 MG/2 ML Vial ONE (17:19)
[2021-03-29] MEDS ORDERED: Metoprolol Tartrate 5 MG/5 ML VIAL ONE ×2 (17:19→18:34)
[2021-03-29] MEDS ORDERED: Rocuronium Bromide 10 MG/ML (10ML VIAL) ONE (17:19)
[2021-03-29] MEDS ORDERED: HumaLOG 300 UNITS/3 ML VIAL SC PRN ×2 (17:44)
[2021-03-29] MEDS ORDERED: SUGAMMADEX SODIUM 200 MG/2 ML VIAL ONE (18:05)
[2021-03-29] MEDS ORDERED: Insulin Regular 300 UNITS/3 ML VIAL ONE (18:09)
[2021-03-29] MEDS ORDERED: Dextrose 50% Abboject 50 ML SYRINGE ONE (18:10)
[2021-03-29] MEDS ORDERED: Morphine 4 MG/ML VIAL SLOW IVP PRN (18:25)
[2021-03-29 19:32] LABS: SARS-CoV-2 NAA Rapid Test Not Detected (NotDetected)
[2021-03-29] MEDS: Sodium Chloride 0.9% 1,000 ML IV SCH (20:26)
[2021-03-29] MEDS: CEFAZOLIN 2 GM in Premix Bag 1 BAG IVPB SCH (20:26)
[2021-03-29] MEDS: Acetaminophen 500 MG TAB PO SCH (20:26)
[2021-03-29] MEDS: Senokot S 8.6-50 MG TAB PO SCH (20:27)
[2021-03-29] MEDS: Famotidine 20 MG TAB PO SCH (20:27)
[2021-03-29] MEDS ORDERED: ceFAZolin 1 GM/D5W 1 GM in Premix Bag 1 BAG IVPB SCH (22:00)
[2021-03-29 22:24] VITALS: BMI 21.6
[2021-03-30] MEDS: Acetaminophen 500 MG TAB PO SCH ×4 (00:50→18:17)
[2021-03-30] MEDS: CEFAZOLIN 2 GM in Premix Bag 1 BAG IVPB SCH ×3 (04:58→21:38)
[2021-03-30] MEDS: Sodium Chloride 0.9% 1,000 ML IV SCH (04:59)
[2021-03-30 05:50] LABS: #Eosinphils 0.1 thou/uL (0.0-0.7); #Lymphocytes 1.8 thou/uL (1.20-3.40); #Monocytes 0.8 thou/uL (0.11-0.59); #Neutrophils 5.7 thou/uL (1.40-6.50); %Basophils 0.5 % (0.0-1.0); %Eosinophils 0.8 % (0.0-10.0); %Lymphocytes 21.3 % (21.0-51.0); %Monocytes 9.4 % (0.0-10.0); %Neutrophils 67.9 % (42.0-75.0); Hemoglobin 14.8 g/dL (14.0-18.0); Mean Corpuscular HGB CONC 32.2 g/dL (32.0-36.0); Mean Corpuscular Hemoglobin 33.5 pg (27.0-31.0); Mean Platelet Volume 7.8 fL (7.4-10.4); Platelet Count 203 thou/uL (130-400); RBC Distribution Width 13.3 % (11.5-14.5); Red Blood Cell (RBC) Count 4.41 mill/uL (4.70-6.10); White Blood Cell (WBC) Count 8.3 thou/uL (4.8-10.8)
[2021-03-30 06:17] LABS: Anion Gap 22 mmol/L (10-20); BUN (Urea Nitrogen) 58 mg/dL (8.9-20.6); Calc. Creatinine Clearance 6 mL/min (70-130); Calcium 8.3 mg/dL (7.8-10.44); Carbon Dioxide 21 mmol/L (22-29); Chloride 97 mmol/L (98-107); Glucose 96 mg/dL (70-105); Potassium 4.2 mmol/L (3.5-5.1); Sodium 136 mmol/L (136-145)
[2021-03-30] MEDS: Senokot S 8.6-50 MG TAB PO SCH ×2 (07:58→21:38)
[2021-03-30] MEDS: Ondansetron PF 4 MG/2 ML Vial IVP PRN ×2 (07:58→12:03)
[2021-03-30] MEDS: Polyethylene Glycol 3350 17 GM Packet PO SCH (08:00)
[2021-03-30] MEDS: Acetaminophen/Codeine 30-300mg Tablet PO PRN (12:03)
[2021-03-30] MEDS ORDERED: Ondansetron PF 4 MG/2 ML Vial IVP PRN (18:38)
[2021-03-30] MEDS: Famotidine 20 MG TAB PO SCH (21:38)
[2021-03-31] MEDS: Acetaminophen 500 MG TAB PO SCH (00:17)
[2021-03-31] MEDS: Acetaminophen/Codeine 30-300mg Tablet PO PRN ×3 (00:20→12:00)
[2021-03-31] MEDS: Acetaminophen 325 MG TAB PO SCH ×2 (00:22→06:04)
[2021-03-31] MEDS: hydrALAZINE 20 MG/ML VIAL SLOW IVP PRN ×2 (05:05→11:54)
[2021-03-31] MEDS: CEFAZOLIN 2 GM in Premix Bag 1 BAG IVPB SCH ×2 (06:03→13:50)
[2021-03-31 08:40] LABS: Anion Gap 23 mmol/L (10-20); BUN (Urea Nitrogen) 31 mg/dL (8.9-20.6); Calc. Creatinine Clearance 8 mL/min (70-130); Carbon Dioxide 21 mmol/L (22-29); Chloride 94 mmol/L (98-107); Glucose 98 mg/dL (70-105); Potassium 4.3 mmol/L (3.5-5.1); Sodium 134 mmol/L (136-145)
[2021-03-31] MEDS: Senokot S 8.6-50 MG TAB PO SCH (08:56)
[2021-03-31] MEDS: Polyethylene Glycol 3350 17 GM Packet PO SCH (08:56)
[2021-03-31] MEDS ORDERED: hydrALAZINE 25 MG TAB PO SCH (09:00)
[2021-03-31] MEDS ORDERED: Cholecalciferol 1,000 UNITS (25 MCG) TAB PO SCH (09:00)
[2021-03-31] MEDS ORDERED: Aspirin 81 mg Enteric Coated Tablet PO SCH (09:00)
[2021-03-31] MEDS: Sevelamer Carbonate 800 MG TAB PO SCH ×2 (09:02→12:25)
[2021-03-31 12:11] VITALS: TEMP 98.2
[2021-03-31 16:38] VITALS: BP 168/91
[2021-03-31] MEDS ORDERED: Fenofibrate Nanocrystallized 145 MG TAB PO SCH (17:00)
[2021-03-31] MEDS ORDERED: Carvedilol 25 MG TAB PO SCH (21:00)
[2021-03-31] MEDS ORDERED: Atorvastatin Calcium 10 MG TAB PO SCH (21:00)
== END 2021-03-31 16:41 | disposition home or self-care (01) | DRG 510 ==
LOC: ERS 14:29 → SDC 16:21 → SURG A 17:00
PROVIDERS: ADMIT Surgery; ATTEND Surgery
PROC: 0PSL04Z Reposition Left Ulna with Internal Fixation Device, Open Approach (ICD-10-PCS; principal; 2021-03-29)
PROC: 0HQ0XZZ Repair Scalp Skin, External Approach (ICD-10-PCS; 2021-03-29)
PROC: 5A1D70Z Performance of Urinary Filtration, Intermittent, Less than 6 Hours Per Day (ICD-10-PCS; 2021-03-30)
DX: S52.292B Other fracture of shaft of left ulna, initial encounter for open fracture type I or II (principal); N18.6 End stage renal disease; I12.0 Hypertensive chronic kidney disease with stage 5 chronic kidney disease or end stage renal disease; Z20.822 Contact with and (suspected) exposure to COVID-19; W13.2XXA Fall from, out of or through roof, initial encounter; E78.5 Hyperlipidemia, unspecified; E11.22 Type 2 diabetes mellitus with diabetic chronic kidney disease; S52.292A Other fracture of shaft of left ulna, initial encounter for closed fracture; D63.1 Anemia in chronic kidney disease; Z99.2 Dependence on renal dialysis; Z79.82 Long term (current) use of aspirin; Z79.899 Other long term (current) drug therapy
CPT/HCPCS: 12001; 29125; 36415; 36416; 70450; 71045; 72125; 76000; 80048; 80053; 82550; 85025; 85610; 85730; 90715; 90935; 93005; 93010; 96374; 96375; 96376; C1713; G0257; J0360; J0690; J1815; J2405; J2704; J3010; Q0162; S0020; U0002; U0005

== ENCOUNTER 2021-07-01 15:03 | Emergency (ER) | payer BC | END 2021-07-01 15:13 | disposition home or self-care (01) | LOC: ERS 15:03 | DX: S01.01XD Laceration without foreign body of scalp, subsequent encounter (principal); X58.XXXD Exposure to other specified factors, subsequent encounter ==

== ENCOUNTER 2021-09-30 02:03 | Emergency (ER) | payer BC ==
[2021-09-30] MEDS ORDERED: Albuterol 200 PUFF (6.7GM INHALER) ONE (02:27)
[2021-09-30 02:46] LABS: #Eosinphils 0.3 thou/uL (0.0-0.7); #Lymphocytes 1.4 thou/uL (1.20-3.40); #Monocytes 0.6 thou/uL (0.11-0.59); #Neutrophils 5.4 thou/uL (1.40-6.50); %Basophils 0.4 % (0.0-1.0); %Eosinophils 3.9 % (0.0-10.0); %Lymphocytes 17.6 % (21.0-51.0); %Monocytes 8.1 % (0.0-10.0); %Neutrophils 70.1 % (42.0-75.0); Hemoglobin 9.8 g/dL (14.0-18.0); Mean Corpuscular HGB CONC 33.3 g/dL (32.0-36.0); Mean Corpuscular Hemoglobin 33.9 pg (27.0-31.0); Mean Platelet Volume 7.4 fL (7.4-10.4); Platelet Count 217 thou/uL (130-400); Red Blood Cell (RBC) Count 2.88 mill/uL (4.70-6.10); White Blood Cell (WBC) Count 7.8 thou/uL (4.8-10.8)
[2021-09-30 03:13] LABS: ALT (SGPT) 14 U/L (8-55); AST (SGOT) 24 U/L (5-34); Albumin 3.8 g/dL (3.5-5.0); Alkaline Phosphatase 46 U/L (40-110); Anion Gap 18 mmol/L (10-20); BUN (Urea Nitrogen) 74 mg/dL (8.9-20.6); Bilirubin, Total 0.6 mg/dL (0.2-1.2); Calc. Creatinine Clearance 0 mL/min (70-130); Calcium 8.4 mg/dL (7.8-10.44); Carbon Dioxide 25 mmol/L (22-29); Chloride 99 mmol/L (98-107); Globulin 3.1 g/dL (2.4-3.5); Glucose 78 mg/dL (70-105); Potassium 5.1 mmol/L (3.5-5.1); Protein, Total 6.9 g/dL (6.0-8.3); Sodium 137 mmol/L (136-145)
[2021-09-30 03:33] LABS: CKMB 6.6 ng/mL (0-6.6)
== END 2021-09-30 05:30 | disposition home or self-care (01) ==
LOC: ERS 02:03
DX: I50.9 Heart failure, unspecified (principal); E87.70 Fluid overload, unspecified
CPT/HCPCS: 36415; 71045; 80053; 82553; 83880; 84484; 85025; 93005

== ENCOUNTER 2022-10-05 12:42 | Emergency (ER) | payer BC ==
[2022-10-05 13:27] LABS: #Eosinphils 0.2 thou/uL (0.0-0.7); #Lymphocytes 1.5 thou/uL (1.20-3.40); #Monocytes 0.6 thou/uL (0.11-0.59); #Neutrophils 3.7 thou/uL (1.40-6.50); %Basophils 0.8 % (0.0-1.0); %Eosinophils 2.8 % (0.0-10.0); %Lymphocytes 24.8 % (21.0-51.0); %Monocytes 10.1 % (0.0-10.0); %Neutrophils 61.5 % (42.0-75.0); Hemoglobin 8.8 g/dL (14.0-18.0); Mean Corpuscular HGB CONC 34.3 g/dL (32.0-36.0); Mean Corpuscular Hemoglobin 34.8 pg (27.0-31.0); Mean Platelet Volume 7.5 fL (7.4-10.4); Platelet Count 235 10x3/uL (130-400); RBC Distribution Width 14.1 % (11.5-14.5); Red Blood Cell (RBC) Count 2.54 mill/uL (4.70-6.10); White Blood Cell (WBC) Count 6.1 10x3/uL (4.8-10.8)
[2022-10-05 13:54] LABS: Anion Gap 21 mmol/L (10-20); BUN (Urea Nitrogen) 61 mg/dL (8.9-20.6); Calc. Creatinine Clearance 0 mL/min (70-130); Carbon Dioxide 26 mmol/L (22-29); Chloride 99 mmol/L (98-107); Estimated GFR 6; Glucose 94 mg/dL (70-105); Potassium 5.6 mmol/L (3.5-5.1); Sodium 140 mmol/L (136-145)
== END 2022-10-05 14:13 | disposition home or self-care (01) ==
LOC: ERS 12:42
DX: E11.22 Type 2 diabetes mellitus with diabetic chronic kidney disease (principal); N18.6 End stage renal disease; I12.9 Hypertensive chronic kidney disease with stage 1 through stage 4 chronic kidney disease, or unspecified chronic kidney disease; H02.841 Edema of right upper eyelid; H02.842 Edema of right lower eyelid; F17.210 Nicotine dependence, cigarettes, uncomplicated; Z79.899 Other long term (current) drug therapy; Z79.82 Long term (current) use of aspirin
CPT/HCPCS: 36415; 80048; 80053; 85025

== ENCOUNTER 2022-10-06 04:02 | Inpatient (IN) | payer BC ==
[2022-10-06] MEDS ORDERED: Nitroglycerin 50 MG/250 ML BOT 250 ML ONE (04:06)
[2022-10-06] MEDS ORDERED: Rocuronium Bromide 10 MG/ML (10ML VIAL) ONE (04:13)
[2022-10-06] MEDS ORDERED: Fentanyl 100 MCG/2 ML VIAL ONE (04:26)
[2022-10-06 04:34] LABS: Actual Bicarbonate (HCO3a) 26.8 mEq/L (22-28); Analyzer IN Cardio ER; Base Excess (BEa) -2.7 mEq/L (-2.0 to +3.0); Calcium, Ionized (arterial) 1.14 mmol/L (1.12-1.30); Carboxyhemoglobin (COHb) 0.3 gm% (0.0-3.0); Hemoglobin (Hb) 10.4 g/dL (14.0-18.0); O2 Tension (PaO2), arterial 99.2 mmHg (80.0-100.0)
[2022-10-06] MEDS ORDERED: Magnesium 2 GM/50 ML BAG (IN WATER) ONE (04:40)
[2022-10-06] MEDS ORDERED: Calcium Gluc 4.6 MEQ/10 ML (100 MG/ML) ONE (04:40)
[2022-10-06] MEDS ORDERED: Sodium Bicarb 50 MEQ/50 ML VIAL ONE (04:40)
[2022-10-06] MEDS ORDERED: Morphine CADD 100 ML IVPB SCH (04:45)
[2022-10-06 05:10] LABS: CO2 Tension 74.4 mmHg (35.0-45.0); Potassium - ABG Lab 6.45 mmol/L (3.70-5.30); Puncture Site RRA; pH, Arterial 7.17 (7.35-7.45)
[2022-10-06] MEDS ORDERED: Ondansetron ODT 4 MG TAB PO PRN (05:14)
[2022-10-06] MEDS ORDERED: Acetaminophen 325 MG TAB PO PRN (05:14)
[2022-10-06] MEDS ORDERED: Ondansetron PF 4 MG/2 ML Vial IVP PRN (05:14)
[2022-10-06] MEDS ORDERED: Acetaminophen 650 MG Suppository PR PRN (05:14)
[2022-10-06] MEDS ORDERED: Ventilator Sedation Protocol 1 EACH FS SCH (05:15)
[2022-10-06 05:23] LABS: #Eosinphils 0.2 thou/uL (0.0-0.7); #Lymphocytes 1.1 thou/uL (1.20-3.40); #Monocytes 0.6 thou/uL (0.11-0.59); #Neutrophils 15.8 thou/uL (1.40-6.50); %Basophils 0.2 % (0.0-1.0); %Eosinophils 1.4 % (0.0-10.0); %Lymphocytes 6.1 % (21.0-51.0); %Monocytes 3.4 % (0.0-10.0); %Neutrophils 88.9 % (42.0-75.0); Hemoglobin 9.6 g/dL (14.0-18.0); Mean Corpuscular HGB CONC 33.3 g/dL (32.0-36.0); Mean Corpuscular Hemoglobin 34.4 pg (27.0-31.0); Mean Platelet Volume 7.6 fL (7.4-10.4); Platelet Count 270 10x3/uL (130-400); RBC Distribution Width 14.1 % (11.5-14.5); Red Blood Cell (RBC) Count 2.79 mill/uL (4.70-6.10); White Blood Cell (WBC) Count 17.7 10x3/uL (4.8-10.8)
[2022-10-06 05:25] LABS: Actual Bicarbonate (HCO3a) 27.3 mEq/L (22-28); Analyzer IN Cardio ER; CO2 Tension 46.3 mmHg (35.0-45.0); Calcium, Ionized (arterial) 1.06 mmol/L (1.12-1.30); Carboxyhemoglobin (COHb) 0.3 gm% (0.0-3.0); pH, Arterial 7.39 (7.35-7.45)
[2022-10-06] MEDS ORDERED: Midazolam HCl 2 mg/2 ml Vial SLOW IVP PRN (05:26)
[2022-10-06 05:27] LABS: O2 Tension (PaO2), arterial 49.7 mmHg (80.0-100.0); Potassium - ABG Lab 7.62 mmol/L (3.70-5.30)
[2022-10-06 05:28] LABS: ALV-art Gradient 177.625 mmHg (0-20); Puncture Site RRA
[2022-10-06] MEDS ORDERED: Morphine 4 MG/ML VIAL SLOW IVP PRN (05:30)
[2022-10-06] MEDS ORDERED: Propofol BOLUS 1,000 MG/100 ML VIAL IV PRN (05:30)
[2022-10-06 05:39] LABS: ALT (SGPT) 14 U/L (8-55); AST (SGOT) 23 U/L (5-34); Albumin 4.2 g/dL (3.5-5.0); Alkaline Phosphatase 61 U/L (40-110); Anion Gap 21 mmol/L (10-20); BUN (Urea Nitrogen) 76 mg/dL (8.9-20.6); Calc. Creatinine Clearance 0 mL/min (70-130); Calcium 8.8 mg/dL (7.8-10.44); Carbon Dioxide 23 mmol/L (22-29); Chloride 96 mmol/L (98-107); Estimated GFR 5; Globulin 3.4 g/dL (2.4-3.5); Glucose 183 mg/dL (70-105); Protein, Total 7.6 g/dL (6.0-8.3); Sodium 133 mmol/L (136-145)
[2022-10-06 05:45] LABS: Potassium 7.4 mmol/L (3.5-5.1)
[2022-10-06] MEDS ORDERED: Insulin Regular 300 UNITS/3 ML VIAL ONE (05:55)
[2022-10-06] MEDS ORDERED: Dextrose 50% Abboject 50 ML SYRINGE ONE (05:55)
[2022-10-06 06:01] LABS: CKMB 3.7 ng/mL (0-6.6)
[2022-10-06] MEDS ORDERED: Dextrose 50% Abboject 50 ML SYRINGE SLOW IVP PRN (06:25)
[2022-10-06] MEDS ORDERED: HumaLOG 300 UNITS/3 ML VIAL SC PRN ×2 (06:25)
[2022-10-06] MEDS ORDERED: Dextrose 5% in Water 1,000 ML IV PRN (06:25)
[2022-10-06 06:31] LABS: HBSAg Index 0.27 S/CO (0-0.99); Hep B Surf Ag Non-Reactive S/CO (NonReactive)
[2022-10-06 06:40] LABS: Bilirubin, Total 0.4 mg/dL (0.2-1.2)
[2022-10-06 07:20] LABS: SARS-CoV-2 NAA Rapid Test Not Detected (NotDetected)
[2022-10-06 08:24] LABS: HBSAg Index 0.24 S/CO (0-0.99); Hep B Core Total Ab Non-Reactive (NonReactive); Hep B Core Total Index 0.06 S/CO (0-0.79); Hep B Surf Ag Non-Reactive S/CO (NonReactive); Hep C IgG Ab Non-Reactive (NonReactive)
[2022-10-06 08:31] LABS: HBSAB Concentration 16.31 mIU/mL; Hep B Surf AB Reactive (NonReactive)
[2022-10-06] MEDS: Propofol 1,000 MG/100 ML VIAL IV PRN ×2 (08:32→19:00)
[2022-10-06] MEDS: Famotidine/PF 20 mg/2ml Vial SLOW IVP SCH (09:19)
[2022-10-06] MEDS: Heparin 5,000 UNITS/ML VIAL SC SCH ×3 (09:19→20:40)
[2022-10-06] MEDS ORDERED: Heparin 10,000 UNITS/ 10 ML VIAL ONE (10:26)
[2022-10-06] MEDS ORDERED: FLU VACC QS2022-23(6MOS UP)/PF 60 MCG/0.5 ML SYRINGE IM ONE (12:00)
[2022-10-07] MEDS: Propofol 1,000 MG/100 ML VIAL IV PRN (03:43)
[2022-10-07 04:32] LABS: #Lymphocytes 1.2 thou/uL (1.20-3.40); #Monocytes 0.7 thou/uL (0.11-0.59); #Neutrophils 8.7 thou/uL (1.40-6.50); %Eosinophils 0.2 % (0.0-10.0); %Lymphocytes 11.4 % (21.0-51.0); %Monocytes 6.8 % (0.0-10.0); %Neutrophils 81.6 % (42.0-75.0); Hemoglobin 8.7 g/dL (14.0-18.0); Mean Corpuscular HGB CONC 33.3 g/dL (32.0-36.0); Mean Corpuscular Hemoglobin 33.7 pg (27.0-31.0); Mean Platelet Volume 8.1 fL (7.4-10.4); Platelet Count 199 10x3/uL (130-400); RBC Distribution Width 14.1 % (11.5-14.5); White Blood Cell (WBC) Count 10.6 10x3/uL (4.8-10.8)
[2022-10-07 04:49] LABS: Anion Gap 21 mmol/L (10-20); BUN (Urea Nitrogen) 45 mg/dL (8.9-20.6); Calc. Creatinine Clearance 12 mL/min (70-130); Calcium 8.7 mg/dL (7.8-10.44); Carbon Dioxide 25 mmol/L (22-29); Chloride 96 mmol/L (98-107); Estimated GFR 8; Glucose 89 mg/dL (70-105); Sodium 136 mmol/L (136-145)
[2022-10-07 04:50] LABS: Phosphorus 9.1 mg/dL (2.3-4.7)
[2022-10-07 04:51] LABS: Potassium 6.1 mmol/L (3.5-5.1)
[2022-10-07] MEDS: Famotidine/PF 20 mg/2ml Vial SLOW IVP SCH (08:39)
[2022-10-07] MEDS: Heparin 5,000 UNITS/ML VIAL SC SCH ×3 (08:39→20:38)
[2022-10-07] MEDS ORDERED: Aspirin 81 mg Enteric Coated Tablet PO SCH (10:45)
[2022-10-07] MEDS ORDERED: Heparin 10,000 UNITS/ 10 ML VIAL ONE (14:02)
[2022-10-07] MEDS: NIFEdipine XL 60 MG TAB PO SCH (20:36)
[2022-10-07] MEDS ORDERED: Atorvastatin Calcium 40 MG TAB PO SCH (21:00)
[2022-10-08 05:27] LABS: #Eosinphils 0.1 thou/uL (0.0-0.7); #Lymphocytes 1.9 thou/uL (1.20-3.40); #Monocytes 0.7 thou/uL (0.11-0.59); #Neutrophils 6.3 thou/uL (1.40-6.50); %Basophils 0.4 % (0.0-1.0); %Eosinophils 0.8 % (0.0-10.0); %Lymphocytes 21.5 % (21.0-51.0); %Monocytes 7.2 % (0.0-10.0); %Neutrophils 70.1 % (42.0-75.0); Hemoglobin 9.7 g/dL (14.0-18.0); Mean Corpuscular HGB CONC 33.1 g/dL (32.0-36.0); Mean Corpuscular Hemoglobin 33.4 pg (27.0-31.0); Mean Platelet Volume 8.2 fL (7.4-10.4); Platelet Count 211 10x3/uL (130-400); RBC Distribution Width 14.1 % (11.5-14.5); Red Blood Cell (RBC) Count 2.89 mill/uL (4.70-6.10)
[2022-10-08 05:45] LABS: ALT (SGPT) 601 U/L (8-55); AST (SGOT) 873 U/L (5-34); Albumin 4.1 g/dL (3.5-5.0); Alkaline Phosphatase 45 U/L (40-110); Anion Gap 18 mmol/L (10-20); BUN (Urea Nitrogen) 38 mg/dL (8.9-20.6); Bilirubin, Total 0.5 mg/dL (0.2-1.2); Calc. Creatinine Clearance 13 mL/min (70-130); Calcium 9.2 mg/dL (7.8-10.44); Carbon Dioxide 27 mmol/L (22-29); Chloride 97 mmol/L (98-107); Estimated GFR 10; Globulin 3.4 g/dL (2.4-3.5); Glucose 82 mg/dL (70-105); Potassium 4.7 mmol/L (3.5-5.1); Protein, Total 7.5 g/dL (6.0-8.3); Sodium 137 mmol/L (136-145)
[2022-10-08] MEDS ORDERED: Communication Order-Pharmacy FS PRN (08:00)
[2022-10-08] MEDS: NIFEdipine XL 60 MG TAB PO SCH ×2 (08:29→21:11)
[2022-10-08] MEDS: Heparin 5,000 UNITS/ML VIAL SC SCH ×3 (08:30→21:08)
[2022-10-08] MEDS: Aspirin 81 mg Enteric Coated Tablet PO SCH (08:30)
[2022-10-08] MEDS ORDERED: Heparin 10,000 UNITS/ 10 ML VIAL ONE (09:02)
[2022-10-08 13:13] LABS: Iron 263 ug/dL (65-175); Iron Binding Capacity, Total 243 mcg/dL (261-462)
[2022-10-09 05:45] LABS: #Basophils 0.1 thou/uL (0.0-0.2); #Eosinphils 0.2 thou/uL (0.0-0.7); #Lymphocytes 1.5 thou/uL (1.20-3.40); #Monocytes 0.9 thou/uL (0.11-0.59); #Neutrophils 4.7 thou/uL (1.40-6.50); %Basophils 0.8 % (0.0-1.0); %Eosinophils 2.6 % (0.0-10.0); %Lymphocytes 20.8 % (21.0-51.0); %Monocytes 11.7 % (0.0-10.0); Hemoglobin 10.7 g/dL (14.0-18.0); Mean Corpuscular HGB CONC 33.4 g/dL (32.0-36.0); Mean Corpuscular Hemoglobin 33.5 pg (27.0-31.0); Mean Platelet Volume 7.9 fL (7.4-10.4); Platelet Count 238 10x3/uL (130-400); Red Blood Cell (RBC) Count 3.19 mill/uL (4.70-6.10); White Blood Cell (WBC) Count 7.4 10x3/uL (4.8-10.8)
[2022-10-09] MEDS: Heparin 5,000 UNITS/ML VIAL SC SCH ×3 (05:51→21:06)
[2022-10-09] MEDS: Aspirin 81 mg Enteric Coated Tablet PO SCH (05:51)
[2022-10-09] MEDS: NIFEdipine XL 60 MG TAB PO SCH ×2 (05:51→21:06)
[2022-10-09 06:09] LABS: ALT (SGPT) 1001 U/L (8-55); AST (SGOT) 1069 U/L (5-34); Albumin 4.5 g/dL (3.5-5.0); Alkaline Phosphatase 56 U/L (40-110); Anion Gap 18 mmol/L (10-20); BUN (Urea Nitrogen) 29 mg/dL (8.9-20.6); Bilirubin, Total 0.5 mg/dL (0.2-1.2); Calc. Creatinine Clearance 14 mL/min (70-130); Calcium 9.7 mg/dL (7.8-10.44); Carbon Dioxide 25 mmol/L (22-29); Chloride 97 mmol/L (98-107); Estimated GFR 12; Globulin 3.8 g/dL (2.4-3.5); Glucose 89 mg/dL (70-105); Magnesium 2.4 mg/dL (1.6-2.6); Phosphorus 5.2 mg/dL (2.3-4.7); Potassium 4.3 mmol/L (3.5-5.1); Protein, Total 8.3 g/dL (6.0-8.3); Sodium 136 mmol/L (136-145)
[2022-10-09] MEDS ORDERED: Lidocaine 1% (PF) 30 ML VIAL ONE (06:18)
[2022-10-09] MEDS ORDERED: Midazolam HCl 2 mg/2 ml Vial ONE (06:45)
[2022-10-09] MEDS ORDERED: FENTANYL 50 MCG/ML 1 ML VIAL ONE (06:45)
[2022-10-09] MEDS ORDERED: Morphine 4 MG/ML VIAL ONE (07:34)
[2022-10-09] MEDS ORDERED: Nitroglycerin 0.4 MG TAB (25 Tab Bottle) SL PRN (08:34)
[2022-10-09] MEDS ORDERED: Acetaminophen/Codeine 30-300mg Tablet PO PRN ×2 (08:34)
[2022-10-09] MEDS ORDERED: Sodium Chloride 0.9% 200 ML IV PRN (08:34)
[2022-10-09 08:55] LABS: CK (CPK) 101 U/L (30-200)
[2022-10-09] MEDS ORDERED: Famotidine 20 MG TAB PO SCH (09:00)
[2022-10-09] MEDS ORDERED: Iopamidol 370 76% 100 ML VIAL ONE (11:18)
[2022-10-09 14:17] LABS: HBCM Index 0.06 S/CO (0-0.79); HBSAg Index 0.23 S/CO (0-0.99); Hep A IgM AB Non-Reactive (NonReactive); Hep A IgM S/CO 0.25 S/CO (0-0.79); Hep B Surf Ag Non-Reactive S/CO (NonReactive); Hep C IgG Ab Non-Reactive (NonReactive); Hep C Index 0.12 S/CO (0-0.79); Hepatitis B Core IgM Abs Non-Reactive (NonReactive)
[2022-10-10] MEDS: Heparin 5,000 UNITS/ML VIAL SC SCH ×2 (07:58→15:48)
[2022-10-10] MEDS: Aspirin 81 mg Enteric Coated Tablet PO SCH (07:58)
[2022-10-10] MEDS: NIFEdipine XL 60 MG TAB PO SCH (07:58)
[2022-10-10 08:30] VITALS: BP 145/84; TEMP 98.1
[2022-10-10 09:39] LABS: Albumin 4.3 g/dL (3.5-5.0)
[2022-10-10 09:40] LABS: Chloride 93 mmol/L (98-107); Potassium 4.9 mmol/L (3.5-5.1); Sodium 131 mmol/L (136-145)
[2022-10-10 09:41] LABS: Calcium 9.4 mg/dL (7.8-10.44); Glucose 89 mg/dL (70-105)
[2022-10-10 09:42] LABS: Globulin 3.4 g/dL (2.4-3.5); Protein, Total 7.7 g/dL (6.0-8.3)
[2022-10-10 09:43] LABS: Anion Gap 20 mmol/L (10-20); Bilirubin, Total 0.4 mg/dL (0.2-1.2); Carbon Dioxide 23 mmol/L (22-29)
[2022-10-10 09:44] LABS: Alkaline Phosphatase 64 U/L (40-110)
[2022-10-10 09:46] LABS: BUN (Urea Nitrogen) 54 mg/dL (8.9-20.6)
[2022-10-10 09:47] LABS: ALT (SGPT) 970 U/L (8-55); AST (SGOT) 795 U/L (5-34)
[2022-10-10 10:04] LABS: Calc. Creatinine Clearance 9 mL/min (70-130); Estimated GFR 7
[2022-10-10] MEDS ORDERED: Carvedilol 6.25 MG TAB PO SCH ×2 (10:15→21:00)
[2022-10-10] MEDS ORDERED: Heparin 10,000 UNITS/ 10 ML VIAL ONE (12:17)
[2022-10-10 16:05] VITALS: BMI 19.8
== END 2022-10-10 16:34 | disposition home or self-care (01) | DRG 208 ==
LOC: ERS 04:02 → ERHOLD 05:14 → CCU 07:03 → 2SW 10-07 18:51
PROVIDERS: ADMIT Emergency Medicine; ATTEND Emergency Medicine
PROC: 5A1D70Z Performance of Urinary Filtration, Intermittent, Less than 6 Hours Per Day (ICD-10-PCS; principal; 2022-10-06)
PROC: 5A1935Z Respiratory Ventilation, Less than 24 Consecutive Hours (ICD-10-PCS; 2022-10-06)
PROC: 4A023N7 Measurement of Cardiac Sampling and Pressure, Left Heart, Percutaneous Approach (ICD-10-PCS; 2022-10-06)
PROC: B2151ZZ Fluoroscopy of Left Heart using Low Osmolar Contrast (ICD-10-PCS; 2022-10-06)
PROC: B2111ZZ Fluoroscopy of Multiple Coronary Arteries using Low Osmolar Contrast (ICD-10-PCS; 2022-10-06)
PROC: 0BH17EZ Insertion of Endotracheal Airway into Trachea, Via Natural or Artificial Opening (ICD-10-PCS; 2022-10-06)
DX: J96.01 Acute respiratory failure with hypoxia (principal); N18.6 End stage renal disease; I12.0 Hypertensive chronic kidney disease with stage 5 chronic kidney disease or end stage renal disease; E87.20 Acidosis, unspecified; E87.1 Hypo-osmolality and hyponatremia; Z20.822 Contact with and (suspected) exposure to COVID-19; E87.70 Fluid overload, unspecified; R74.01 Elevation of levels of liver transaminase levels; E11.22 Type 2 diabetes mellitus with diabetic chronic kidney disease; F17.210 Nicotine dependence, cigarettes, uncomplicated; E87.5 Hyperkalemia; J96.02 Acute respiratory failure with hypercapnia; I16.0 Hypertensive urgency; D63.1 Anemia in chronic kidney disease; D72.829 Elevated white blood cell count, unspecified; I08.1 Rheumatic disorders of both mitral and tricuspid valves; K76.0 Fatty (change of) liver, not elsewhere classified; E78.00 Pure hypercholesterolemia, unspecified; K76.1 Chronic passive congestion of liver; Z78.1 Physical restraint status; Z99.2 Dependence on renal dialysis; Z79.899 Other long term (current) drug therapy; Z79.82 Long term (current) use of aspirin; H02.841 Edema of right upper eyelid; H02.842 Edema of right lower eyelid
CPT/HCPCS: 31500; 36415; 36416; 36600; 51702; 71045; 76705; 80048; 80053; 80074; 82553; 82728; 82805; 83540; 83550; 83605; 83735; 83880; 84100; 84484; 85025; 86704; 87040; 87340; 93005; 93306; 93458; 94002; 94003; 96374; 96375; 99152; 99283; C1769; J0610; J1644; J1815; J2001; J2250; J2270; J2274; J2405; J2704; J3010; J3475; J7620; J7999; Q9967; S0028; U0002

== ENCOUNTER 2023-04-01 11:36 | Inpatient (IN) | payer BC ==
[~2023-04-01 11:36] MED LIST changes: +Heparin 10,000 UNITS/ 10 ML VIAL ONE; -Iopamidol-370 76% 500 ML 1 ML ONE
[2023-04-01] MEDS ORDERED: Ondansetron PF 4 MG/2 ML Vial ONE ×2 (13:49→16:03)
[2023-04-01] MEDS ORDERED: Acetaminophen 500 MG TAB ONE (13:49)
[2023-04-01] MEDS ORDERED: Pantoprazole 40 MG VIAL ONE (14:20)
[2023-04-01 14:21] LABS: #Neutrophils 5.8 thou/uL (1.40-6.50); %Basophils 0.3 % (0.0-1.0); %Lymphocytes 8.3 % (21.0-51.0); %Monocytes 13.1 % (0.0-10.0); %Neutrophils 77.9 % (42.0-75.0); Hemoglobin 12.2 g/dL (14.0-18.0); Mean Corpuscular HGB CONC 34.3 g/dL (32.0-36.0); Mean Platelet Volume 10.1 fL (7.4-10.4); Platelet Count 267 10x3/uL (130-400); RBC Distribution Width 16.9 % (11.5-14.5); Red Blood Cell (RBC) Count 3.49 mill/uL (4.70-6.10); White Blood Cell (WBC) Count 7.5 10x3/uL (4.8-10.8)
[2023-04-01] MEDS ORDERED: Azithromycin 500 MG VIAL ONE (15:14)
[2023-04-01] MEDS ORDERED: cefTRIAXone (ROCEPHIN) 2 GM VIAL ONE (15:14)
[2023-04-01 15:22] LABS: Albumin 3.4 g/dL (3.5-5.0)
[2023-04-01 15:23] LABS: Calcium 8.5 mg/dL (7.8-10.44); Chloride 91 mmol/L (98-107); Potassium 4.7 mmol/L (3.5-5.1); Sodium 129 mmol/L (136-145)
[2023-04-01 15:24] LABS: Globulin 3.2 g/dL (2.4-3.5); Glucose 86 mg/dL (70-105); Protein, Total 6.6 g/dL (6.0-8.3)
[2023-04-01 15:26] LABS: Anion Gap 17 mmol/L (10-20); Bilirubin, Total 0.3 mg/dL (0.2-1.2); Carbon Dioxide 26 mmol/L (22-29)
[2023-04-01 15:27] LABS: Alkaline Phosphatase 39 U/L (40-110); Calc. Creatinine Clearance 0 mL/min (70-130); Estimated GFR 5
[2023-04-01 15:28] LABS: BUN (Urea Nitrogen) 38 mg/dL (8.9-20.6)
[2023-04-01 15:29] LABS: AST (SGOT) 24 U/L (5-34)
[2023-04-01 15:30] LABS: ALT (SGPT) 12 U/L (8-55); Lipase 45 U/L (8-78)
[2023-04-01] MEDS ORDERED: Ondansetron PF 4 MG/2 ML Vial IVP PRN (16:41)
[2023-04-01] MEDS ORDERED: guaiFENesin 200 MG TAB PO PRN (16:45)
[2023-04-01] MEDS ORDERED: Metoclopramide HCl 10 MG/2 ML VIAL IVP PRN (16:46)
[2023-04-01 17:44] LABS: Troponin I 0.052 ng/mL (< 0.028)
[2023-04-01] MEDS ORDERED: Ondansetron ODT 4 MG TAB PO PRN (20:43)
[2023-04-01] MEDS ORDERED: Labetalol HCl 100 MG TAB PO SCH (21:00)
[2023-04-01 22:16] LABS: Troponin I 0.051 ng/mL (< 0.028)
[2023-04-02] MEDS: Atorvastatin Calcium 10 MG TAB PO SCH ×2 (01:10→20:34)
[2023-04-02] MEDS: Carvedilol 25 MG TAB PO SCH ×3 (01:10→17:48)
[2023-04-02] MEDS: Pantoprazole 40 MG VIAL IVP SCH ×3 (01:11→20:35)
[2023-04-02] MEDS: Acetaminophen 325 MG TAB PO PRN ×2 (04:35→20:32)
[2023-04-02 04:45] LABS: #Monocytes 0.5 thou/uL (0.11-0.59); %Basophils 0.1 % (0.0-1.0); %Lymphocytes 9.8 % (21.0-51.0); %Monocytes 7.2 % (0.0-10.0); %Neutrophils 82.1 % (42.0-75.0); Hemoglobin 11.5 g/dL (14.0-18.0); Mean Corpuscular Hemoglobin 34.1 pg (27.0-31.0); Mean Corpuscular Volume 103.3 fl (78.0-98.0); Mean Platelet Volume 9.7 fL (7.4-10.4); Platelet Count 240 10x3/uL (130-400); Red Blood Cell (RBC) Count 3.37 mill/uL (4.70-6.10); White Blood Cell (WBC) Count 7.3 10x3/uL (4.8-10.8)
[2023-04-02 05:09] LABS: Anion Gap 16 mmol/L (10-20); BUN (Urea Nitrogen) 15 mg/dL (8.9-20.6); Calc. Creatinine Clearance 13 mL/min (70-130); Carbon Dioxide 27 mmol/L (22-29); Chloride 92 mmol/L (98-107); Estimated GFR 10; Glucose 107 mg/dL (70-105); Potassium 3.9 mmol/L (3.5-5.1); Sodium 131 mmol/L (136-145)
[2023-04-02 09:30] VITALS: BMI 21.2
[2023-04-02] MEDS: Lanthanum Carbonate 500 mg Chewable Tablet PO SCH (10:07)
[2023-04-02] MEDS: Amlodipine 10 MG TAB PO SCH (10:07)
[2023-04-02] MEDS: hydrALAZINE 25 MG TAB PO SCH ×3 (10:08→20:31)
[2023-04-02] MEDS: Fenofibrate 48 MG TAB PO SCH (10:08)
[2023-04-02] MEDS ORDERED: cefTRIAXone\\ROCEPHIN 1 GM in Sodium Chloride 0.9% 100 ML IVPB SCH (16:00)
[2023-04-02] MEDS ORDERED: Azithromycin 500 MG in Sodium Chloride 0.9% 250 ML 250 ML IVPB SCH (17:00)
[2023-04-03 06:10] LABS: #Monocytes 0.6 thou/uL (0.11-0.59); #Neutrophils 3.1 thou/uL (1.40-6.50); %Basophils 0.5 % (0.0-1.0); %Eosinophils 0.9 % (0.0-10.0); %Lymphocytes 12.7 % (21.0-51.0); %Monocytes 13.9 % (0.0-10.0); %Neutrophils 71.1 % (42.0-75.0); Hemoglobin 11.3 g/dL (14.0-18.0); Mean Corpuscular HGB CONC 33.2 g/dL (32.0-36.0); Mean Corpuscular Hemoglobin 33.3 pg (27.0-31.0); Mean Corpuscular Volume 100.3 fl (78.0-98.0); Mean Platelet Volume 10.3 fL (7.4-10.4); Platelet Count 262 10x3/uL (130-400); RBC Distribution Width 16.5 % (11.5-14.5); Red Blood Cell (RBC) Count 3.39 mill/uL (4.70-6.10); White Blood Cell (WBC) Count 4.4 10x3/uL (4.8-10.8)
[2023-04-03 07:51] LABS: Anion Gap 17 mmol/L (10-20); BUN (Urea Nitrogen) 33 mg/dL (8.9-20.6); Calc. Creatinine Clearance 9 mL/min (70-130); Calcium 8.9 mg/dL (7.8-10.44); Carbon Dioxide 23 mmol/L (22-29); Chloride 93 mmol/L (98-107); Estimated GFR 6; Glucose 104 mg/dL (70-105); Sodium 129 mmol/L (136-145)
[2023-04-03] MEDS: hydrALAZINE 25 MG TAB PO SCH ×2 (07:54→14:04)
[2023-04-03] MEDS: Pantoprazole 40 MG VIAL IVP SCH (07:54)
[2023-04-03] MEDS: Fenofibrate 48 MG TAB PO SCH (07:54)
[2023-04-03] MEDS: Amlodipine 10 MG TAB PO SCH (07:55)
[2023-04-03] MEDS: Carvedilol 25 MG TAB PO SCH (07:55)
[2023-04-03] MEDS: Lanthanum Carbonate 500 mg Chewable Tablet PO SCH (07:57)
[2023-04-03 07:58] VITALS: BP 158/82; TEMP 98.6
[2023-04-03] MEDS ORDERED: Heparin 10,000 UNITS/ 10 ML VIAL ONE (13:56)
== END 2023-04-03 16:01 | disposition home or self-care (01) | DRG 193 ==
LOC: ERS 11:36 → 2NO 18:31 → T4-A 04-02 12:09
PROVIDERS: ADMIT Family Medicine; ATTEND Hospitalist
PROC: 5A1D70Z Performance of Urinary Filtration, Intermittent, Less than 6 Hours Per Day (ICD-10-PCS; principal; 2023-04-01)
DX: J15.9 Unspecified bacterial pneumonia (principal); N18.6 End stage renal disease; E87.1 Hypo-osmolality and hyponatremia; K92.0 Hematemesis; I12.0 Hypertensive chronic kidney disease with stage 5 chronic kidney disease or end stage renal disease; E11.22 Type 2 diabetes mellitus with diabetic chronic kidney disease; D63.1 Anemia in chronic kidney disease; E78.5 Hyperlipidemia, unspecified; R77.8 Other specified abnormalities of plasma proteins; H11.001 Unspecified pterygium of right eye; Z79.82 Long term (current) use of aspirin; Z79.02 Long term (current) use of antithrombotics/antiplatelets; Z79.84 Long term (current) use of oral hypoglycemic drugs; Z79.810 Long term (current) use of selective estrogen receptor modulators (SERMs); Z79.52 Long term (current) use of systemic steroids; Z98.890 Other specified postprocedural states; Z99.2 Dependence on renal dialysis; Z79.899 Other long term (current) drug therapy
CPT/HCPCS: 36415; 71045; 74176; 80048; 80053; 82553; 83690; 84484; 85025; 90935; 93005; 96361; 96365; 96367; 96375; 96376; C9113; G0257; J0456; J0696; J1644; J2405; J2765; J3490; J7050; Q0162